=== PATIENT | male | born 1940 | race Caucasian/White ===

== ENCOUNTER → 2018-03-01 10:11 | Outpatient (CLI) | payer MEDICARE, MEDICAID, SELFPAY ==
--- NOTE | 2018-03-01 | CA_ITS ---
PROCEDURE: 2-D M-mode and color Doppler study INDICATIONS FOR THE TEST: Chest pain COPD Heart Murmur Tobacco Smoking Palpitations Fatigue Syncope Edema+ Hypertension+Diabetes Mellitus Rheumatic Fever SOB WARREN+Obesity Hyperlipidemia Family History HD Additional History PATIENT INFORMATION HEIGHT: 68 WEIGHT: 180 GENDER: Male B/P: 161/83 2-D/M-MODE INTERPRETATION: 2-D MEASUREMENTS OBSERVED VALUES IN CMS Right Ventricular Dimension (RVDd) 2.4 Interventricular Septum (Thickness)(IVsd) 1.0 Left Ventricular Internal Dimensions(LVIDd) 5.1 Left Ventricular Posterior Wall (Thickness)(LVPWd) 0.9 Aortic Root 2.8 Aortic Cusp Separation 2.1 Left Atrial Dimensions (LAD) 3.9 2D 1. Left atrium is mildly enlarged, left ventricle is normal size, mild qualitative concentric left ventricular hypertrophy, visually estimated ejection fraction 55% with no obvious regional wall motion abnormality. 2. The right atrium and right ventricle are normal size and contractility. 3. The aortic valve is minimally thickened and calcified leaflet continue to display mobility. 4. The mitral and tricuspid valve leaflets are minimally thickened. 5. The pulmonic valve is poorly visualized. 6. No significant pericardial effusion noted. DOPPLER INTERROGATION: Doppler interrogation of the aortic, mitral and tricuspid valvular presence of mild aortic, mild mitral and tricuspid regurgitation, tricuspid and jet velocity is insufficient for calculation of the right ventricular systolic pressure, grade 1 diastolic dysfunction seen with tissue Doppler evidence of raised left atrial pressure. CONCLUSION: 1. Mildly enlarged left atrium, normal left ventricular size, mild qualitative concentric left ventricular hypertrophy, visually estimated ejection fraction 55% with no obvious regional wall motion abnormality, grade 1 diastolic dysfunction seen with tissue Doppler evidence of raised left atrial pressure. 2. Mild aortic, mild mitral and tricuspid regurgitation 3. No significant pericardial effusion noted.
== END ==
PROVIDERS: Family Provider Nurse Practitioner Family; PCP Nurse Practitioner Family; Visit Provider Nurse Practitioner Family
DX: R60.0 Localized edema (principal)
CPT/HCPCS: 93306

== ENCOUNTER 2018-04-16 08:18 | Outpatient (RCR) | payer MEDICARE, MEDICAID, SELFPAY | END 2018-05-21 11:02 | disposition home or self-care (01) | LOC: OT 08:18 | PROVIDERS: Family Provider Nurse Practitioner Family; PCP Nurse Practitioner Family; Visit Provider Orthopaedic Surgery | DX: M19.022 Primary osteoarthritis, left elbow (principal) ==

== ENCOUNTER → 2018-06-04 12:07 | Outpatient (CLI) | payer MEDICARE, MEDICAID, SELFPAY ==
--- NOTE | 2018-06-04 12:14 | NVE_ITS ---
Venous Exam Indications: 782.3 Edema. IMPRESSIONS 1. There is no evidence of significant Reflux. 2. No evidence of deep or superficial vein thrombosis involving the left lower extremity 3. No evidence of deep or superficial vein thrombosis involving the right lower extremity Complete lower extremity venous duplex evaluation. Doppler flow study including spectral analysis, color and hay scale imaging. Location: Vascular laboratory. Patient status: Outpatient. Tables: Venous flow and imaging: + +-------+ + Location Overall Flow properties + +-------+ + Right common femoral Patent Normal phasicity; spontaneous; normal augmentation; compressible + +-------+ + Right saphenofemoral junction Patent Compressible + +-------+ + Right profunda femoral Patent Compressible + +-------+ + Right femoral Patent Normal phasicity; spontaneous; normal augmentation; compressible; no reflux + +-------+ + Right greater saphenous Patent Normal phasicity; spontaneous; normal augmentation; compressible + +-------+ + Right popliteal Patent Normal phasicity; spontaneous; normal augmentation; compressible + +-------+ + Right posterior tibial Patent Compressible + +-------+ + Right peroneal Patent Compressible + +-------+ + Right gastrocnemius Patent Compressible + +-------+ + Right soleal Patent Compressible + +-------+ + Left common femoral Patent Normal phasicity; spontaneous; normal augmentation; compressible + +-------+ + Left saphenofemoral junction Patent Compressible + +-------+ + Left profunda femoral Patent Compressible + +-------+ + Left femoral Patent Normal phasicity; spontaneous; normal augmentation; compressible + +-------+ + Left greater saphenous Patent Normal phasicity; spontaneous; normal augmentation; compressible + +-------+ + Left popliteal Patent Normal phasicity; spontaneous; normal au
--- NOTE | 2018-06-04 12:17 | US_ITS ---
US Arterial Ankle Brachial Ind History: Pain with walking, claudication ORDERING PHYSICIAN: Jackelyn Thompson PATIENT AGE: 78 years TECHNIQUE: Segmental pressures obtained of both right and left leg. These are compared to brachial blood pressure to yield index at each level sampled including summary HANNAH. The data sheets from the procedure are available in PACS FINDINGS Rest study only performed today No prior studies available for comparison. Blood pressures reported are in millimeters mercury. RIGHT LEG HANNAH = 1.2. RIGHT LEG TBI=.8 Brachial BP: 183 Thigh BP: 197 Calf BP: 211 Ankle PT: 214 Ankle DP : 200 Digit =147 LEFT LEG HANNAH = .9 LEFT LEG TBI= .8 Brachial BPD: 174 Thigh BP: 199 Calf BP: 196 Ankle PT:158 Ankle DP: 151 Digit = 153 Pulses and waveforms: Normal IMPRESSION: The ABIs as reported above are within normal limits. Waveforms and pulses are also unremarkable.
== END ==
PROVIDERS: Family Provider Nurse Practitioner Family; PCP Nurse Practitioner Family; Visit Provider Nurse Practitioner Family
DX: R60.1 Generalized edema (principal); R09.89 Other specified symptoms and signs involving the circulatory and respiratory systems
CPT/HCPCS: 93922; 93970

== ENCOUNTER → 2020-10-23 09:10 | Outpatient (CLI) | payer MEDICARE, MEDICAID, SELFPAY ==
--- NOTE | 2020-10-23 09:17 | XR_ITS ---
PROCEDURE: XR CHEST 2V CLINICAL HISTORY: COUGH COMPARISON: CR CXR CHEST(2 VIEWS-NOT PORTABLE) from 03/30/2016 CT CTAC CTA-CHEST from 03/30/2016 CR CXR CHEST(2 VIEWS-NOT PORTABLE) from 07/30/2016 CR CXR2V XR chest 2V from 04/04/2018 FINDINGS: Normal heart size. There is some prominence of the right hilum which has developed in the interval. This may only be related to vascular crowding. Follow-up is suggested with better inspiration. Alternatively, CT chest with contrast may be of further value is well. There is some minimal thickening pleural thickening bilaterally.. No lobar consolidation or collapse. There are degenerative changes in the thoracic spine. IMPRESSION: Prominent right hilum which may be result of less than optimal inspiration with vascular crowding. Follow-up suggested to exclude underlying hilar pathology. Otherwise negative Dictated by: Wade Nugent MD 10/23/2020 10:21 Wade Nugent MD in [place] 10/23/2020 10:21
== END ==
PROVIDERS: PCP Nurse Practitioner; Visit Provider Nurse Practitioner
DX: R05 Cough (principal)
CPT/HCPCS: 71046

== ENCOUNTER → 2020-10-29 09:13 | Outpatient (CLI) | payer MEDICARE, MEDICAID, SELFPAY ==
--- NOTE | 2020-10-29 09:18 | CT_ITS ---
PROCEDURE: CT CHEST W CON CLINCAL INDICATION: COUGH [id number] COMPARISON: CT CTAC CTA-CHEST from 03/30/2016 CR XR CHEST 2V from 10/23/2020 TECHNIQUE: IV Contrast: 75ml Isovue 370 Axial images obtained with sagittal and coronal reformats. All CT scans at the facility use one or more dose reduction, viz: automated exposure control, ma/kV adjustment per patient size (including targeted exams where dose is matched to indication, i.e. head), or iterative reconstruction technique. FINDINGS: HEART AND MEDIASTINAL STRUCTURES: There are few scattered small lymph nodes. No evidence of aortic aneurysm or dissection. No mediastinal or hilar mass. There are small bilateral hilar lymph nodes and mildly prominent subcarinal lymph node measuring up to 2 cm slightly more prominent compared to the previous exam. Hilar nodes are also slightly more prominent. Right hilar node measures 1.9 by 1.3 cm. Coronary artery calcifications LUNGS AND PLEURAL SPACES: Old granulomatous disease. Chronic changes are present in the lower lobes with nodular areas noted in the major fissure on the right not significantly changed. Motion artifact does somewhat obscure fine detail of the lungs and could obscure small nodules. There is an area of atelectasis or infiltrate within the left lower lobe anteriorly and left lower lobe laterally. BONY STRUCTURES: Degenerative changes thoracic spine UPPER ABDOMEN: Diffuse fatty liver infiltration. Questionable small gallstone. ADDITIONAL FINDINGS: No other significant abnormalities. IMPRESSION: 1. Mildly prominent mediastinal and hilar lymph nodes nonspecific. Right hilar node may account for the mild prominence of the mediastinum noted on the radiograph. 2. Old granulomatous disease with chronic changes 3. Left lower lobe atelectasis or infiltrate Dictated by: Wade Nugent MD 10/30/2020 12:44 Wade Nugent MD in [place] 10/30/2020 12:44
[2020-10-29 09:45] LABS: Blood Urea Nitrogen 15 mg/dl (9-20); Estimated Glomerular Filt Rate 58 ml/min (>60); GFR (African American) 70 ML/MIN (>60)
== END ==
PROVIDERS: PCP Nurse Practitioner; Visit Provider Nurse Practitioner
DX: R05 Cough (principal)
CPT/HCPCS: 36415; 71260; 82565; 84520; Q9967

== ENCOUNTER → 2021-03-03 08:31 | Outpatient (CLI) | payer MEDICARE, MEDICAID, SELFPAY | PROVIDERS: Visit Provider Internal Medicine Gastroenterology | DX: Z01.812 Encounter for preprocedural laboratory examination (principal); Z11.52 Encounter for screening for COVID-19; Z13.810 Encounter for screening for upper gastrointestinal disorder | CPT/HCPCS: U0003 ==

== ENCOUNTER 2021-03-05 10:01 | Day surgery (SDC) | payer MEDICARE, MEDICAID, SELFPAY ==
[2021-03-02 13:31] VITALS: BMI 28.1
[2021-03-05 10:55] VITALS: BP 145/70; PULSE 68; RESP 18; TEMP 36.8; O2SAT 98
[2021-03-05 11:15] LABS: POC Glucose,Bedside 113 (70-110)
--- NOTE | 2021-03-05 11:50 | P.PN_ITS ---
[facility] Anesthesia Checklist - Patient Identification Patient Identification: Arm Band - Structural Data Admitted From: Home Planned Operative Procedure/s: egd Consent for Planned Operative Procedure(s) Verified: Yes Verified Documents: Surgical Consent, History and Physical - NPO Status Verified Time NPO: 00:00 - Additional verifications Anesthesia Reactions: No - Airway Assessment C-Spine Mobility Assessed: Yes (mp2) TMJ Mobility Assessed: Yes Dentition: Edentulous - Neurological Assessment Level of Consciousness: Awake, Alert - Anesthesia Plan Anesthesia Risk discussed: Yes Anesthesia Plan: Verified ASA Class: III Anesthesia Type: MAC [facility] History I have reviewed the patient's past medical history: Yes Medical History: Reports:: Diabetes Mellitus Type 2, Gastroesophageal Reflux Disease(GERD), Hypertension Denies:: Cancer, Diabetes Mellitus Type 1, Internal Pacemaker, MRSA, Seizures *Have you ever received a pneumonia vaccine?: Yes *Have you received a flu vaccine this season?: Yes Other Medical History: Reports: Hypothyroidism Anesthesia experience/problems:: nac Other Surgeries: Yes: No Previous Surgery. No: Pacemaker Amputation: No Fractures: No - *Social History Smoking Status: Never smoker Tobacco Type: smokeless tobacco # Packs/Day (cigarettes): 1 Alcohol Intake: never Substance Use Type: denies use *Occupational Status:: other *Travel in the last 8 weeks: None Family Hx:: No significant family history
--- NOTE | 2021-03-05 11:58 | HMH.PROC ---
[facility] Procedure Note Procedure Note:: Upper Endoscopy Procedure Report: Esophagogastroduodenoscopy with cold biopsies and TTS balloon dilation Endoscopost: Iain Schwarz II, MD Referring Physician: PIETRO Garcia Date of Procedure: March 05, 2021 Equipment: Olympus GIF 190 standard upper endoscope Sedation: MAC sedation Indications: Mr. Saldaña is an 81-year-old gentleman with coughing, choking and dysphagia. This primarily occurs with solid foods and he has had this for the last 2 or 3 years. The patient reports no heartburn or reflux. He reports no belching, indigestion, bloating or dyspepsia. The patient's sed rate was 2. He has normal hemoglobin 14.6 and hematocrit 42.8. His DENISE screen was negative and his C reactive protein was 5.0. He did have a CT scan of the chest that did show old granulomatous changes and some chronic changes in the lower lobes with nodular areas noted. There was also some mildly prominent mediastinal and hilar lymph nodes. The patient's tuberculosis quantiferon was normal. Procedure: Prior to the procedure, a history and physical exam was performed, and patient's medications and allergies were reviewed. The risks, benefits and alternatives of the sedation and procedure were discussed with the patient. All questions were answered and informed consent was obtained. The patient was brought to the procedure room. Patient identification and proposed procedure were verified by the physician and the nurse. The patient was placed in a left lateral decubitus position and the scope was passed under direct vision. Throughout the procedure, the patient's blood pressure, pulse, and oxygen saturations were monitored continuously. The upper GI endoscopy was accomplished without difficulty. The patient tolerated the procedure well. Findings: The scope was passed directly into the upper esophagus and advanced to the third portion of the duodenum. The post bulbar duodenum and duodenal bulb were normal with normal mucosa and conniventes. The scope was withdrawn through a normal duodenal bulb and pylorus into the stomach. There was mild linear reactive gastropathy of the antrum. There was some mild chronic gastritis of the body and fundus of the stomach. Cold biopsies were obtained from the lesser curvature. Upon retroflexion there was a small 1 to 2 cm hiatal hernia. The scope was then withdrawn into the esophagus. There was a distal Schatzki's ring. There was no evidence of reflux esophagitis. There was a serrated Z-line and biopsies were taken at the GE junction. The Schatzki's ring and entire esophagus were dilated to 60 Indonesian/20 mm with a TTS hydrostatic balloon. There was some mild esophageal dysmotility. There was some cricopharyngeal spasm. The remainder of the esophageal mucosa was normal. Impression: 1. Cricopharyngeal spasm status post dilation to 20 mm 2. Schatzki's ring dilated to 20 mm 3. Nonerosive GERD with mild esophageal dysmotility and very small sliding hiatal hernia 4. Mild linear gastropathy of antrum and mild chronic gastritis (type A) Plan: I will follow-up the biopsies. I will place the patient on omeprazole 40 mg daily for 3 months. I will discuss the findings with the patient and family.
[2021-03-05 12:00] VITALS: BP 136/68; PULSE 58; RESP 18; TEMP 36.1; O2SAT 97
[2021-03-05 12:10] VITALS: BP 139/83; PULSE 53; RESP 18; O2SAT 92
[2021-03-05 12:20] VITALS: BP 151/71; PULSE 53; RESP 18; O2SAT 93
[2021-03-05 12:30] VITALS: BP 162/72; PULSE 52; RESP 18; O2SAT 94
[2021-03-05 12:40] VITALS: O2SAT 97
== END 2021-03-05 12:30 | disposition home or self-care (01) ==
LOC: OUTP 10:03
PROVIDERS: PCP Nurse Practitioner; Visit Provider Internal Medicine Gastroenterology
PROC: 0DJ08ZZ Inspection of Upper Intestinal Tract, Via Natural or Artificial Opening Endoscopic (ICD-10-PCS; CPT 43235; principal; 2021-03-05 11:30)
DX: J39.2 Other diseases of pharynx (principal); K22.2 Esophageal obstruction; K21.9 Gastro-esophageal reflux disease without esophagitis; K22.4 Dyskinesia of esophagus; K44.9 Diaphragmatic hernia without obstruction or gangrene; K31.9 Disease of stomach and duodenum, unspecified; K29.50 Unspecified chronic gastritis without bleeding; E11.9 Type 2 diabetes mellitus without complications; I10 Essential (primary) hypertension; E07.9 Disorder of thyroid, unspecified; Z79.899 Other long term (current) drug therapy
CPT/HCPCS: 43239; 43249; 82962; 88305; C1726

== ENCOUNTER → 2021-03-29 14:07 | Outpatient (CLI) | payer MEDICARE, MEDICAID, SELFPAY ==
--- NOTE | 2021-03-29 14:19 | CT_ITS ---
PROCEDURE: CT CHEST WO CON CLINICAL INDICATION: Adenopathy F/U COMPARISON: CT CT CHEST W CON from 10/29/2020 TECHNIQUE: Axial images obtained with sagittal and coronal reformats. All CT scans at the facility use one or more dose reduction, viz: automated exposure control, ma/kV adjustment per patient size (including targeted exams where dose is matched to indication, i.e. head), or iterative reconstruction technique. FINDINGS: HEART AND MEDIASTINAL STRUCTURES: Scattered small nodes in mediastinum and right hilum not significantly changed. Coronary artery calcifications. LUNGS AND PLEURAL SPACES: Old granulomatous disease. 7 x 3 mm fissural nodule in the right minor fissure unchanged. 6 mm nodule just lateral to the heart in the right middle lobe unchanged. Possible 5 mm nodule right lower lobe image 48 versus bifurcating vessel unchanged. 3 mm fissural nodule image 35 unchanged. 3 mm fissural nodule along the major fissure superiorly on the left image 34 unchanged chronic atelectatic/fibrotic change in the left upper lobe inferiorly and left lower lobe inferiorly. No new nodules. No lobar consolidation or collapse. BONY STRUCTURES: Degenerative changes thoracic spine with mild kyphosis. UPPER ABDOMEN: Unremarkable. ADDITIONAL FINDINGS: No other significant abnormalities. IMPRESSION: Overall stable CT appearance of the chest. Evidence of old granulomatous disease with scattered small noncalcified pulmonary nodules which are stable. No change small mediastinal and right hilar lymph nodes Dictated by: Wade Nugent MD 03/30/2021 07:45 Wade Nugent MD in [place] 03/30/2021 07:45
== END ==
PROVIDERS: PCP Nurse Practitioner; Visit Provider Internal Medicine Pulmonary Disease
DX: R59.0 Localized enlarged lymph nodes (principal)
CPT/HCPCS: 71250

== ENCOUNTER 2021-04-22 14:10 | Emergency (ER) | payer MEDICARE, MEDICAID, SELFPAY ==
[2021-04-22 14:41] VITALS: BP 149/90; PULSE 89; RESP 20; TEMP 36.7; O2SAT 96; BMI 28.5
[2021-04-22 14:50] LABS: UTC Strep Screen (Rapid) Positive (Negative)
--- NOTE | 2021-04-22 15:08 | HMH.EDUTC ---
[facility]position Clinical Impression: Strep throat Disposition: Home, Self-Care Condition on Discharge: Good Instructions: Strep Throat, DI for Strep Throat Additional Instructions: Drink plenty of fluids. Take tylenol or ibuprofen for pain or fever. Take the medications as directed. Follow up with your regular doctor. GO TO THE ER FOR ANY WORSENING SYMPTOMS Throw your tooth brush away and get a new one. Prescriptions: Amoxicillin [Amoxicillin 500mg Tab] 500 mg PO TID 10 Days #30 tab Transmission Status: Received by [facility] Referrals: Roselia Brady APRN [Primary Care Provider] - Time of Disposition: 15:11 Medical Decision Making - Medical Records Medical records reviewed: No: I reviewed the patient's medical records. - Jemal Inquiry Pt receiving controlled substance: No Vital Signs: 04/22/21 14:41 04/22/21 15:13 Temperature 98.1 F 98.2 F Temperature Source Oral Pulse Rate 85 Pulse Rate [Right] 89 Respiratory Rate 20 16 Blood Pressure 144/82 H Blood Pressure [Right Arm] 149/90 H Blood Pressure Mean [Right Arm] 109 02 Sat by Pulse Oximetry 96 - Lab Data Lab results reviewed: Yes: I reviewed the patient's lab results. Lab Results 04/22/21 14:47: Strep Scn Rapid Clinic Positive A [facility] HPI - General Stated complaint: headache diarrhea cough Time Seen by Provider: 04/22/21 15:08 Mode of Arrival: Ambulatory Source of Information: Patient Limitations: No Limitations Description of Symptoms (Recalled from Triage Doc. by RN): pt c/o cough, diarhea and CRUZ HEENT Symptoms (Recalled from RN notes): Yes (CRUZ) Resp Symptoms (Recalled from RN notes): Yes (cough) Skin Symptoms (Recalled from RN notes): No MS Symptoms (Recalled from RN notes): No Functional Status (Recalled from RN notes): na - History of Present Illness Provider Complaint: He states that for the past 2 days he has been having sore throat and feeling bad. He denies any cough. - Related Data Home Medications Medication Instructions Recorded Confirmed Amitriptyline HCl [Elavil 50mg 50 mg PO HS 04/04/18 03/30/21 tablet] Amlodipine Besylate [Amlodipine 10 mg PO DAILY 04/04/18 03/30/21 10mg Tab] Gabapentin [Gabapentin 300mg Cap] 300 mg PO TID 04/04/18 03/30/21 Metoprolol Succinate [Toprol XL 50 mg PO DAILY 04/04/18 03/30/21 50mg Tablet] allopurinoL [Allopurinol 300mg 300 mg PO DAILY 04/04/18 03/30/21 tablet] cloNIDine HCL [cloNIDine 0.1mg 0.1 mg PO BID 04/04/18 03/30/21 Tablet] glipizide 10 mg tablet 10 mg PO TID tab 01/25/21 03/30/21 lisinopril 5 mg tablet 5 mg PO DAILY 01/25/21 03/30/21 Empagliflozin [Jardiance] 25 mg PO DAILY 03/05/21 03/30/21 Levothyroxine Sodium 25 mcg PO DAILY 03/05/21 03/30/21 [Levothyroxine 25mcg (0.025mg) Tab] Omeprazole 40 mg PO DAILY 03/05/21 03/30/21 Previous Rx's Medication Instructions Recorded Amoxicillin [Amoxicillin 500mg Tab] 500 mg PO TID 10 Days #30 tab 04/22/21 Allergies Allergy/AdvReac Type Severity Reaction Status Date / Time No Known Allergies Allergy Verified 04/22/21 14:46 - Worker's Comp Is this a Worker's Comp case?: No [facility] History - Hepatitis A Screen Drug use history?: No High risk sexual behaviors?: No History of sexually transmitted infection?: No Currently employed?: No Childcare worker?: No Do you have indoor plumbing?: Yes Do you have electricity?: Yes Attestation statement:: This patient has been screened for Hepatitis A risk factors. I have reviewed the patient's past medical history: Yes Medical History: Reports:: Diabetes Mellitus Type 2, Gastroesophageal Reflux Disease(GERD), Hypertension Denies:: Cancer, Diabetes Mellitus Type 1, Internal Pacemaker, MRSA, Seizures Other Medical History: Reports: Hypothyroidism Other Surgeries: Yes: No Previous Surgery. No: Pacemaker Amputation: No Fractures: No - Social History Smoking Status: Never smoker Tobacco Type: smokeless tob
[2021-04-22 15:13] VITALS: BP 144/82; PULSE 85; RESP 16; TEMP 36.8
== END 2021-04-22 15:21 | disposition home or self-care (01) ==
PROVIDERS: Emergency Provider Nurse Practitioner Family; PCP Nurse Practitioner
DX: J02.0 Streptococcal pharyngitis (principal); E03.9 Hypothyroidism, unspecified; E11.9 Type 2 diabetes mellitus without complications; K21.9 Gastro-esophageal reflux disease without esophagitis; I10 Essential (primary) hypertension; Z79.899 Other long term (current) drug therapy
CPT/HCPCS: G0463; 87880; 99203; U0003

== ENCOUNTER → 2022-12-29 09:33 | Outpatient (CLI) | payer MEDICARE, MEDICAID, SELFPAY ==
--- NOTE | 2022-12-29 09:33 | US_ITS ---
FINAL REPORT CLINICAL HISTORY: abnormal ekg, dyspnea, HTN, right claudication, right rest pain FINDINGS: LOWER EXTREMITY SEGMENTAL PRESSURE MEASUREMENTS FINDINGS: Pressure indices are as follows: RIGHT LOWER EXTREMITY: Thigh: 1.11 Calf: 0.99 Ankle, posterior tibial artery: 0.98 Ankle, dorsalis pedis: 0.96 Toe: 0.99 HANNAH: 0.98, normal LEFT LOWER EXTREMITY: Thigh: 0.92 Calf: 064 Ankle, posterior tibial artery: 0.67 Ankle, dorsalis pedis: 0.96 Toe: 0.56 HANNAH: 0.96, normal IMPRESSION: Normal HANNAH bilaterally. Reviewed, Interpreted and Dictated by Concha Leary MD Transcribed by Mary Rodriguez Authenticated and [facility]
== END ==
PROVIDERS: PCP Physician Assistant; Visit Provider Nurse Practitioner
DX: I10 Essential (primary) hypertension (principal); I73.9 Peripheral vascular disease, unspecified; M25.561 Pain in right knee; R06.09 Other forms of dyspnea; R94.31 Abnormal electrocardiogram [ECG] [EKG]
CPT/HCPCS: 93306; 93923

== ENCOUNTER 2023-06-14 08:48 | Emergency (ER) | payer MEDICARE, MEDICAID, SELFPAY ==
--- NOTE | 2023-06-14 08:54 | ECG_ITS ---
APPROVED REPORT Exam: Resting ECG HR:52 bpm ECG Measurements Heart Rate 52 AXES TN 165 P 43 QRSd 96 QRS -6 QT 454 T 60 QTc 434 Conclusion SINUS BRADYCARDIA INFERIOR MYOCARDIAL INFARCTION , PROBABLY OLD [40+ ms Q WAVE AND/OR ST/T ABNORMALITY IN II/aVF] ABNORMAL ECG UNCONFIRMED REPORT Electronically signed by : Christofer Brown MD 06/15/2023 21:28:45
[2023-06-14 08:58] VITALS: BP 189/76; PULSE 52; O2SAT 95
[2023-06-14 09:01] VITALS: BP 173/94; PULSE 49; O2SAT 96
[2023-06-14 09:02] VITALS: BP 173/94; PULSE 51; RESP 15; TEMP 36.7; O2SAT 96; BMI 27.3
--- NOTE | 2023-06-14 09:11 | PC.NURSE ---
Dr. Vaughn at [facility] for patient eval
--- NOTE | 2023-06-14 09:16 | CT_ITS ---
FINAL REPORT TECHNIQUE: Thin section axial CT with IV contrast supplemented with multiplanar reconstruction under CT angiogram protocol. 3-D reconstructions were performed. This study was performed with techniques to keep radiation doses as low as reasonably achievable (ALARA). Individualized dose reduction techniques using automated exposure control or adjustment of mA and/or kV according to the patient''s size were employed. CLINICAL HISTORY: one week intermittent headache/vertigo FINDINGS: There is 30% stenosis of the basilar artery. There is approximately 30% stenosis of the right M1 segment. No other evidence of stenosis or occlusion is identified. 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 30% stenosis of the right M1 segment. Reviewed, Interpreted and Dictated by Chester Reyes III, MD Transcribed by Italia Isaac Authenticated and [facility]
--- NOTE | 2023-06-14 09:17 | CT_ITS ---
FINAL REPORT TECHNIQUE: Thin section axial CT with IV contrast supplemented with multiplanar reconstruction under CT angiogram protocol. This study was performed with techniques to keep radiation doses as low as reasonably achievable (ALARA). Individualized dose reduction techniques using automated exposure control or adjustment of mA and/or kV according to the patient''s size were employed. NASCET criteria was utilized during interpretation. CLINICAL HISTORY: one week intermittent headache/dizziness FINDINGS: Aortic arch: Arch shows no significant narrowing. Great vessel origins are widely patent. Right carotid: There is calcified plaque at the carotid bifurcation. No significant stenosis is identified. Left carotid: The common carotid artery is intact. There is greater than 70% stenosis at the level of the carotid bulb. The more distal internal carotid artery is normal. 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 The left vertebral artery is patent. 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 Reviewed, Interpreted and Dictated by Chester Reyes III, MD Transcribed by Italia Isaac Authenticated and . [facility]
--- NOTE | 2023-06-14 09:17 | CT_ITS ---
FINAL REPORT CLINICAL HISTORY: one week intermittent headache dizziness COMPARISON: None FINDINGS: Axial images of the head were obtained without contrast. Coronal reformatted images were also obtained. This study was performed with techniques to keep radiation doses as low as reasonably achievable (ALARA). Individualized dose reduction techniques using automated exposure control or adjustment of mA and/or kV according to the patient''s size were employed. There is generalized age-appropriate atrophy. Periventricular low-attenuation areas are seen consistent with mild chronic ischemic changes. There is no evidence of intracranial hemorrhage or mass. 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 There is no evidence of acute infarct. There is no evidence of shift of the midline structures. No skull abnormality is seen on the bone window images. There is mild mucoperiosteal thickening of the right maxillary sinus with right maxillary wall thickening consistent with chronic sinusitis. IMPRESSION: Atrophy and mild periventricular chronic ischemic changes. No acute intracranial abnormality identified. Chronic sinusitis. Reviewed, Interpreted and Dictated by Chester Reyes III, MD Transcribed by Evie Bell Authenticated and [facility]
[2023-06-14 09:28] LABS: Basophils % 0.5 % (0.1-2.0); Eosinophils # 0.2 K/mm3 (0.0-0.4); Eosinophils % 3.5 % (0.1-12.0); Hemoglobin 16.1 g/dL (14.1-18.0); Lymphocytes # 1.8 K/mm3 (0.7-4.5); Lymphocytes % 28.7 % (10-50); Mean Corpuscular HGB Conc 33.6 g/dL (31.8-35.4); Mean Corpuscular Hemoglobin 33.4 pg (27.0-31.2); Mean Corpuscular Volume 99.6 fl (80-94); Mean Platelet Volume 8.8 fl (7.4-10.4); Monocytes # 0.5 K/mm3 (0.1-1.0); Monocytes % 7.2 % (1.7-9.3); Neutrophils # 3.8 K/mm3 (1.8-7.8); Neutrophils % 60.2 % (37.0-80.0); Platelet Count 165 K/mm3 (142-424); Red Blood Count 4.82 M/mm3 (4.60-6.20); Red Cell Distribution Width 13.9 % (11.5-17.5); White Blood Count 6.3 K/mm3 (4.8-10.8)
[2023-06-14 09:29] LABS: Chloride 102 mmol/L (98-107); Potassium 4.1 mmoL/L (3.5-5.1); Sodium 137 mmol/L (136-145)
--- NOTE | 2023-06-14 09:30 | PC.NURSE ---
Pt is out of room to CT scan
[2023-06-14 09:32] LABS: Alanine Aminotransferase 39 U/L (12-78); Albumin Level 4.6 g/dl (3.5-5.0); Albumin/Globulin Ratio 1.7 (1.1-1.8); Alkaline Phosphatase 71 U/L (38-126); Anion Gap 9.1 mEq/L (5-15); Aspartate Amino Transferase 38 U/L (17-59); Bilirubin,Total 0.5 mg/dl (0.2-1.3); Blood Urea Nitrogen 17 mg/dl (9-20); Calcium 9.1 mg/dl (8.4-10.2); Carbon Dioxide 30 mmol/L (22.0-30.0); Creatinine Clearance Estimated 52 mL/min (50-200); Estimated Glomerular Filt Rate 58 ml/min (>60); GFR (African American) 70 ML/MIN (>60); Globulin 2.7 g/dL (1.3-3.2); Glucose 150 mg/dl (74-100); Total Protein,Serum 7.3 g/dl (6.3-8.2)
--- NOTE | 2023-06-14 10:11 | HMH.EDGENADL ---
Discharge Plan Disposition Patient Disposition: Home, Self-Care Prescriptions Prescriptions: New aspirin [Adult Aspirin Regimen] 81 mg tablet,delayed release (DR/EC) 81 mg PO DAILY Qty: 60 0RF clopidogrel 75 mg tablet 75 mg PO DAILY Qty: 60 0RF No Action lisinopril 40 mg tablet 40 mg PO DAILY Qty: 30 2RF glipizide 10 mg tablet 10 mg PO TID clonidine HCl 0.1 MG tablet 0.1 mg PO BID metoprolol succinate 50 MG tablet 50 mg PO DAILY amitriptyline 50 MG tablet 50 mg PO HS amlodipine 10 MG tablet 10 mg PO DAILY gabapentin 300 MG capsule 300 mg PO TID allopurinol 300 MG tablet 300 mg PO DAILY levothyroxine 25 MCG tablet 25 mcg PO DAILY empagliflozin 25 MG tablet 25 mg PO DAILY omeprazole 40 MG capsule,delayed release(DR/EC) 40 mg PO DAILY Referrals Follow up/Referrals: Roselia Brady APRN [Primary Care Provider] - See instructions Activity Restrictions/Add. Instructions Additional Instructions/Restrictions: Please call [facility] stroke clinic at [phone] as soon as possible to follow-up and be seen in clinic for possible stroke. Please begin taking aspirin 81 mg daily and clopidogrel 75 mg daily until follow-up with stroke. Please return the emergency department if you develop any new or worsening symptoms or become concerned for your health. Clinical Impressions Clinical Impression: Vertigo, Occlusion of right vertebral artery, Stroke Discharge ED Provider: Jono Vaughn Adult HPI General Chief complaint: Dizziness Stated complaint: HEADACHE, DIZZINESS, NO BALANCE Time Seen by Provider: 06/14/23 09:06 Mode of Arrival: Ambulatory Source of Information: Patient and Relative Limitations: No Limitations Description of Symptoms (Recalled from ER Triage Doc. by RN): 83 yo M presents to ED with c/o weakness, headache, dizziness. pt reports symptons ongoing for the past week. History of Present Illness HPI narrative: 83-year-old male, history of hypertension, [id number] diabetes presents with intermittent headache and vertigo starting 1 week ago. He reports that he symptoms gets headaches but this is more significant than normal. Reports approximate 7 out of 10. Frontal in nature. Patient ports that he sometimes gets dizzy, but he feels like the room is spinning and this is definitely different than normal. He reports that the symptoms sometimes go away, but it been ongoing for a couple of days at least most recently. Denies any recent fever or illness, denies any recent trauma. Related Data Home Medications Medication Instructions Recorded Confirmed allopurinol 300 mg tablet 300 mg PO DAILY GOUT 04/04/18 02/28/23 amitriptyline 50 mg tablet 50 mg PO HS SLEEP 04/04/18 02/28/23 amlodipine 10 mg tablet 10 mg PO DAILY HTN 04/04/18 02/28/23 clonidine HCl 0.1 mg tablet 0.1 mg PO BID HTN 04/04/18 02/28/23 gabapentin 300 mg capsule 300 mg PO TID NEUROPATHY 04/04/18 02/28/23 metoprolol succinate 50 mg 50 mg PO DAILY HTN 04/04/18 02/28/23 tablet,extended release 24 hr glipizide 10 mg tablet 10 mg PO TID Diabetes 01/25/21 02/28/23 empagliflozin 25 mg tablet 25 mg PO DAILY Diabetes 03/05/21 02/28/23 levothyroxine 25 mcg tablet 25 mcg PO DAILY thyroid 03/05/21 02/28/23 omeprazole 40 mg capsule,delayed 40 mg PO DAILY GERD 03/05/21 02/28/23 release Previous Rx's Medication Instructions Recorded lisinopril 40 mg tablet 40 mg PO DAILY #30 tabs 01/17/23 aspirin 81 mg tablet,delayed 81 mg PO DAILY #60 tabs 06/14/23 release (Adult Aspirin Regimen) clopidogrel 75 mg tablet 75 mg PO DAILY #60 tabs 06/14/23 Allergies Allergy/AdvReac Type Severity Reaction Status Date / Time No Known Allergies Allergy Verified 01/17/23 09:36 [facility] Disclaimer: The information contained in this section may have been updated after the patient was seen, as this information can be updated by other users. Social Histo
--- NOTE | 2023-06-14 10:31 | PC.NURSE ---
Ambulatory to restroom with assistance from staff and cane. No complications
[2023-06-14 10:36] VITALS: BP 184/92; PULSE 52; RESP 20; O2SAT 96
--- NOTE | 2023-06-14 13:12 | PC.NURSE ---
called [employer] [facility] to prepare a disc of images in preparation for possible transport.
--- NOTE | 2023-06-14 13:14 | PC.NURSE ---
called [employer] for neuro /corporate fitness program coordinator
--- NOTE | 2023-06-14 13:17 | PC.NURSE ---
Dr Vaughn spoke with back up scan coordinator
[2023-06-14 13:40] VITALS: BP 112/59; PULSE 76; RESP 17; TEMP 36.7; O2SAT 99
== END 2023-06-14 13:45 | disposition home or self-care (01) ==
PROVIDERS: Emergency Provider Emergency Medicine; PCP Nurse Practitioner
DX: H81.4 Vertigo of central origin (principal); I65.01 Occlusion and stenosis of right vertebral artery; I63.9 Cerebral infarction, unspecified
CPT/HCPCS: 70450; 70496; 70498; 80053; 85025; 93005; 96374; 99285; Q9967

== ENCOUNTER 2023-06-16 11:36 | Observation (INO) | payer MEDICARE, MEDICAID, SELFPAY ==
[2023-06-16] VITALS (13 sets, daily range): BP systolic 143–175; BP diastolic 59–97; PULSE 44–58; RESP 16–18; TEMP 36.5–36.6; O2SAT 93–98; BMI 28.1; BMI 27.7
--- NOTE | 2023-06-16 11:40 | PC.NURSE ---
NIH STROKE SCREEN OF 0, DR BOO NOTIFIED
--- NOTE | 2023-06-16 12:19 | CT_ITS ---
FINAL REPORT TECHNIQUE: Thin section axial CT with IV contrast supplemented with multiplanar reconstruction under CT angiogram protocol. 3-D reconstructions were performed. This study was performed with techniques to keep radiation doses as low as reasonably achievable (ALARA). Individualized dose reduction techniques using automated exposure control or adjustment of mA and/or kV according to the patient's size were employed. CLINICAL HISTORY: intractible vertigo COMPARISON: 06/14/2023 FINDINGS: There is mild narrowing of the basilar artery in its midportion, approximately 30% luminal diameter stenosis. There is also mild stenosis of the proximal M1 segment of the right middle cerebral artery, approximately 30% luminal diameter stenosis. No aneurysm is seen. Major intracranial vessels are patent without significant stenosis. No change is identified since the prior CTA of the head 06/14/2023. IMPRESSION: Mild narrowing of the mid basilar artery and the proximal M1 segment of the right middle cerebral artery as described, unchanged since the prior CTA of the head, 06/14/2023. No new intracranial vascular abnormality is identified. Reviewed, Interpreted and Dictated by Chester Reyes III, MD Transcribed by Elisa Capellan Authenticated and [facility]
--- NOTE | 2023-06-16 12:19 | CT_ITS ---
FINAL REPORT CLINICAL HISTORY: intractible vertigo, recently occluded vert COMPARISON: 06/14/2023 FINDINGS: Axial images of the head were obtained without contrast. Coronal and sagittal reformatted images were also obtained. This study was performed with techniques to keep radiation doses as low as reasonably achievable (ALARA). Individualized dose reduction techniques using automated exposure control or adjustment of mA and/or kV according to the patient's size were employed. There is generalized age-appropriate atrophy. Periventricular low-attenuation areas are seen consistent with moderate chronic ischemic changes. There is right occipital encephalomalacia consistent with prior infarct, unchanged since the prior head CT of June 14. There is no evidence of intracranial hemorrhage or mass. There is no evidence of acute infarct. There is no evidence of shift of the midline structures. No skull abnormality is seen on the bone window images. IMPRESSION: Atrophy and moderate periventricular chronic ischemic changes. Right occipital encephalomalacia, stable. No acute intracranial abnormality identified. Reviewed, Interpreted and Dictated by Chester Reyes III, MD Transcribed by Elisa Capellan Authenticated and [facility]
--- NOTE | 2023-06-16 12:19 | CT_ITS ---
FINAL REPORT TECHNIQUE: Thin section axial CT with IV contrast supplemented with multiplanar reconstruction under CT angiogram protocol. This study was performed with techniques to keep radiation doses as low as reasonably achievable (ALARA). Individualized dose reduction techniques using automated exposure control or adjustment of mA and/or kV according to the patient''s size were employed. NASCET criteria was utilized during interpretation. CLINICAL HISTORY: intractible vertigo COMPARISON: 06/14/2023 FINDINGS: Aortic arch: Arch shows no significant narrowing. Great vessel origins are widely patent. Right carotid: Calcified plaque is present at the carotid bifurcation. No significant stenosis is seen of the cervical common or internal carotid artery. No significant change is noted since the prior CTA of 06/14. Left carotid: There is calcified plaque at the carotid bifurcation, which produces severe stenosis, greater than 70% luminal diameter. The left internal carotid artery is otherwise unremarkable in appearance. No significant stenosis is seen of the cervical common or internal carotid artery. No changes noted since the prior CTA of 06/14/2023. Vertebral: Left vertebral artery is normal. The right vertebral artery is occluded. No changes are noted since the prior CTA of 06/14/2023. 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 No new vascular abnormality is noted in the neck. Reviewed, Interpreted and Dictated by Chester Reyes III, MD Transcribed by Elisa Capellan Authenticated and [facility]
--- NOTE | 2023-06-16 12:20 | HMH.EDGENADL ---
Discharge Plan Disposition Patient Disposition: Admitted Chief Complaint: Dizziness Prescriptions Prescriptions: No Action lisinopril 40 mg tablet 40 mg PO DAILY Qty: 30 2RF glipizide 10 mg tablet 10 mg PO TID clonidine HCl 0.1 MG tablet 0.1 mg PO BID metoprolol succinate 50 MG tablet 50 mg PO DAILY amitriptyline 50 MG tablet 50 mg PO HS amlodipine 10 MG tablet 10 mg PO DAILY gabapentin 300 MG capsule 300 mg PO TID allopurinol 300 MG tablet 300 mg PO DAILY aspirin [Adult Aspirin Regimen] 81 mg tablet,delayed release (DR/EC) 81 mg PO DAILY Qty: 60 0RF clopidogrel 75 mg tablet 75 mg PO DAILY Qty: 60 0RF levothyroxine 25 MCG tablet 25 mcg PO DAILY empagliflozin 25 MG tablet 25 mg PO DAILY omeprazole 40 MG capsule,delayed release(DR/EC) 40 mg PO DAILY Referrals Follow up/Referrals: Roselia Brady APRN [Primary Care Provider] - See instructions Clinical Impressions Clinical Impression: CVA (cerebrovascular accident), Ataxia Discharge ED Provider: Kushal Marshall General Adult HPI General Chief complaint: Dizziness Stated complaint: DIZZY, HEADACHE Time Seen by Provider: 06/16/23 11:50 Mode of Arrival: Wheelchair Source of Information: Patient Limitations: No Limitations Description of Symptoms (Recalled from ER Triage Doc. by RN): PT REPORTS HEADACHE AND DIZZINESS. REPORTS 3 DAYS OF STAGGERING AND FRONTAL HEADACHE. RECENTLY EVALUATED IN THIS ED FOR SIMILAR SYMPTOMS, REPORTS WORSENING TODAY. 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 SPEECH CLEAR, FACE SYMMETRICAL. History of Present Illness HPI narrative: Patient is a 83-year-old male with past medical history of cardiovascular disease, recently diagnosed occluded right vertebral artery who signed out AMA who presents here for evaluation of intractable dizziness. Patient presented to the ED on ?25 for evaluation of vertigo that began approximately 1 week prior to arrival. Work-up at that time was markable for occlusion of the right vertebral artery for which patient was offered transfer versus admission for full stroke evaluation for which he decided to sign out against medical vice. Since this patient has had intractable spinning to the right and veering to the right as he walks. He is only able to ambulate with significant difficulty no other acute complaints at this time. Related Data Home Medications Medication Instructions Recorded Confirmed allopurinol 300 mg tablet 300 mg PO DAILY GOUT 04/04/18 02/28/23 amitriptyline 50 mg tablet 50 mg PO HS SLEEP 04/04/18 02/28/23 amlodipine 10 mg tablet 10 mg PO DAILY HTN 04/04/18 02/28/23 clonidine HCl 0.1 mg tablet 0.1 mg PO BID HTN 04/04/18 02/28/23 gabapentin 300 mg capsule 300 mg PO TID NEUROPATHY 04/04/18 02/28/23 metoprolol succinate 50 mg 50 mg PO DAILY HTN 04/04/18 02/28/23 tablet,extended release 24 hr glipizide 10 mg tablet 10 mg PO TID Diabetes 01/25/21 02/28/23 empagliflozin 25 mg tablet 25 mg PO DAILY Diabetes 03/05/21 02/28/23 levothyroxine 25 mcg tablet 25 mcg PO DAILY thyroid 03/05/21 02/28/23 omeprazole 40 mg capsule,delayed 40 mg PO DAILY GERD 03/05/21 02/28/23 release Previous Rx's Medication Instructions Recorded lisinopril 40 mg tablet 40 mg PO DAILY #30 tabs 01/17/23 aspirin 81 mg tablet,delayed 81 mg PO DAILY #60 tabs 06/14/23 release (Adult Aspirin Regimen) clopidogrel 75 mg tablet 75 mg PO DAILY #60 tabs 06/14/23 Allergies Allergy/AdvReac Type Severity Reaction Status Date / Time No Known Allergies Allergy Verified 01/17/23 09:36 [facility] Disclaimer: The information contained in this section may have been updated after the patient was seen, as this information can be updated by other users. Social History Smoking Status: Former smoker tobacco type: smokeless tobacco alcohol intake: never substance
--- NOTE | 2023-06-16 12:30 | ECG_ITS ---
APPROVED REPORT Exam: Resting ECG HR:48 bpm ECG Measurements Heart Rate 48 AXES HI 177 P 46 QRSd 102 QRS 5 QT 468 T 67 QTc 434 Conclusion SINUS BRADYCARDIA NONSPECIFIC T-WAVE ABNORMALITY BORDERLINE ECG UNCONFIRMED REPORT Electronically signed by : Christofer Brown MD 06/16/2023 17:03:45
[2023-06-16 12:39] LABS: Chloride 101 mmol/L (98-107); Potassium 4.2 mmoL/L (3.5-5.1); Sodium 134 mmol/L (136-145)
[2023-06-16 12:41] LABS: Basophils % 0.4 % (0.1-2.0); Eosinophils # 0.2 K/mm3 (0.0-0.4); Eosinophils % 3.1 % (0.1-12.0); Hematocrit 46.9 % (42.0-52.0); Hemoglobin 15.5 g/dL (14.1-18.0); Lymphocytes # 1.7 K/mm3 (0.7-4.5); Mean Corpuscular Hemoglobin 33.1 pg (27.0-31.2); Mean Corpuscular Volume 100.3 fl (80-94); Monocytes # 0.4 K/mm3 (0.1-1.0); Monocytes % 6.3 % (1.7-9.3); Neutrophils % 63.1 % (37.0-80.0); Platelet Count 155 K/mm3 (142-424); Red Blood Count 4.68 M/mm3 (4.60-6.20); White Blood Count 6.4 K/mm3 (4.8-10.8)
[2023-06-16 12:42] LABS: Alanine Aminotransferase 35 U/L (12-78); Albumin Level 4.2 g/dl (3.5-5.0); Albumin/Globulin Ratio 1.6 (1.1-1.8); Alkaline Phosphatase 77 U/L (38-126); Anion Gap 10.2 mEq/L (5-15); Aspartate Amino Transferase 38 U/L (17-59); Bilirubin,Total 0.4 mg/dl (0.2-1.3); Blood Urea Nitrogen 18 mg/dl (9-20); Calcium 8.8 mg/dl (8.4-10.2); Carbon Dioxide 27 mmol/L (22.0-30.0); Creatinine Clearance Estimated 49 mL/min (50-200); Estimated Glomerular Filt Rate 52 ml/min (>60); GFR (African American) 63 ML/MIN (>60); Globulin 2.6 g/dL (1.3-3.2); Glucose 221 mg/dl (74-100); Total Protein,Serum 6.8 g/dl (6.3-8.2)
[2023-06-16 12:43] LABS: Magnesium 2.1 mg/dl (1.6-2.3)
--- NOTE | 2023-06-16 13:23 | PC.NURSE ---
Helped pt to restroom he is very off balance and his body pulls to the right side had to keep ahold of pt or he would stumble right
--- NOTE | 2023-06-16 14:57 | PC.NURSE ---
DR BOO AT BEDSIDE TO UPDATE PT AND FAMILY
--- NOTE | 2023-06-16 16:30 | PC.NURSE ---
GROUP EXERCISE CLASS INSTRUCTOR NOTIFIED OF ADMISSION
[2023-06-16 16:53] LABS: Hemoglobin A1C 7.1 % (4.0-6.0)
--- NOTE | 2023-06-16 17:01 | PC.NURSE ---
REPORT GIVEN TO JORGE JOSE RN
--- NOTE | 2023-06-16 17:09 | EXP.HP ---
History of Present Illness *Admission Date: 06/16/23 *Reason for visit:: dizzy *History of present illness: Mr. Saldaña is an 83-year-old male who presented to the ER with report of headache and dizziness. Has had some staggering and spinning when he stands accompanied by frontal headache for the past 3 to 5 days. Was evaluated on 06/14 for similar symptoms. They have gotten worse over the past 24 hours. Denies focal neurologic deficits, no changes in speech or vision. No facial asymmetry. When he lays down he is not dizzy but it is worse when he stands up. Son states that even with his walker he starts falling to the side. Past medical history of hyperlipidemia, hypertension, diabetes (though he denies this but is on 2 oral medications). Does not smoke or drink. Work-up in the ER with labs and imaging show CKD creatinine 1.3. CTA of the head and neck with right vertebral artery occlusion, moderate stenosis of internal carotids. Left vertebral artery open. Attempts to ambulate are difficult and he requires assistance and is dizzy. Denies syncope, nausea, vomiting, chest pain, shortness of breath. Attempted to transfer patient were unsuccessful. Patient admitted to medicine for medical management and physical therapy eval. Patient comfortable with staying at our facility after much discussion. On arrival to the floor, he is hemodynamically stable on room air. Systolic blood pressure 170 while laying down. Denies any headache at this time. No dizziness on exam while laying. Became dizzy when he stood. Son at bedside and updated of plan. [facility] Disclaimer: The information contained in this section may have been updated after the patient was seen, as this information can be updated by other users. Medical History (Updated 06/16/23 @ 18:48 by Jay Reese MD) Diabetes Hyperlipidemia Hypertension Hypothyroidism Surgical History (Updated 06/16/23 @ 19:14 by Jay Reese MD) No pertinent past surgical history Social History Smoking Status: Former smoker tobacco type: smokeless tobacco alcohol intake: never substance use type: denies use current occupational status: other Travel in the last 8 weeks: None caffeine: No Review of Systems Review of Systems Review of systems (narrative): 14 point review of systems performed, pertinent positives and negatives as per HPI Meds Home Medications and Allergies Home Medications Medication Instructions Recorded Confirmed Type allopurinol 300 mg tablet 300 mg PO DAILY GOUT 04/04/18 02/28/23 History amitriptyline 50 mg tablet 50 mg PO HS SLEEP 04/04/18 02/28/23 History amlodipine 10 mg tablet 10 mg PO DAILY HTN 04/04/18 02/28/23 History clonidine HCl 0.1 mg tablet 0.1 mg PO BID HTN 04/04/18 02/28/23 History gabapentin 300 mg capsule 300 mg PO TID NEUROPATHY 04/04/18 02/28/23 History metoprolol succinate 50 mg 50 mg PO DAILY HTN 04/04/18 02/28/23 History tablet,extended release 24 hr glipizide 10 mg tablet 10 mg PO TID Diabetes 01/25/21 02/28/23 History empagliflozin 25 mg tablet 25 mg PO DAILY Diabetes 03/05/21 02/28/23 History levothyroxine 25 mcg tablet 25 mcg PO DAILY thyroid 03/05/21 02/28/23 History omeprazole 40 mg capsule,delayed 40 mg PO DAILY GERD 03/05/21 02/28/23 History release lisinopril 40 mg tablet 40 mg PO DAILY #30 tabs 01/17/23 02/28/23 Rx aspirin 81 mg tablet,delayed 81 mg PO DAILY #60 tabs 06/14/23 Rx release (Adult Aspirin Regimen) clopidogrel 75 mg tablet 75 mg PO DAILY #60 tabs 06/14/23 Rx New Prescriptions to Start Prescriptions: Allergies Allergy/AdvReac Type Severity Reaction Status Date / Time No Known Allergies Allergy Verified 01/17/23 09:36 Exam Data for Last 24 hours Vital signs and Labs for Last 24 Hours: Temp Pulse Resp BP Pulse Ox O2 Del Method 97.9 F 51 L 18 170/74 H 96 Room Air 06/16/23 17:02 06/16/23 17:02 06/16/23 17:02 06/16
--- NOTE | 2023-06-16 17:10 | PC.NURSE ---
arrived by w/c from ED
[2023-06-16 18:20] LABS: POC Glucose,Bedside 170 (70-110)
[2023-06-16 19:14] LABS: Thyroid Stimulating Hormone 3.74 uIU/mL (0.465-4.68)
--- NOTE | 2023-06-16 19:46 | PC.NURSE ---
UNABLE TO CONFIRM HOME MEDS PATIENT DOSENT KNOW MEDS/DOSES/TIMES. SON TO BRING PILL BOTTLES TOMORROW.
[2023-06-16 20:09] LABS: POC Glucose,Bedside 163 (70-110)
[2023-06-17 04:00] VITALS: BP 156/68; PULSE 60; RESP 16; TEMP 36.6; O2SAT 95; BMI 27.6
[2023-06-17 05:13] LABS: POC Glucose,Bedside 129 (70-110)
--- NOTE | 2023-06-17 05:47 | PC.NURSE ---
PATIENT HAS RESTED WELL. NO COMPLAINTS . VSS/AFEBRILE. FSBS THIS AM WAS 129. WAITING FOR BED ASSIGNMENT AT [facility].
[2023-06-17 07:25] VITALS: BP 156/75; PULSE 71; RESP 18; TEMP 37.2; O2SAT 95
[2023-06-17 08:08] LABS: Chloride 103 mmol/L (98-107)
[2023-06-17 08:09] LABS: Potassium 4.5 mmoL/L (3.5-5.1); Sodium 136 mmol/L (136-145)
[2023-06-17 08:11] LABS: Alanine Aminotransferase 38 U/L (12-78); Albumin Level 4.3 g/dl (3.5-5.0); Albumin/Globulin Ratio 1.7 (1.1-1.8); Alkaline Phosphatase 85 U/L (38-126); Anion Gap 12.5 mEq/L (5-15); Aspartate Amino Transferase 40 U/L (17-59); Bilirubin,Total 0.8 mg/dl (0.2-1.3); Blood Urea Nitrogen 17 mg/dl (9-20); Carbon Dioxide 25 mmol/L (22.0-30.0); Cholesterol 171 mg/dl (140-200); Creatinine Clearance Estimated 49 mL/min (50-200); Estimated Glomerular Filt Rate 52 ml/min (>60); GFR (African American) 63 ML/MIN (>60); Globulin 2.6 g/dL (1.3-3.2); Total Protein,Serum 6.9 g/dl (6.3-8.2); Triglycerides 138 mg/dl (30-150); VLDL Cholesterol 28 mg/dL (0-40)
[2023-06-17 08:12] LABS: Calcium 8.9 mg/dl (8.4-10.2); Chol/HDL Ratio 4.3 (1-3.5); Glucose 184 mg/dl (74-100); HDL Cholesterol 40 mg/dl (40-60)
[2023-06-17 08:21] LABS: Basophils % 0.4 % (0.1-2.0); Eosinophils # 0.2 K/mm3 (0.0-0.4); Eosinophils % 2.4 % (0.1-12.0); Hemoglobin 16.7 g/dL (14.1-18.0); Lymphocytes # 1.7 K/mm3 (0.7-4.5); Mean Corpuscular HGB Conc 33.5 g/dL (31.8-35.4); Mean Corpuscular Hemoglobin 33.2 pg (27.0-31.2); Mean Corpuscular Volume 99.1 fl (80-94); Monocytes # 0.5 K/mm3 (0.1-1.0); Neutrophils # 5.9 K/mm3 (1.8-7.8); Neutrophils % 71.2 % (37.0-80.0); Platelet Count 172 K/mm3 (142-424); Red Blood Count 5.05 M/mm3 (4.60-6.20); White Blood Count 8.3 K/mm3 (4.8-10.8)
[2023-06-17 11:31] LABS: POC Glucose,Bedside 142 (70-110)
--- NOTE | 2023-06-17 11:49 | EXP.DC.SUM ---
General Admission date:: 06/16/23 Discharge date: 06/17/23 HPI HPI HPI: Mr. Saldaña is an 83-year-old male who presented to the ER with report of headache and dizziness. Has had some staggering and spinning when he stands accompanied by frontal headache for the past 3 to 5 days. Was evaluated on 06/14 for similar symptoms. They have gotten worse over the past 24 hours. Denies focal neurologic deficits, no changes in speech or vision. No facial asymmetry. When he lays down he is not dizzy but it is worse when he stands up. Son states that even with his walker he starts falling to the side. Past medical history of hyperlipidemia, hypertension, diabetes (though he denies this but is on 2 oral medications). Does not smoke or drink. Work-up in the ER with labs and imaging show CKD creatinine 1.3. CTA of the head and neck with right vertebral artery occlusion, moderate stenosis of internal carotids. Left vertebral artery open. Attempts to ambulate are difficult and he requires assistance and is dizzy. Denies syncope, nausea, vomiting, chest pain, shortness of breath. Attempted to transfer patient were unsuccessful. Patient admitted to medicine for medical management and physical therapy eval. Patient comfortable with staying at our facility after much discussion. On arrival to the floor, he is hemodynamically stable on room air. Systolic blood pressure 170 while laying down. Denies any headache at this time. No dizziness on exam while laying. Became dizzy when he stood. Son at bedside and updated of plan. Hospital Course Hospital Course Hospital Course: 83-year-old male with history of diabetes, hypertension, hypothyroidism who presents with less than 1 week of vertigo upon standing. Patient has had dizziness that is led to 2 visits to the ER. Denies any syncope, change in vision, nausea or vomiting. Occasional headaches. Says when he stands he feels the room spinning. CTA head showed right vertebral artery occlusion. Attempts to transfer were unsuccessful, currently on wait list with [facility]. Patient would like to stay at our facility. Discussed case with the ER, request admission for medical management and therapy eval. No intervention viable at this time. Medicine agreed to admit to inpatient care for further management. Patient's dizziness improved by morning. Seen by therapy, stable for discharge home. Recommend outpatient PT. Patient already has follow-up with neurology in a week and a half. Stable for discharge home. Problems addressed as follows: Vertigo Right vertebral artery occlusion -Patient dizzy with concerning vascular findings on head imaging. Reviewed CTA, shows lack of contrast in right vertebral artery. No focal mass or ischemic changes on CT per my review. Initiated patient on Lipitor 40 mg nightly, aspirin 81 mg daily, and Plavix 75 mg daily. Orthostatic blood pressure obtained showing drop of over 20 points systolic with change in heart rate from 48-58 going from laying to standing. Reports his dizziness is worse when he would stand. It is improved by following morning. Adjustments made to his blood pressure regimen. Recommend continuing his beta-tor and amlodipine but would recommend holding lisinopril for now until follow-up with neurology or PCP. Given improvement in symptoms, stable to discharge home. Evaluated by therapy, recommend outpatient PT for balance training. Already has a neurology appointment scheduled. No new deficits or focal neurologic deficits. Appears to have some CKD, creatinine stable at baseline during admission of 1.2-1.3. BUN within normal range. Hypertension: Continuing meds per med rec, holding clonidine and lisinopril. Gout: Continue allopurinol 300 mg daily Diabetes: Patient denies having diabetes however his A1c is 7.1 and he is on 2 diabetes medications. Continue home glipizide and empagliflozin 25 mg daily. Hypothyroidism: Continue levothyroxine 25 mcg daily. T
--- NOTE | 2023-06-17 11:53 | PC.NURSE ---
pt is alert and appropriate. does not appear to have any deficits upon assessment this am. 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 continues to report dizziness when he gets up but states it is improved.
--- NOTE | 2023-06-17 14:13 | HMH.PTEV ---
Physical Therapy Evaluation Rehab PT IP Evaluation Start: 06/16/23 16:23 Freq: ONCE Status: Active Protocol: Document 06/17/23 14:04 PDESEROUX (Rec: 06/17/23 14:13 [email or web address] [id number]) Subjective/History History History Pt. is a 83 year old male who presents to [facility] 2nd floor Inpatient setting for the Physical Therapy Inpatient initial evaluation today(06/17) w/ c/o acute and constant unsteadiness with gait, dizzieness, and headaches of insidious onset 3-4 days ago. Pt. c/o 01/28 P! with the headaches. Pt. reports he lives with his son in a 1- story home w/ a step to enter into the house. Pt.'s son reports that pt. is IND. w/ ADLs at home, but is there for assistance when he needs it. Pt. reports ambulating w/ FWW in home environment and when he leaves the house. Pt.'s son reports pt. normally staggers or loses his balance to the right w/ ambulation. PMH includes Hypertension, Hyperlipidemia, DM. Subjective Subjective Pt. reports, I get to go home tonight. Pt. was supine in hospital bed w/ son sitting in reclined next to hospital bed upon entry into pt.'s room. Pt. was agreeable to allow Physical Therapist to enter room and to participate in Inpatient Physical Therapy initial eval. today(06/17/23). New diagnosis of cancer in past 12 No months? Rehab PT IP Eval Objective Appearance Patient Behavior Appropriate,Cooperative Patient Orientation Person,Place,Name,Age,Day of Week,Situation Difficulty following instructions none Speech Pattern Clear,Appropriate,Coherent Ambulation Patient Able to Ambulate Yes Ambulation Observation Ambulation Distance (feet) 25 Ambulation Assistive Device Straight Cane Ambulation Ability Contact Guard/Hand Hold Balance Ability to Arise
--- NOTE | 2023-06-17 15:13 | PC.NURSE ---
pt has been discahrged from the facility. took all belongings with him. educated on follow up appts and PT. saline lock removed. family with pt for education
--- NOTE | 2023-06-19 11:01 | SW/DCPLANNER ---
I received a referral on this patient regarding: placement, stroke, vertebral occlusion and cerebellar sx. Per MD patient discharged home over the weekend w/ outpatient PT scheduled. Patient did not have any further needs at time of discharge per MD.
--- NOTE | 2023-06-19 16:37 | CARE MANAGER ---
Contacted patient related to hospital discharge. Spoke with son. He states he has an appointment for follow up with PCP and that he is going to pickle pumper his medications today. They deny any questions or concerns at this time. REA Ascencio
== END 2023-06-17 15:10 | disposition home or self-care (01) ==
LOC: ER 16:24 → 2ND 16:47
PROVIDERS: Admitting Provider Internal Medicine Adolescent Medicine; Emergency Provider Emergency Medicine; PCP Nurse Practitioner; Visit Provider Internal Medicine Adolescent Medicine
DX: R42 Dizziness and giddiness (principal); I65.01 Occlusion and stenosis of right vertebral artery; R27.0 Ataxia, unspecified; I10 Essential (primary) hypertension; E03.9 Hypothyroidism, unspecified; E11.9 Type 2 diabetes mellitus without complications; E78.2 Mixed hyperlipidemia; F17.290 Nicotine dependence, other tobacco product, uncomplicated; Z79.84 Long term (current) use of oral hypoglycemic drugs; Z79.899 Other long term (current) drug therapy
CPT/HCPCS: G0379; 36415; 70450; 70496; 70498; 80053; 80061; 82962; 83036; 83735; 84443; 85025; 93005; 97161; G0378; Q9967

== ENCOUNTER 2023-07-17 10:00 | Outpatient (RCR) | payer MEDICARE, MEDICAID, SELFPAY | END 2023-08-31 16:34 | disposition home or self-care (01) | LOC: PT 10:00 | PROVIDERS: PCP Nurse Practitioner; Visit Provider Nurse Practitioner | DX: R26.89 Other abnormalities of gait and mobility (principal) | CPT/HCPCS: 97110; 97112; 97163; 97530 ==

== ENCOUNTER 2023-07-18 11:12 | Emergency (ER) | payer MEDICARE, MEDICAID, SELFPAY ==
[2023-07-18] VITALS (7 sets, daily range): BP systolic 182–193; BP diastolic 80–92; PULSE 52–62; RESP 17–18; TEMP 36.6–36.7; O2SAT 96–98; BMI 27.0
--- NOTE | 2023-07-18 11:45 | HMH.EDGENADL ---
Discharge Plan Disposition Patient Disposition: Home, Self-Care Condition: Good Prescriptions Prescriptions: No Action glipizide 10 mg tablet 10 mg PO BID lisinopril 40 mg tablet 40 mg PO DAILY Qty: 90 3RF allopurinol 300 MG tablet 300 mg PO DAILY clopidogrel 75 mg tablet 75 mg PO DAILY Qty: 60 0RF atorvastatin 40 mg Tablet 40 mg PO HS aspirin 81 mg Tablet,Delayed Release (Dr/Ec) 81 mg PO DAILY levothyroxine [Synthroid] 25 mcg Tablet 25 mcg PO DAILYDM Qty: 0 0RF pantoprazole 40 mg Tablet,Delayed Release (Dr/Ec) 40 mg PO HS Qty: 0 0RF clonidine HCl 0.1 mg tablet 0.1 mg PO BID amitriptyline 50 mg tablet 50 mg PO HS gabapentin 300 mg capsule 300 mg PO TID Victoza 3-Esdras 0.6 mg/0.1 mL (18 mg/3 mL) pen injector See Rx Instructions .ROUTE .COMPLEX Rx Instructions: Inject 0.6mg SQ q day x2 weeks, then 1.2mg SQ day empagliflozin 25 MG tablet 25 mg PO DAILY Referrals Follow up/Referrals: Roselia Brady APRN [Primary Care Provider] - See instructions Activity Restrictions/Add. Instructions Additional Instructions/Restrictions: Please increase your dose of amlodipine to 20 mg daily, take your blood pressure throughout the day, and please follow-up closely with your primary care doctor. Please return with any new or worsening symptoms. Target a blood pressure of 140-150 for the time being. If your blood pressure is 140 or less I would recommend you do not take an additional blood pressure medication and recheck it later to determine if you need your blood pressure medication. Clinical Impressions Clinical Impression: Headache Qualifiers: Headache type: other headache syndrome Qualified Code(s): G44.89 - Other headache syndrome Discharge ED Provider: Kevin Xie General Adult HPI General Chief complaint: Recheck/Abnormal Lab/Rx Stated complaint: blood pressure and headache, phy referral Time Seen by Provider: 07/18/23 11:27 History of Present Illness HPI narrative: The patient presents with a chief complaint of a severe headache that has persisted for an unspecified duration. This headache is described as different from previous headaches experienced by the patient. The pain is intermittent, with periods of relief followed by recurrence. The patient has been taking Advil for pain management, but it has not provided significant relief. The patient also reports elevated blood pressure, which was noted during a visit to their primary care physician earlier in the day. The patient is on blood pressure medications, but there was a recent discovery of a missed medication, Clonidine, which the patient was supposed to be taking. The last dose of blood pressure medication was taken today, and the patient reports no changes in doses or missed doses other than the Clonidine. The patient denies experiencing chest pain or vision issues but reports feeling feverish and having a runny nose. The patient has not been tested for COVID-19. Related Data Home Medications Medication Instructions Recorded Confirmed allopurinol 300 mg tablet 300 mg PO DAILY GOUT 04/04/18 07/18/23 glipizide 10 mg tablet 10 mg PO BID Diabetes 01/25/21 07/18/23 empagliflozin 25 mg tablet 25 mg PO DAILY Diabetes 03/05/21 07/18/23 aspirin 81 mg tablet,delayed 81 mg PO DAILY CIRCULATION 06/17/23 07/18/23 release atorvastatin 40 mg tablet 40 mg PO HS Cholesterol 06/17/23 07/18/23 amitriptyline 50 mg tablet 50 mg PO HS 07/18/23 07/18/23 clonidine HCl 0.1 mg tablet 0.1 mg PO BID 07/18/23 07/18/23 gabapentin 300 mg capsule 300 mg PO TID 07/18/23 07/18/23 liraglutide 0.6 mg/0.1 mL (18 mg/3 See Rx Instructions .Route .COMPLEX 07/18/23 07/18/23 mL) subcutaneous pen injector (Victoza 3-Esdras) Previous Rx's Medication Instructions Recorded clopidogrel 75 mg tablet 75 mg PO DAILY #60 tabs 06/14/23 levothyroxine 25 mcg tablet 25 mcg PO DAILYDM #0 tabs 06/17/23 (Synthroid)
--- NOTE | 2023-07-18 11:53 | CT_ITS ---
FINAL REPORT CLINICAL HISTORY: .HEADACHE, HYPERTENSION COMPARISON: 06/16/2023 FINDINGS: Moderate generalized atrophy is noted. 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 No cortical edema is present. There is no mass or hemorrhage. Ventricles are normal. Bone windows show no skull fracture or obvious obstructive lesion. There is chronic right maxillary sinusitis and mild right ethmoid mucosal thickening. IMPRESSION: 1. No acute intracranial abnormality or obvious mass. 2. Atrophy and chronic findings as above. Reviewed, Interpreted and Dictated by Concha Leary MD Transcribed by Sherri Banks Authenticated and [facility]
--- NOTE | 2023-07-18 12:08 | PC.NURSE ---
Pt to CT
--- NOTE | 2023-07-18 12:16 | PC.NURSE ---
RETURNED FROM CT
--- NOTE | 2023-07-18 14:58 | PC.NURSE ---
DR RUIZ AT BEDSIDE TO UPDATE PT AND FAMILY
== END 2023-07-18 15:18 | disposition home or self-care (01) ==
PROVIDERS: Emergency Provider Emergency Medicine; PCP Nurse Practitioner
DX: G44.89 Other headache syndrome (principal); I10 Essential (primary) hypertension; I65.23 Occlusion and stenosis of bilateral carotid arteries; E11.9 Type 2 diabetes mellitus without complications; E03.9 Hypothyroidism, unspecified; E78.5 Hyperlipidemia, unspecified; Z87.891 Personal history of nicotine dependence; Z79.84 Long term (current) use of oral hypoglycemic drugs; Z79.85 Long-term (current) use of injectable non-insulin antidiabetic drugs
CPT/HCPCS: 70450; 99285

== ENCOUNTER 2023-07-22 13:47 | Emergency (ER) | payer MEDICARE, MEDICAID, SELFPAY ==
[2023-07-22 13:49] VITALS: BP 171/71; PULSE 56; RESP 16; TEMP 36.4; O2SAT 96; BMI 25.8
[2023-07-22 14:01] VITALS: BP 165/70; PULSE 54; O2SAT 95
--- NOTE | 2023-07-22 14:04 | HMH.EDGENADL ---
Discharge Plan Disposition Patient Disposition: Home, Self-Care Prescriptions Prescriptions: No Action glipizide 10 mg tablet 10 mg PO BID lisinopril 40 mg tablet 40 mg PO DAILY Qty: 90 3RF allopurinol 300 MG tablet 300 mg PO DAILY clopidogrel 75 mg tablet 75 mg PO DAILY Qty: 60 0RF atorvastatin 40 mg Tablet 40 mg PO HS aspirin 81 mg Tablet,Delayed Release (Dr/Ec) 81 mg PO DAILY levothyroxine [Synthroid] 25 mcg Tablet 25 mcg PO DAILYDM Qty: 0 0RF pantoprazole 40 mg Tablet,Delayed Release (Dr/Ec) 40 mg PO HS Qty: 0 0RF clonidine HCl 0.1 mg tablet 0.1 mg PO BID amitriptyline 50 mg tablet 50 mg PO HS gabapentin 300 mg capsule 300 mg PO TID Victoza 3-Esdras 0.6 mg/0.1 mL (18 mg/3 mL) pen injector See Rx Instructions .ROUTE .COMPLEX Rx Instructions: Inject 0.6mg SQ q day x2 weeks, then 1.2mg SQ day metoprolol succinate 50 mg tablet extended release 24 hr 50 mg PO DAILY amlodipine 10 mg tablet 20 mg PO DAILY empagliflozin 25 MG tablet 25 mg PO DAILY Referrals Follow up/Referrals: Roselia Brady APRN [Primary Care Provider] - See instructions Activity Restrictions/Add. Instructions Additional Instructions/Restrictions: Please keep your follow-up appointments with your neurologist and return with any new or worsening headache high fevers new or different neurologic complaints than your baseline or other concerns. Clinical Impressions Clinical Impression: Headache, Vertigo Discharge ED Provider: Jono Vaughn General Adult HPI <Jono Vaughn MD - Last Filed: 07/22/23 15:13> General Chief complaint: Dizziness Stated complaint: headache,dizzy,achey Time Seen by Provider: 07/22/23 13:57 Mode of Arrival: Ambulatory Source of Information: Patient Limitations: No Limitations Description of Symptoms (Recalled from ER Triage Doc. by RN): PT REPORTS A NONPRODUCTIVE COUGH FOR A MONTH ALONG WITH A RUNNY NOSE, ALSO REPORTS HEADACHE FOR 3 MONTHS, AND DIZZINESS THAT STARTED THIS AM WHEN HE CHANGED POSITIONS History of Present Illness HPI narrative: 83-year-old male, history as reported below, presents for headache and dizziness. The symptoms have been ongoing and intermittent for the last approximately 2 months. He was most recently seen approximate 4 days ago for similar symptoms and had a negative CT head at that time. He is trying to follow-up with [facility] but has not yet been scheduled for an MRI they will not be able to get him in until August. With regards to his dizziness, he reports that he gets dizzy sometimes when he moves around. He reports he is currently experiencing no vertigo or dizziness. He reports that he is getting therapy for his dizziness. He denies any vision changes. Reports headache is sharp and frontal. He has not taken any medications for it. He recently had his medications changed around for his blood pressure and has been taking them as prescribed. Related Data Home Medications Medication Instructions Recorded Confirmed allopurinol 300 mg tablet 300 mg PO DAILY GOUT 04/04/18 07/22/23 glipizide 10 mg tablet 10 mg PO BID Diabetes 01/25/21 07/22/23 empagliflozin 25 mg tablet 25 mg PO DAILY Diabetes 03/05/21 07/22/23 aspirin 81 mg tablet,delayed 81 mg PO DAILY CIRCULATION 06/17/23 07/22/23 release atorvastatin 40 mg tablet 40 mg PO HS Cholesterol 06/17/23 07/22/23 amitriptyline 50 mg tablet 50 mg PO HS 07/18/23 07/22/23 clonidine HCl 0.1 mg tablet 0.1 mg PO BID 07/18/23 07/22/23 gabapentin 300 mg capsule 300 mg PO TID 07/18/23 07/22/23 liraglutide 0.6 mg/0.1 mL (18 mg/3 See Rx Instructions .Route .COMPLEX 07/18/23 07/22/23 mL) subcutaneous pen injector (Victoza 3-Esdras) amlodipine 10 mg tablet 20 mg PO DAILY 07/22/23 07/22/23 metoprolol succinate 50 mg 50 mg PO DAILY 07/22/23 07/22/23 tablet,extended release 24 hr Previous Rx's Medication Instructions Recorded clopidog
--- NOTE | 2023-07-22 14:17 | PC.NURSE ---
ER AT BEDSIDE
[2023-07-22 14:31] VITALS: BP 169/81; PULSE 55; RESP 18; O2SAT 97
--- NOTE | 2023-07-22 14:33 | CT_ITS ---
PROCEDURE INFORMATION: Exam: CT Head Without Contrast Exam date and time: 07/22/2023 2:42 PM Age: 83 years old Clinical indication: Other: Headache; Additional info: Acute on chronic headache TECHNIQUE: Imaging protocol: Computed tomography of the head without contrast. Radiation optimization: All CT scans at this facility use at least one of these dose optimization techniques: automated exposure control; mA and/or kV adjustment per patient size (includes targeted exams where dose is matched to clinical indication); or iterative reconstruction. REPORTING DATA: Count of CT and Cardiac NM exams in prior 12 months: This patient has received 7 known [address]s and 0 known cardiac nuclear medicine studies in the 12 months prior to the current study. COMPARISON: CT HEAD/BRAIN WO CON 07/18/2023 12:12 PM FINDINGS: Brain: No acute intracranial hemorrhage.. There is moderate diffuse heterogeneity of the white matter attenuation, consistent with chronic white matter ischemic changes. Moderate cerebral atrophy. Well delineated low-attenuation in the right occipital lobe consistent with prior infarction. Cerebral ventricles: No ventriculomegaly. Paranasal sinuses: Sclerosis in the right ethmoid air cells is stable Mastoid air cells: Visualized mastoid air cells are well aerated. Bones/joints: Unremarkable. No acute fracture. Soft tissues: Unremarkable. IMPRESSION: No acute intracranial hemorrhage..
--- NOTE | 2023-07-22 14:40 | PC.NURSE ---
PT TRANSPORTED TO RADIOLOGY VIA WHEELCHAIR
--- NOTE | 2023-07-22 14:45 | PC.NURSE ---
PT RETURNED FROM RADIOLOGY.
[2023-07-22 15:01] VITALS: BP 168/77; PULSE 58; RESP 16; O2SAT 96
[2023-07-22 15:44] VITALS: BP 181/74; PULSE 57; RESP 16; TEMP 36.7; O2SAT 96
== END 2023-07-22 15:45 | disposition home or self-care (01) ==
PROVIDERS: Emergency Provider Emergency Medicine; PCP Nurse Practitioner
DX: R51.9 Headache, unspecified (principal); R42 Dizziness and giddiness; R05.9 Cough, unspecified; E11.9 Type 2 diabetes mellitus without complications; E78.5 Hyperlipidemia, unspecified; I10 Essential (primary) hypertension; E03.9 Hypothyroidism, unspecified
CPT/HCPCS: 70450; 99285

== ENCOUNTER 2023-07-31 08:59 | Emergency (ER) | payer MEDICARE, MEDICAID, SELFPAY ==
[2023-07-31 09:02] VITALS: BP 119/72; PULSE 60; RESP 18; TEMP 36.7; O2SAT 97; BMI 27.0
[2023-07-31 09:30] VITALS: BP 124/71; PULSE 58; RESP 20; O2SAT 96
[2023-07-31 09:51] LABS: POC Glucose,Bedside 85 (70-110)
--- NOTE | 2023-07-31 09:54 | HMH.EDGENADL ---
Discharge Plan Disposition Chief Complaint: Upper Respiratory Infection Prescriptions Prescriptions: No Action atorvastatin 40 mg tablet 40 mg PO HS Qty: 90 3RF hydrochlorothiazide 12.5 mg tablet 12.5 mg PO DAILY Qty: 30 3RF glipizide 10 mg tablet 10 mg PO BID lisinopril 40 mg tablet 40 mg PO DAILY Qty: 90 3RF allopurinol 300 MG tablet 300 mg PO DAILY clopidogrel 75 mg tablet 75 mg PO DAILY Qty: 60 0RF aspirin 81 mg Tablet,Delayed Release (Dr/Ec) 81 mg PO DAILY levothyroxine [Synthroid] 25 mcg Tablet 25 mcg PO DAILYDM Qty: 0 0RF pantoprazole 40 mg Tablet,Delayed Release (Dr/Ec) 40 mg PO HS Qty: 0 0RF clonidine HCl 0.1 mg tablet 0.1 mg PO BID amitriptyline 50 mg tablet 50 mg PO HS gabapentin 300 mg capsule 300 mg PO TID Victoza 3-Esdras 0.6 mg/0.1 mL (18 mg/3 mL) pen injector See Rx Instructions .ROUTE .COMPLEX Rx Instructions: Inject 0.6mg SQ q day x2 weeks, then 1.2mg SQ day metoprolol succinate 50 mg tablet extended release 24 hr 50 mg PO DAILY amlodipine 10 mg tablet 20 mg PO DAILY empagliflozin 25 MG tablet 25 mg PO DAILY Referrals Follow up/Referrals: Roselia Brady APRN [Primary Care Provider] - See instructions Discharge ED Provider: Keith Mendoza I General Adult HPI General Chief complaint: Upper Respiratory Infection Stated complaint: weak headache Time Seen by Provider: 07/31/23 09:10 Mode of Arrival: Ambulatory Source of Information: Patient Limitations: No Limitations Description of Symptoms (Recalled from ER Triage Doc. by RN): PT REPORTS CHILLS THAT STARTED LAST NIGHT, REPORTS HEADACHE AND WEAKNESS THIS AM. DENIES FEVER OR COUGH History of Present Illness HPI narrative: Patient is an 83-year-old male, history of chronic headaches, vertigo, bilateral carotid artery stenosis, hypertension, hypothyroidism who is presenting to the emergency department with mild headache as well as chills over the past 2 days. History was conducted with the patient as well as his son at bedside. Patient reports that he was feeling well up until yesterday when he started to have chills. He has not had any cough, congestion, runny nose, chest pain, shortness of breath or difficulty breathing. Also denies abdominal pain, nausea, vomiting, diarrhea. He does report that he normally has 1-2 bowel movements daily, has not had a bowel movement since yesterday. Patient states that this is slightly abnormal for him but he denies any abdominal discomfort. Reports feeling generally fatigued, worn down. 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 Related Data Home Medications Medication Instructions Recorded Confirmed allopurinol 300 mg tablet 300 mg PO DAILY GOUT 04/04/18 07/24/23 glipizide 10 mg tablet 10 mg PO BID Diabetes 01/25/21 07/24/23 empagliflozin 25 mg tablet 25 mg PO DAILY Diabetes 03/05/21 07/24/23 aspirin 81 mg tablet,delayed 81 mg PO DAILY CIRCULATION 06/17/23 07/24/23 release amitriptyline 50 mg tablet 50 mg PO HS 07/18/23 07/24/23 clonidine HCl 0.1 mg tablet 0.1 mg PO BID 07/18/23 07/24/23 gabapentin 300 mg capsule 300 mg PO TID 07/18/23 07/24/23 liraglutide 0.6 mg/0.1 mL (18 mg/3 See Rx Instructions .Route .COMPLEX 07/18/23 07/24/23 mL) subcutaneous pen injector (Victoza 3-Esdras) amlodipine 10 mg tablet 20 mg PO DAILY 07/22/23 07/24/23 metoprolol succinate 50 mg 50 mg PO DAILY 07/22/23 07/24/23 tablet,extended release 24 hr Previous Rx's Medication Instructions Recorded clopidogrel 75 mg tablet 75 mg PO DAILY #60 tabs 06/14/23 levothyroxine 25 mcg tablet 25 mcg PO DAILYDM #0 tabs 06/17/23 (Synthroid) pantoprazole 40 mg tablet,delayed 40 mg PO HS #0 tabs 06/17/23 release lisinopril 40 mg tablet 40 mg PO DAILY #90 tabs 06/21/23 atorvastatin 40 mg tablet 40 mg PO HS Cholesterol #90 tabs 07/24/23 hydrochlorothiazide 12.5 mg tablet 12.5 mg PO DAILY #3
[2023-07-31 09:56] LABS: Coronavirus 19, PCR Not Detected (NotDetected); Influenza A, PCR Not Detected (NotDetected); Influenza B, PCR Not Detected (NotDetected)
[2023-07-31 10:02] VITALS: BP 132/67; PULSE 57; RESP 18; TEMP 36.7; O2SAT 95
== END 2023-07-31 10:04 | disposition home or self-care (01) ==
PROVIDERS: Emergency Provider Emergency Medicine; PCP Nurse Practitioner
DX: R51.9 Headache, unspecified (principal); R53.1 Weakness; J06.9 Acute upper respiratory infection, unspecified; I10 Essential (primary) hypertension; E03.9 Hypothyroidism, unspecified; I65.23 Occlusion and stenosis of bilateral carotid arteries; E11.9 Type 2 diabetes mellitus without complications; E78.5 Hyperlipidemia, unspecified
CPT/HCPCS: 36415; 80048; 80061; 80076; 82962; 83735; 84436; 84443; 84479; 85007; 85014; 85018; 85048; 85049; 87636; 99285

== ENCOUNTER → 2023-07-31 10:16 | Outpatient (CLI) | payer MEDICARE, MEDICAID, SELFPAY ==
[2023-07-31 10:28] LABS: MANUAL DIFFERENTIAL MANUAL DIFFERENTIAL (MANUAL DIFF)
[2023-07-31 10:51] LABS: Basophils % 0.4 % (0.1-2.0); Eosinophils # 0.1 K/mm3 (0.0-0.4); Eosinophils % 1.8 % (0.1-12.0); Hematocrit 47.6 % (42.0-52.0); Hemoglobin 15.4 g/dL (14.1-18.0); Lymphocytes # 1.7 K/mm3 (0.7-4.5); Lymphocytes % 30.6 % (10-50); Mean Corpuscular HGB Conc 32.5 g/dL (31.8-35.4); Mean Corpuscular Hemoglobin 32.5 pg (27.0-31.2); Mean Corpuscular Volume 99.9 fl (80-94); Mean Platelet Volume 9.6 fl (7.4-10.4); Monocytes # 0.4 K/mm3 (0.1-1.0); Monocytes % 6.2 % (1.7-9.3); Neutrophils # 3.4 K/mm3 (1.8-7.8); Platelet Count 130 K/mm3 (142-424); Red Blood Count 4.76 M/mm3 (4.60-6.20); Red Cell Distribution Width 14.2 % (11.5-17.5); White Blood Count 5.6 K/mm3 (4.8-10.8)
[2023-07-31 12:02] LABS: Chloride 98 mmol/L (98-107)
[2023-07-31 12:03] LABS: Potassium 4.1 mmoL/L (3.5-5.1); Sodium 135 mmol/L (136-145)
[2023-07-31 12:05] LABS: Alanine Aminotransferase 35 U/L (12-78); Anion Gap 9.1 mEq/L (5-15); Aspartate Amino Transferase 36 U/L (17-59); Bilirubin,Unconjugated 0.5 mg/dL (0.0-1.1); Blood Urea Nitrogen 19 mg/dl (9-20); Carbon Dioxide 32 mmol/L (22.0-30.0); Cholesterol 78 mg/dl (140-200); Estimated Glomerular Filt Rate 41 ml/min (>60); GFR (African American) 50 ML/MIN (>60); Triglycerides 86 mg/dl (30-150); VLDL Cholesterol 17 mg/dL (0-40)
[2023-07-31 12:06] LABS: Albumin Level 4.3 g/dl (3.5-5.0); Alkaline Phosphatase 73 U/L (38-126); Bilirubin,Direct 0.3 mg/dl (0.0-0.4); Bilirubin,Indirect 0.6 mg/dL (0.0-0.9); Bilirubin,Total 0.9 mg/dl (0.2-1.3); Calcium 9.2 mg/dl (8.4-10.2); Chol/HDL Ratio 2.1 (1-3.5); Glucose 71 mg/dl (74-100); HDL Cholesterol 37 mg/dl (40-60); Magnesium 2.2 mg/dl (1.6-2.3); Total Protein,Serum 6.6 g/dl (6.3-8.2)
[2023-07-31 12:17] LABS: Direct LDL Cholesterol 37.47 mg/dL (100-129)
[2023-07-31 12:18] LABS: Triiodothryronine (T3) Uptake 34 % (23.5-40.5)
[2023-07-31 12:19] LABS: Free Thyroxine Index 2.9 ug/dL (5.93-13.13); T4 (Thyroxine) 8.4 ug/dl (5.53-11.0)
[2023-07-31 12:25] LABS: Eosinophils % 3 % (0-3); Lymphocytes % 29 % (10-50); Monocytes % 11 % (2-9); Neutrophils % 57 % (42-76); Platelet Estimate Slight Decrease; RBC Morphology Normal; Total Cells Counted 100
[2023-07-31 12:33] LABS: Thyroid Stimulating Hormone 1.96 uIU/mL (0.465-4.68)
== END ==
PROVIDERS: PCP Nurse Practitioner; Visit Provider Nurse Practitioner Family
DX: I10 Essential (primary) hypertension (principal)
CPT/HCPCS: 36415; 80048; 80061; 80076; 83735; 84436; 84443; 84479; 85007; 85014; 85018; 85048; 85049

== ENCOUNTER 2023-08-02 23:44 | Emergency (ER) | payer MEDICARE, MEDICAID, SELFPAY ==
[2023-08-02 23:45] VITALS: BP 175/72; PULSE 67; RESP 16; TEMP 36.5; O2SAT 96; BMI 27.0
--- NOTE | 2023-08-02 23:54 | PC.NURSE ---
in room talking with patient at this time.
[2023-08-03] VITALS: BP 152/79; PULSE 58; O2SAT 97
--- NOTE | 2023-08-03 00:02 | HMH.EDGENADL ---
Discharge Plan Disposition Patient Disposition: Home, Self-Care Condition: Good Prescriptions Prescriptions: New ondansetron HCl 4 mg tablet 4 mg PO Q8H PRN (Reason: nausea and vomiting) 5 Days Qty: 30 0RF No Action atorvastatin 40 mg tablet 40 mg PO HS Qty: 90 3RF hydrochlorothiazide 12.5 mg tablet 12.5 mg PO DAILY Qty: 30 3RF glipizide 10 mg tablet 10 mg PO BID lisinopril 40 mg tablet 40 mg PO DAILY Qty: 90 3RF allopurinol 300 MG tablet 300 mg PO DAILY clopidogrel 75 mg tablet 75 mg PO DAILY Qty: 60 0RF aspirin 81 mg Tablet,Delayed Release (Dr/Ec) 81 mg PO DAILY levothyroxine [Synthroid] 25 mcg Tablet 25 mcg PO DAILYDM Qty: 0 0RF pantoprazole 40 mg Tablet,Delayed Release (Dr/Ec) 40 mg PO HS Qty: 0 0RF clonidine HCl 0.1 mg tablet 0.1 mg PO BID amitriptyline 50 mg tablet 50 mg PO HS gabapentin 300 mg capsule 300 mg PO TID Victoza 3-Esdras 0.6 mg/0.1 mL (18 mg/3 mL) pen injector See Rx Instructions .ROUTE .COMPLEX Rx Instructions: Inject 0.6mg SQ q day x2 weeks, then 1.2mg SQ day metoprolol succinate 50 mg tablet extended release 24 hr 50 mg PO DAILY amlodipine 10 mg tablet 20 mg PO DAILY empagliflozin 25 MG tablet 25 mg PO DAILY Referrals Follow up/Referrals: Roselia Brady APRN [Primary Care Provider] - See instructions Activity Restrictions/Add. Instructions Additional Instructions/Restrictions: Please follow-up with your primary care provider. Please return to the emergency department if you develop any new or worsening symptoms or become concerned for your health. Clinical Impressions Clinical Impression: Nausea, Aches Discharge ED Provider: Jono Vaughn Adult HPI General Chief complaint: Weakness Stated complaint: weakness,no appitite,body aches Time Seen by Provider: 08/02/23 23:50 Mode of Arrival: Ambulatory Source of Information: Patient Limitations: No Limitations Description of Symptoms (Recalled from ER Triage Doc. by RN): Presents to ED with c/o body ahces, weakness, nausea, and headache that started a few days ago. Denies abd pain. 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 Patient states he has not had much of an appetite History of Present Illness HPI narrative: 83-year-old male history as reported below presents with multiple complaints. He reports that he has been feeling achy and a little nauseous for the last couple of days. Reports that he has been able to drink but has not been eating as much food. Reports intermittent headache, nothing new. Reports decreased appetite. Patient reports that he was told by his product safety tester recently that he was dehydrated and needed to drink more fluids. Given he has not been feeling as well, he is concerned he could be dehydrated again. Related Data Home Medications Medication Instructions Recorded Confirmed allopurinol 300 mg tablet 300 mg PO DAILY GOUT 04/04/18 07/24/23 glipizide 10 mg tablet 10 mg PO BID Diabetes 01/25/21 07/24/23 empagliflozin 25 mg tablet 25 mg PO DAILY Diabetes 03/05/21 07/24/23 aspirin 81 mg tablet,delayed 81 mg PO DAILY CIRCULATION 06/17/23 07/24/23 release amitriptyline 50 mg tablet 50 mg PO HS 07/18/23 07/24/23 clonidine HCl 0.1 mg tablet 0.1 mg PO BID 07/18/23 07/24/23 gabapentin 300 mg capsule 300 mg PO TID 07/18/23 07/24/23 liraglutide 0.6 mg/0.1 mL (18 mg/3 See Rx Instructions .Route .COMPLEX 07/18/23 07/24/23 mL) subcutaneous pen injector (Victoza 3-Esdras) amlodipine 10 mg tablet 20 mg PO DAILY 07/22/23 07/24/23 metoprolol succinate 50 mg 50 mg PO DAILY 07/22/23 07/24/23 tablet,extended release 24 hr Previous Rx's Medication Instructions Recorded clopidogrel 75 mg tablet 75 mg PO DAILY #60 tabs 06/14/23 levothyroxine 25 mcg tablet 25 mcg PO DAILYDM #0 tabs 06/17/23 (Synthroid) pantoprazole 40 mg tablet,delayed 40 mg PO HS #0 tabs 06/17/23 release lisinopril 40 mg tablet 40 mg PO DAILY
[2023-08-03 00:24] LABS: Coronavirus 19, PCR Not Detected (NotDetected); Influenza A, PCR Not Detected (NotDetected); Influenza B, PCR Not Detected (NotDetected)
[2023-08-03 00:25] LABS: Basophils % 0.5 % (0.1-2.0); Eosinophils # 0.1 K/mm3 (0.0-0.4); Eosinophils % 2.3 % (0.1-12.0); Hematocrit 48.2 % (42.0-52.0); Hemoglobin 15.5 g/dL (14.1-18.0); Lymphocytes # 1.3 K/mm3 (0.7-4.5); Lymphocytes % 26.4 % (10-50); Mean Corpuscular HGB Conc 32.2 g/dL (31.8-35.4); Mean Corpuscular Volume 99.5 fl (80-94); Mean Platelet Volume 9.4 fl (7.4-10.4); Monocytes # 0.3 K/mm3 (0.1-1.0); Monocytes % 6.2 % (1.7-9.3); Neutrophils # 3.3 K/mm3 (1.8-7.8); Neutrophils % 64.7 % (37.0-80.0); Platelet Count 118 K/mm3 (142-424); Red Blood Count 4.85 M/mm3 (4.60-6.20); Red Cell Distribution Width 14.1 % (11.5-17.5); White Blood Count 5.1 K/mm3 (4.8-10.8)
[2023-08-03 00:32] LABS: Alanine Aminotransferase 31 U/L (12-78); Alkaline Phosphatase 70 U/L (38-126); Aspartate Amino Transferase 32 U/L (17-59); Bilirubin,Total 0.9 mg/dl (0.2-1.3); Blood Urea Nitrogen 16 mg/dl (9-20); Carbon Dioxide 31 mmol/L (22.0-30.0); Chloride 97 mmol/L (98-107); Creatinine Clearance Estimated 44 mL/min (50-200); Estimated Glomerular Filt Rate 48 ml/min (>60); GFR (African American) 58 ML/MIN (>60)
[2023-08-03 00:33] LABS: Albumin Level 4.3 g/dl (3.5-5.0); Albumin/Globulin Ratio 1.7 (1.1-1.8); Anion Gap 8.2 mEq/L (5-15); Globulin 2.5 g/dL (1.3-3.2); Glucose 98 mg/dl (74-100); Potassium 4.2 mmoL/L (3.5-5.1); Sodium 132 mmol/L (136-145); Total Protein,Serum 6.8 g/dl (6.3-8.2)
[2023-08-03 00:45] VITALS: BP 149/71; PULSE 59; O2SAT 94
[2023-08-03 00:56] VITALS: BP 149/71; PULSE 59; RESP 16; TEMP 36.5; O2SAT 97
== END 2023-08-03 01:01 | disposition home or self-care (01) ==
PROVIDERS: Emergency Provider Emergency Medicine; PCP Nurse Practitioner
DX: R11.0 Nausea (principal); R53.1 Weakness; R51.9 Headache, unspecified; E11.9 Type 2 diabetes mellitus without complications; E78.5 Hyperlipidemia, unspecified; I10 Essential (primary) hypertension; E03.9 Hypothyroidism, unspecified
CPT/HCPCS: 80053; 85025; 87636; 99284

== ENCOUNTER → 2023-08-07 09:40 | Outpatient (CLI) | payer MEDICARE, MEDICAID, SELFPAY ==
[2023-08-07 10:56] LABS: Anion Gap 8.3 mEq/L (5-15); Blood Urea Nitrogen 19 mg/dl (9-20); Calcium 8.9 mg/dl (8.4-10.2); Carbon Dioxide 32 mmol/L (22.0-30.0); Chloride 100 mmol/L (98-107); Estimated Glomerular Filt Rate 44 ml/min (>60); GFR (African American) 54 ML/MIN (>60); Glucose 94 mg/dl (74-100); Potassium 4.3 mmoL/L (3.5-5.1); Sodium 136 mmol/L (136-145)
== END ==
PROVIDERS: PCP Nurse Practitioner; Visit Provider Physician Assistant
DX: R79.89 Other specified abnormal findings of blood chemistry (principal)
CPT/HCPCS: 36415; 80048

== ENCOUNTER 2023-08-08 01:06 | Emergency (ER) | payer MEDICARE, MEDICAID, SELFPAY ==
[2023-08-08 01:08] VITALS: BP 165/69; PULSE 65; RESP 18; TEMP 36.9; O2SAT 94; BMI 25.8
--- NOTE | 2023-08-08 01:20 | HMH.EDGENADL ---
Discharge Plan Disposition Patient Disposition: Home, Self-Care Prescriptions Prescriptions: New polyethylene glycol 3350 [Miralax] 17 gram/dose powder 17 g PO .q4 PRN (Reason: constipation) Qty: 850 0RF No Action atorvastatin 40 mg tablet 40 mg PO HS Qty: 90 3RF hydrochlorothiazide 12.5 mg tablet 12.5 mg PO DAILY Qty: 30 3RF glipizide 10 mg tablet 10 mg PO BID lisinopril 40 mg tablet 40 mg PO DAILY Qty: 90 3RF allopurinol 300 MG tablet 300 mg PO DAILY clopidogrel 75 mg tablet 75 mg PO DAILY Qty: 60 0RF aspirin 81 mg Tablet,Delayed Release (Dr/Ec) 81 mg PO DAILY levothyroxine [Synthroid] 25 mcg Tablet 25 mcg PO DAILYDM Qty: 0 0RF pantoprazole 40 mg Tablet,Delayed Release (Dr/Ec) 40 mg PO HS Qty: 0 0RF clonidine HCl 0.1 mg tablet 0.1 mg PO BID amitriptyline 50 mg tablet 50 mg PO HS gabapentin 300 mg capsule 300 mg PO TID Victoza 3-Esdras 0.6 mg/0.1 mL (18 mg/3 mL) pen injector See Rx Instructions .ROUTE .COMPLEX Rx Instructions: Inject 0.6mg SQ q day x2 weeks, then 1.2mg SQ day metoprolol succinate 50 mg tablet extended release 24 hr 50 mg PO DAILY amlodipine 10 mg tablet 20 mg PO DAILY empagliflozin 25 MG tablet 25 mg PO DAILY ondansetron HCl 4 mg tablet 4 mg PO Q8H PRN (Reason: nausea and vomiting) 5 Days Qty: 30 0RF Referrals Follow up/Referrals: Roselia Brady APRN [Primary Care Provider] - See instructions Activity Restrictions/Add. Instructions Additional Instructions/Restrictions: Recommend taking large volumes of MiraLAX with goal of having daily soft stools. Follow bowel cleanout sheet. Please follow-up with your primary care provider. Please return to the emergency department if you develop any new or worsening symptoms or become concerned for your health. Clinical Impressions Clinical Impression: Acute constipation Instructions Patient Instructions: DI for Diarrhea and Traveler's Diarrhea -- Adult, DI for Diarrhea and Traveler's Diarrhea -- Child, DI for Nausea -- Adult, DI for Nausea -- Child Discharge ED Provider: Jono Vaughn General Adult HPI General Chief complaint: Nausea/Vomiting/Diarrhea Stated complaint: 3-4 days bowels have not moved Time Seen by Provider: 08/08/23 01:20 History of Present Illness HPI narrative: 83-year-old male, history as reported below presents with constipation. He reports that he normally has bowel movement every day. Reports not had a bowel movement was last couple of days, maybe 3-4. He reports this is abnormal for him. He reports mild nonspecific abdominal pain. Denies any nausea or vomiting. Related Data Home Medications Medication Instructions Recorded Confirmed allopurinol 300 mg tablet 300 mg PO DAILY GOUT 04/04/18 07/24/23 glipizide 10 mg tablet 10 mg PO BID Diabetes 01/25/21 07/24/23 empagliflozin 25 mg tablet 25 mg PO DAILY Diabetes 03/05/21 07/24/23 aspirin 81 mg tablet,delayed 81 mg PO DAILY CIRCULATION 06/17/23 07/24/23 release amitriptyline 50 mg tablet 50 mg PO HS 07/18/23 07/24/23 clonidine HCl 0.1 mg tablet 0.1 mg PO BID 07/18/23 07/24/23 gabapentin 300 mg capsule 300 mg PO TID 07/18/23 07/24/23 liraglutide 0.6 mg/0.1 mL (18 mg/3 See Rx Instructions .Route .COMPLEX 07/18/23 07/24/23 mL) subcutaneous pen injector (Victoza 3-Esdras) amlodipine 10 mg tablet 20 mg PO DAILY 07/22/23 07/24/23 metoprolol succinate 50 mg 50 mg PO DAILY 07/22/23 07/24/23 tablet,extended release 24 hr Previous Rx's Medication Instructions Recorded clopidogrel 75 mg tablet 75 mg PO DAILY #60 tabs 06/14/23 levothyroxine 25 mcg tablet 25 mcg PO DAILYDM #0 tabs 06/17/23 (Synthroid) pantoprazole 40 mg tablet,delayed 40 mg PO HS #0 tabs 06/17/23 release lisinopril 40 mg tablet 40 mg PO DAILY #90 tabs 06/21/23 atorvastatin 40 mg tablet 40 mg PO HS Cholesterol #90 tabs 07/24/23 hydrochlorothiazide 12.5 mg tablet 12.5 mg PO ITALO
--- NOTE | 2023-08-08 01:24 | XR_ITS ---
PROCEDURE INFORMATION: Exam: XR Abdomen Exam date and time: 08/08/2023 1:27 AM Age: 83 years old Clinical indication: Constipation TECHNIQUE: Imaging protocol: Radiologic exam of the abdomen. Views: Frontal supine view of the abdomen. 1 View. Total images: 2 COMPARISON: CT CHEST WO CON 03/29/2021 2:23 PM FINDINGS: Lungs: Lung bases are clear. Calcified right basilar granuloma. Gastrointestinal tract: Nonspecific, nonobstructive bowel gas distribution. Mild to moderate colonic stool burden. No fecal impaction within the rectum. No dilated small bowel segments. Organs: Suspect bilateral nephrolithiasis. No organomegaly. Vasculature: Pelvic calcifications resembling phleboliths. Bones/joints: Mild lumbar dextrocurvature. Moderate degenerative changes thoracolumbar spine. Mild degenerative changes bilateral hips and SI joints. Soft tissues: Peritoneal fascial planes are maintained. IMPRESSION: 1. Nonspecific, nonobstructed bowel gas distribution. 2. Mild to moderate colonic stool burden. 3. Suspect bilateral nephrolithiasis. 4. Additional chronic findings.
--- NOTE | 2023-08-08 02:07 | PC.NURSE ---
moderate stool in bathroom following enema
[2023-08-08 02:09] VITALS: BP 124/70; PULSE 74; RESP 16; TEMP 36.8; O2SAT 98
== END 2023-08-08 02:14 | disposition home or self-care (01) ==
PROVIDERS: Emergency Provider Emergency Medicine; PCP Nurse Practitioner
DX: K59.00 Constipation, unspecified (principal); R10.9 Unspecified abdominal pain; I65.23 Occlusion and stenosis of bilateral carotid arteries; E11.9 Type 2 diabetes mellitus without complications; E78.5 Hyperlipidemia, unspecified; I10 Essential (primary) hypertension; E03.9 Hypothyroidism, unspecified
CPT/HCPCS: 74018; 99283

== ENCOUNTER 2024-05-01 09:11 | Outpatient (CLI) | payer MEDICARE, MEDICAID, SELFPAY ==
[2024-05-01 09:33] LABS: Basophils # 0.1 K/mm3 (0-0.2); Basophils % 0.8 % (0.1-2.0); Eosinophils # 0.2 K/mm3 (0.0-0.4); Eosinophils % 2.8 % (0.1-12.0); Hematocrit 50.2 % (42.0-52.0); Hemoglobin 15.7 g/dL (14.1-18.0); Lymphocytes # 1.4 K/mm3 (0.7-4.5); Lymphocytes % 21.8 % (10-50); Mean Corpuscular HGB Conc 31.2 g/dL (31.8-35.4); Mean Corpuscular Hemoglobin 31.9 pg (27.0-31.2); Mean Corpuscular Volume 102.1 fl (80-94); Mean Platelet Volume 9.1 fl (7.4-10.4); Monocytes # 0.6 K/mm3 (0.1-1.0); Neutrophils # 4.3 K/mm3 (1.8-7.8); Neutrophils % 65.6 % (37.0-80.0); Platelet Count 176 K/mm3 (142-424); Red Blood Count 4.91 M/mm3 (4.60-6.20); Red Cell Distribution Width 14.2 % (11.5-17.5); White Blood Count 6.5 K/mm3 (4.8-10.8)
[2024-05-01 10:00] LABS: Albumin Level 4.1 g/dl (3.5-5.0); Chloride 104 mmol/L (98-107)
[2024-05-01 10:01] LABS: Sodium 137 mmol/L (136-145)
[2024-05-01 10:03] LABS: Alanine Aminotransferase 37 U/L (12-78); Alkaline Phosphatase 59 U/L (38-126); Aspartate Amino Transferase 32 U/L (17-59); Bilirubin,Direct 0.2 mg/dl (0.0-0.4); Bilirubin,Indirect 0.6 mg/dL (0.0-0.9); Bilirubin,Total 0.8 mg/dl (0.2-1.3); Bilirubin,Unconjugated 0.6 mg/dL (0.0-1.1); Blood Urea Nitrogen 16 mg/dl (9-20); Carbon Dioxide 29 mmol/L (22.0-30.0); Estimated Glomerular Filt Rate 48 ml/min (>60); GFR (African American) 58 ML/MIN (>60)
[2024-05-01 10:04] LABS: Calcium 9.3 mg/dl (8.4-10.2); Chol/HDL Ratio 2.2 (1-3.5); Cholesterol 110 mg/dl (140-200); Glucose 88 mg/dl (74-100); HDL Cholesterol 51 mg/dl (40-60); Total Protein,Serum 6.4 g/dl (6.3-8.2); Triglycerides 89 mg/dl (30-150); VLDL Cholesterol 18 mg/dL (0-40)
[2024-05-01 10:21] LABS: Triiodothryronine (T3) Uptake 34 % (23.5-40.5)
[2024-05-01 10:22] LABS: Free Thyroxine Index 2.6 ug/dL (5.93-13.13); T4 (Thyroxine) 7.5 ug/dl (5.53-11.0)
[2024-05-01 10:24] LABS: Direct LDL Cholesterol 38.35 mg/dL (100-129)
[2024-05-01 10:35] LABS: Thyroid Stimulating Hormone 3.11 uIU/mL (0.465-4.68)
== END 2024-05-01 23:59 | disposition home or self-care (01) ==
LOC: LAB 09:14
PROVIDERS: PCP Nurse Practitioner; Visit Provider Nurse Practitioner Family
DX: R53.83 Other fatigue (principal); I10 Essential (primary) hypertension; E78.2 Mixed hyperlipidemia; E03.9 Hypothyroidism, unspecified
CPT/HCPCS: 36415; 80048; 80061; 80076; 84436; 84439; 84443; 84479; 85025

== ENCOUNTER 2024-11-15 07:43 | Outpatient (CLI) | payer MEDICARE, MEDICAID, SELFPAY ==
--- NOTE | 2024-11-15 07:47 | CA_ITS ---
APPROVED REPORT EXAM: Comprehensive 2D, Doppler, and color-flow Echocardiogram Shift Manager: Brittani Harris RDCS Ht: 5 ft 8 in Wt: 182lbs BSA: 1.96 BP: 142/78 mmHg Indications: WARREN,ABN EKG,HTN,SOA M-Mode Dimensions RVDd 2.63 cm (0.9-2.6) LA Diam 3.62 cm (1.9-4.0) LVDd 4.63 cm (3.5-5.7) LVDs 3.14 cm (3.5-5.7) IVSd 1.10 cm (0.6-1.1) PWd 1.19 cm (0.6-1.1) EF (Teich) 60.40% FS 32.20% EDV (Teich) 98.80 mL ESV (Teich) 39.10 mL LV Diastology E Decel Time 417 (160-240 msec) E/A Ratio 0.6 Mitral Valve MV E Max Hany. 60.0 (40-130 cm/s) MV A Velocity 98.0 (40-130 cm/s) E/A Ratio 0.61 MV PHT 122.0 ms Left Ventricle The left ventricle is normal size. The left ventricular systolic function is normal. The left ventricular ejection fraction is within the normal range. There is increased overall thickness. There is normal LV segmental wall motion. Diastolic function is indeterminate. LVEF is 60%. Right Ventricle The right ventricle is mildly dilated. The right ventricular systolic function is normal. Atria Left atrium is mildly dilated. Right atrium is mildly dilated. There is no Doppler evidence of interatrial shunt. Aortic Valve The aortic valve is mildly thickened. There is no aortic valvular stenosis. Mild aortic regurgitation. Mitral Valve The mitral valve is normal in structure. No evidence of mitral valve stenosis. Trace mitral regurgitation. Tricuspid Valve Tricuspid valve is grossly normal in structure and function. Trace tricuspid regurgitation. There is insufficient TR jet to estimate RVSP. Pulmonic Valve The pulmonary valve is normal in structure. Trace pulmonic regurgitation. Great Vessels The aortic root is normal in size. IVC is normal in size and collapses >50% with inspiration. Pericardium There is no pericardial effusion. Other Information Study Quality: Fair Conclusion Normal biventricular systolic function. Mild RV dilation. Mild biatrial dilation. Mild AI. Electronically signed by : Elyse Gauthier MD 11/26/2024 12:29:40
== END 2024-11-15 23:59 | disposition home or self-care (01) ==
LOC: RT 07:44
PROVIDERS: PCP Nurse Practitioner; Visit Provider Nurse Practitioner Family
DX: I51.7 Cardiomegaly (principal); I35.1 Nonrheumatic aortic (valve) insufficiency; R53.83 Other fatigue; R42 Dizziness and giddiness
CPT/HCPCS: 93306

== ENCOUNTER 2025-07-12 09:19 | Emergency (ER) | payer MEDICARE, MEDICAID, SELFPAY ==
[2025-07-12 09:22] VITALS: BP 166/81; PULSE 67; RESP 16; TEMP 36.6; O2SAT 97; BMI 25.0
--- OUTSIDE RECORDS SUMMARY | 2025-07-12 09:28 | XMS_ITS | Encounter Summary ---
Author Organization Healthcare Address [address] [place] [address] Care Team Providers Care Cat Driver Name Role Phone Jackelyn Thomposn APRN Primary Care Provider [phone] Encounter Details Date Type Department Care Team (Late st Contact Info) Description 06/04/2018 Orders Only External Location [address] [place] [address] Provider, External Social History Tobacco Use Types Packs/Day Years Used Date Smoking Tobacco: Never Assessed Sex and Gender Information Value Date Recorded Sex Assigned at Not on file Legal Sex Male 7:18 PM EDT Gender Identity Not on file Sexual Orientation Not on file documented as of this encounter Plan of Treatment Not on file documented as of this encounter Procedures Procedure Name Priority Date/Time Associated Diagnosis Comments US OUTSIDE IMAGES 06/04/2018 12:45 PM EDT documented in this encounter Results * US OUTSIDE IMAGES (06/04/2018 12:45 PM EDT) Anatomical Region Laterality Modality Ultrasound 06/04/2018 12:4 5 PM EDT us External Provider IMG US PROCEDURES Final Result documented in this encounter Visit Diagnoses Not on filedocumented in this encounter Care Teams Cat Driver Relationship Specialty Start Date End Date Jackelyn Thompson APRN [address] [place] [address] PCP - General 01/01/21 documented as of this encounter
--- OUTSIDE RECORDS SUMMARY | 2025-07-12 09:28 | XMS_ITS | Clinical Summary ---
[facility] Organization [facility] Address [address] [place] [address] Care Team Providers Care Director Of Industrial Relations Name Role Phone Roselia Brady Primary Care Provider [phone] Allergies No known active allergies Medications levothyroxine (SYNTHROID, LEVOTHROID) 25 MCG tablet Take 1 tablet every day by oral route. Active lisinopril (PRINIVIL,ZESTR IL) 40 MG tablet Active pantoprazole (Protonix) 40 MG EC tablet Active allopurinol (ZYLOPRIM) 300 MG tablet Take 1 tablet by mouth Daily. Active glipizide (GLUCOTROL) 10 MG tablet Take 1 tablet twice a day by oral route. Active aspirin 81 MG EC tablet Take 1 tablet by mouth Daily. Active empagliflozin (JARDIANCE) 25 MG tablet tablet Take by mouth Daily. Active metoprolol succinate XL (TOPROL-XL) 50 MG 24 hr tablet Take 2 tablets every day by oral route. Active atorvastatin (LIPITOR) 40 MG tabletIndicatio ns:Carotid stenosis, asymptomatic, bilateral Take 2 tablets by mouth Daily. 90 tablet 3 08/22/2023 Active cloNIDine (CATAPRES) 0.1 MG tablet 07/18/2023 Active gabapentin (NEURONTIN) 300 MG capsule 08/10/2023 Active hydroCHLOROthia zide (HYDRODIURIL) 12.5 MG tablet Activ e Victoza 18 MG/3ML solution pen-injector injection inject 0.6mg SQ q day x2 weeks, then 1.2mg SQ q day Active ondansetron (ZOFRAN) 4 MG tablet Active amitriptyline (ELAVIL) 50 MG tablet Take 1 tablet by mouth Every Night. Active omeprazole (priLOSEC) 40 MG capsule Take 1 capsule by mouth Daily. Active amLODIPine (NORVASC) 10 MG tablet Take 1 tablet by mouth Daily. Active Ozempic, 0.25 or 0.5 MG/DOSE, 2 MG/3ML solution pen-injector inject 0.25 MG under the skin ONCE WEEKLY Active clopidogrel (PLAVIX) 75 MG tabletIndicatio ns:Carotid stenosis, asymptomatic, bilateral Take 1 tablet by mouth Daily. 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 Family History Medical History Relation Name Comments Migraines Mother Relation Name Status Comments Mother Social History Tobacco Use Types Packs/Day Years Used Date Smoking Tobacco: Former Cigarettes Q uit: 1958 Passive Smoke Exposure: Past Smokeless Tobacco: Current Chew Tobacco Cessation:Ready to Q uit: No; Counseling Given: No Alcohol Use Standard Drinks/Week Comments Not Currently 0 (1 standard drink = 0.6 oz pur e alcohol) occ PHQ-2 Answer Date Recorded Retired PHQ-9: Brief Depression Severity Measure Score 0 03/25/2024 Sex and Gender Information Value Date Recorded Sex Assigned at Not on file Legal Sex Male 11:36 AM EDT Gender Identity Not on file Sexual Orientation Not on file Last Filed Vital Signs Vital Sign Reading Time Taken Comments Blood Pressure 124/70 09/25/2024 9:31 AM EST Pulse 80 09/25/2024 9:31 AM EST Temperature 36.7 C (98.1 F) 09/25/2024 9:31 AM EST Respiratory Rate 20 09/25/2024 9:31 AM EST Oxygen Saturation 96% 09/25/2024 9:31 AM EST Inhaled Oxygen Concentration - - Weight 83.5 kg (184 lb) 09/25/2024 9:31 AM EST Height 172.7 cm (5' 7.99 ) 09/25/2024 9:31 AM ES T Body Mass Index 27.98 09/25/2024 9:31 AM EST Plan of Treatment Health Maintenance Due Date Last Done Comments DIABETIC EYE EXAM 02/16/1950 DIABETIC FOOT EXAM 02/16/1950 URINE MICROALBUMIN-CREATININ E RATIO (uACR) 02/16/1950 TDAP/TD VACCINES (1 - Tdap) 1957 ZOSTER VACCINE (1 of 2) 02/16/1988 RSV Vaccine - Adults (1 - 1- dose 75+ series) 2013 Pneumococcal Vaccine 50+ (2 of 2 - PPSV23, PCV20, or PCV21) 04/21/2020 02/25/2020 ANNUAL WELLNESS VISIT 06/27/2023 HEMOGLOBIN A1C 12/26/2023 06/27/2023, 06/20/2023 INFLUENZA VACCINE 03/21/2025 06/12/2024, , 05/23/2023, Additional history exists COVID-19 Vaccine (8 - Modern a risk season) 2025 06/18/2024, 06/30/2023, 06/28/2022, Additional history exists Procedures Procedure Name Priority Date/Time Associated Diagnosis Comments HEMOGLOBIN A1C Routine 06/27/2023 12:51 PM EST Type 2 diabetes mellitus with hypoglycemia without coma, without long-term current use of insulin from Last 3 Months or Most Recently Relevant to Health Maintenance Results * (ABNORMAL) Hemoglobin A1c (06/27/2023 12:51 PM EST) Hemoglobin A1C 7.50(H) 4.80 - 5.60 % [facility] Comment: Hemoglobin A1C Ranges: Increased Risk for Diabetes 5.7% to 6.4% Diabetes >= 6.5% Diabetic Goal < 7.0% Blood 06/27/2023 12:5 1 PM EST 06/27/2023 Comment:Blood Release to [facility] lalito Coello [facility] (AMBULATORY) - 06/28/2023 6:11 AM EST Performed at: [address] [place] [address] [id number] Code Enforcement Inspector: Carlin Otero MD, Phone: [phone] us Kacie Sanz MD LAB BLOOD ORDERABLES Final Result [facility] (AMBULATORY) [address] [place] [address], [facility] [address] [place] [address], from Last 3 Months or Most Recently Relevant to Health Maintenance Insurance MEDICAID [place] [employer] PPO Care Teams Director Of Industrial Relations Relationship Specialty Start Date End Date Roselia [place] [place] [address] PCP - General Nurse Practitioner 06/15/23
--- OUTSIDE RECORDS SUMMARY | 2025-07-12 09:28 | XMS_ITS | Encounter Summary ---
Author Organization Healthcare Address [address] [place] [address] Care Team Providers Care Pipeline Dispatch Operator Name Role Phone Jackelyn Thompson APRN Primary Care Provider [phone] Encounter Details Date Type Department Care Team (Late st Contact Info) Description 01/19/2016 Orders Only External Location [address] [place] [address] Provider, External Social History Tobacco Use Types [...] Procedure Name Priority Date/Time Associated Diagnosis Comments MR LUMBAR SPINE WO IV CONTRAST 01/19/2016 8:46 AM EDT documented in this encounter Results * MR Lumbar Spine wo IV Contrast (01/19/2016 8:46 AM EDT) Anatomical Region Laterality Modality L-spine Magnetic Resonan ce 01/19/2016 8:46 AM EDT us External Provider IMG MRI PROCEDURES Final Resul t documented in this encounter Visit Diagnoses Not on filedocumented in this encounter Care Teams Pipeline Dispatch Operator Relationship Specialty Start Date End Date Jackelyn Thompson APRN [address] [place] [address] PCP - General 01/01/21 documented as of this encounter
--- OUTSIDE RECORDS SUMMARY | 2025-07-12 09:28 | XMS_ITS | Continuity of Care Document ---
Author Organization [place] - [employer], [employer] [facility]) [facility] Address [address] [place] [id number] Assessment No assessment recorded. Plan of Treatment Reminders Order Date Submit Date Provider Last Modified By Organization Details Last Modified Time Details Appointments FOLLOW UP 15 2025 10:30A M Lee Brady APRN Not available Not available Not available Lab lipid panel, serum 2024 025 [facility] ([place]), [facility] [place], [address], 05/30/2025 08:11:58 CBC w/ auto diff 2024 025 [facility] [place], [address], 05/30/2025 08:11:57 CMP, serum or plasma 2024 025 [facility] [place], [address], 05/30/2025 08:11:57 TSH, ultra-sen sitive, serum 2024 025 [facility] ([place]), [facility] [place], [address], 05/30/2025 08:11:58 vitamin D, 25-hydrox y, total, serum 2024 025 [facility] [place], [address], 05/30/2025 08:11:59 PSA, total, serum or plasma 2024 025 [facility] ([place]), [address] [place], [address], 05/30/2025 08:11:59 iron + TIBC + ferritin, serum 2024 025 [facility] ([place]), [address] [place], [address], 05/30/2025 08:11:56 cobalamin and folate panel, serum 2024 025 [facility] ([place]), [address] [place], [address], 05/30/2025 08:11:58 Referral None recorded. Procedures None recorded. Surgeries None recorded. Imaging None recorded. Medication Orders None recorded. Patient TargetsNo targets recorded. Patient InstructionsNo instructions recorded. Reason for Referral None Reported. Results Created Date Observation Date Name Description Value Unit Range Abnormal Flag Note LastModifiedBy Organization Detail LastModifiedTime 05/29/2005/30/2025 FE+TI BC+FE R iron bind.cap.(TI BC) 254 ug/dL 250-45 0 normal Not Available [facility] ([facility]) [address] [place], [address], 05/30/2025 08:11:56 05/29/20 25 05/30/2025 FE+TI BC+FE R UIBC 114 ug/dL 111-34 3 normal Not Available [facility] ([facility]) [address] [place], [address], 05/30/2025 08:11:56 05/29/20 25 05/30/2025 FE+TI BC+FE R iron 140 ug/dL 38-169 normal Not Available [facility] ([facility]) [address] [place], [address], 05/30/2025 08:11:56 05/29/20 25 05/30/2025 FE+TI BC+FE R iron saturation 55 % 15-55 normal Not Available [facility] ([facility]) [address] [place], [address], 05/30/2025 08:11:56 05/29/2005/30/2025 FE+TI BC+FE R ferritin 536 NG/mL 30-400 above high normal Not Available [facility] ([facility]) [address] [facility], [place], [address], 05/30/2025 08:11:56 05/29/20 25 05/30/2025 CBC WITH DIFFE RENTI AL/PL ATELE T WBC 7.0 x10e3 /uL 3.4-10 .8 normal Not Available [facility] ([facility]) [address] [facility], [place], [address], 05/30/2025 08:11:56 05/29/2005/30/2025 CBC WITH DIFFE RENTI AL/PL ATELE T RBC 4.88 x10e6 /uL 4.14-5 .80 normal Not Available [facility] ([facility]) [address] [place], [address], 05/30/2025 08:11:56 05/29/20 25 05/30/2025 CBC WITH DIFFE RENTI AL/PL ATELE T hemoglobin 15.6 g/dL 13.0-1 7.7 normal Not Available [facility] ([facility]) [address] [place], [address], 05/30/2025 08:11:56 05/29/2005/30/2025 CBC WITH DIFFE RENTI AL/PL ATELE T hematocrit 48.0 % 37.5-5 1.0 normal Not Available [facility] ([facility]) [address] [place], [address], 05/30/2025 08:11:56 10/09/20 25 05/30/2025 CBC WITH DIFFE RENTI AL/PL ATELE T MCV 98 fL 79-97 above high normal Not Available [facility] ([facility]) [address] [place], [address], 05/30/2025 08:11:56 05/29/20 25 05/30/2025 CBC WITH DIFFE RENTI AL/PL ATELE T MCH 32.0 pg 26.6-3 3.0 normal Not Available [facility] ([facility]) [address] [facility], [place], [address], 05/30/2025 08:11:56 05/29/20 25 05/30/2025 CBC WITH DIFFE RENTI AL/PL ATELE T MCHC 32.5 g/dL 31.5-3 5.7 normal Not Available [facility] ([facility]) [address] [place], [address], 05/30/2025 08:11:56 05/29/20 25 05/30/2025 CBC WITH DIFFE RENTI AL/PL ATELE T RDW 12.8 % 11.6-1 5.4 Not Available [facility] ([facility]) [address] [place], [address], 05/30/2025 08:11:56 05/29/20 25 05/30/2025 CBC WITH DIFFE RENTI AL/PL ATELE T platelets 166 x10e3 /uL 150-45 0 normal Not Available [facility] ([facility]) [address] [place], [address], 05/30/2025 08:11:56 05/29/20 25 05/30/2025 CBC WITH DIFFE RENTI AL/PL ATELE T neutrophils 65 % not estab. normal Not Available [facility] ([facility]) [address] [place], [address], 05/30/2025 08:11:56 05/29/20 25 05/30/2025 CBC WITH DIFFE RENTI AL/PL ATELE T lymphs 22 % not estab. normal Not Available [facility] ([facility]) [address] [facility], [place], [address], 05/30/2025 08:11:56 05/29/20 25 05/30/2025 CBC WITH DIFFE RENTI AL/PL ATELE T monocytes 11 % not estab. normal Not Available [facility] ([facility]) [address] [facility], [place], [address], 05/30/2025 08:11:56 05/29/20 25 05/30/2025 CBC WITH DIFFE RENTI AL/PL ATELE T eos 1 % not estab. normal Not Available [facility] ([facility]) [address] [facility], [place], [address], 05/30/2025 08:11:56 05/29/20 25 05/30/2025 CBC WITH DIFFE RENTI AL/PL ATELE T basos 1 % not estab. normal Not Available [facility] ([facility]) [address] [facility], [place], [address], 05/30/2025 08:11:56 05/29/2005/30/2025 CBC WITH DIFFE RENTI AL/PL ATELE T immature cells WAD IMPREGNATOR Not Available [facility] ([facility]) [address] [place], [address], 05/30/2025 08:11:56 05/29/20 25 05/30/2025 CBC WITH DIFFE RENTI AL/PL ATELE T neutrophils (absolute) 4.6 x10e3 /uL 1.4-7. 0 normal Not Available [facility] ([facility]) [address] [place], [address], 05/30/2025 08:11:56 05/29/20 25 05/30/2025 CBC WITH DIFFE RENTI AL/PL ATELE T lymphs (absolute) 1.5 x10e3 /uL 0.7-3. 1 normal Not Available [facility] ([facility]) [address] [facility], [place], [address], 05/30/2025 08:11:56 05/29/20 25 05/30/2025 CBC WITH DIFFE RENTI AL/PL ATELE T monocytes(ab solute) 0.8 x10e3 /uL 0.1-0. 9 normal Not Available [facility] ([facility]) [address] [facility], [place], [address], 05/30/2025 08:11:56 05/29/20 25 05/30/2025 CBC WITH DIFFE RENTI AL/PL ATELE T eos (absolute) 0.1 x10e3 /uL 0.0-0. 4 normal Not Available [facility] ([facility]) [address] [facility], [place], [address], 05/30/2025 08:11:56 05/29/20 25 05/30/2025 CBC WITH DIFFE RENTI AL/PL ATELE T baso (absolute) 0.0 x10e3 /uL 0.0-0. 2 normal Not Available [facility] ([facility]) [address] [facility], [place], [address], 05/30/2025 08:11:56 05/29/20 25 05/30/2025 CBC WITH DIFFE RENTI AL/PL ATELE T immature granulocytes 0 % not estab. Not Available [facility] ([facility]) [address] [facility], [place], [address], 05/30/2025 08:11:56 05/29/20 25 05/30/2025 CBC WITH DIFFE RENTI AL/PL ATELE T immature grans (abs) 0.0 x10e3 /uL 0.0-0. 1 Not Available [facility] ([facility]) [address] [facility], [place], [address], 05/30/2025 08:11:56 05/29/20 25 05/30/2025 CBC WITH DIFFE RENTI AL/PL ATELE T NRBC WAD IMPREGNATOR Not Available [facility] ([facility]) [address] [facility], [place], [address], 05/30/2025 08:11:56 05/29/20 25 05/30/2025 CBC WITH DIFFE RENTI AL/PL ATELE T hematology comments: WAD IMPREGNATOR Not Available [facility] ([facility]) [address] [facility], [place], [address], 05/30/2025 08:11:56 05/29/20 25 05/30/2025 COMP. METAB OLIC PANEL (14) glucose 69 mg/dL 70-99 below low normal Not Available [facility] ([facility]) [address] [place], [address], 05/30/2025 08:11:57 05/29/20 25 05/30/2025 COMP. METAB OLIC PANEL (14) BUN 12 mg/dL 8-27 normal Not Available [facility] ([facility]) [address] [place], [address], 05/30/2025 08:11:57 05/29/2005/30/2025 COMP. METAB OLIC PANEL (14) creatinine 1.19 mg/dL 0.76-1 .27 normal Not Available [facility] ([facility]) [address] [facility] [place], [address], 05/30/2025 08:11:57 05/29/20 25 05/30/2025 COMP. METAB OLIC PANEL (14) eGFR 59 mL/mi n/1.7 3 >59 below low normal Not Available [facility] ([facility]) [address] [place], [address], 05/30/2025 08:11:57 05/29/20 25 05/30/2025 COMP. METAB OLIC PANEL (14) BUN/creatini ne ratio 10 10-24 normal Not Available [facility] ([facility]) [address] [place], [address], 05/30/2025 08:11:57 05/29/20 25 05/30/2025 COMP. METAB OLIC PANEL (14) sodium 139 mmol/ L 134-14 4 normal Not Available [facility] ([facility]) [address] [place], [address], 05/30/2025 08:11:57 05/29/20 25 05/30/2025 COMP. METAB OLIC PANEL (14) potassium 3.8 mmol/ L 3.5-5. 2 normal Not Available [facility] ([facility]) [address] [place], [address], 05/30/2025 08:11:57 05/29/2005/30/2025 COMP. METAB OLIC PANEL (14) chloride 99 mmol/ L 96-106 normal Not Available [facility] ([facility]) [address] [facility] [place], [address], 05/30/2025 08:11:57 05/29/20 25 05/30/2025 COMP. METAB OLIC PANEL (14) carbon dioxide, total 25 mmol/ L 20-29 normal Not Available [facility] ([facility]) [address] [facility] [place], [address], 05/30/2025 08:11:57 05/29/20 25 05/30/2025 COMP. METAB OLIC PANEL (14) calcium 9.8 mg/dL 8.6-10 .2 normal Not Available [facility] ([facility]) [address] [place], [address], 05/30/2025 08:11:57 05/29/20 25 05/30/2025 COMP. METAB OLIC PANEL (14) protein, total 6.6 g/dL 6.0-8. 5 normal Not Available [facility] ([facility]) [address] [facility] [place], [address], 05/30/2025 08:11:57 05/29/20 25 05/30/2025 COMP. METAB OLIC PANEL (14) albumin 4.5 g/dL 3.7-4. 7 normal Not Available [facility] ([facility]) [address] [facility] [place], [address], 05/30/2025 08:11:57 05/29/20 25 05/30/2025 COMP. METAB OLIC PANEL (14) globulin, total 2.1 g/dL 1.5-4. 5 Not Available [facility] ([facility]) [address] [facility] [place], [address], 05/30/2025 08:11:57 05/29/2005/30/2025 COMP. METAB OLIC PANEL (14) bilirubin, total 0.8 mg/dL 0.0-1. 2 normal Not Available [facility] ([facility]) [address] [facility] [place], [address], 05/30/2025 08:11:57 05/29/20 25 05/30/2025 COMP. METAB OLIC PANEL (14) alkaline phosphatase 79 IU/L 48-129 normal Not Available [facility] ([facility]) [address] [facility] [place], [address], 05/30/2025 08:11:57 05/29/20 25 05/30/2025 COMP. METAB OLIC PANEL (14) AST (SGOT) 22 IU/L 0-40 normal Not Available [facility] ([facility]) [address] [facility] [place], [address], 05/30/2025 08:11:57 05/29/20 25 05/30/2025 COMP. METAB OLIC PANEL (14) ALT (SGPT) 18 IU/L 0-44 normal Not Available [facility] ([facility]) [address] [facility] [place], [address], 05/30/2025 08:11:57 05/29/20 25 05/30/2025 LIPID PANEL cholesterol, total 143 mg/dL 100-19 9 normal Not Available [facility] ([facility]) [address] [place], [address], 05/30/2025 08:11:58 05/29/20 25 05/30/2025 LIPID PANEL triglyceride s 117 mg/dL 0-149 normal Not Available [facility] ([facility]) [address] [facility], [place], [address], 05/30/2025 08:11:58 05/29/20 25 05/30/2025 LIPID PANEL HDL cholesterol 43 mg/dL >39 normal Not Available [facility] ([facility]) [address] [facility], [place], [address], 05/30/2025 08:11:58 05/29/20 25 05/30/2025 LIPID PANEL VLDL cholesterol sukhi 21 mg/dL 5-40 Not Available [facility] ([facility]) [address] [facility], [place], [address], 05/30/2025 08:11:58 05/29/20 25 05/30/2025 LIPID PANEL LDL chol calc ([facility]) 79 mg/dL 0-99 Not Available [facility] ([facility]) [address] [facility], [place], [address], 05/30/2025 08:11:58 05/29/20 25 05/30/2025 LIPID PANEL LDL calc comment: WAD IMPREGNATOR Not Available [facility] ([facility]) [address] [facility], [place], [address], 05/30/2025 08:11:58 05/29/20 25 05/30/2025 VITAM IN B12 AND FOLAT E vitamin B12 397 pg/mL 232-12 45 normal Not Available [facility] ([facility]) [address] [facility], [place], [address], 05/30/2025 08:11:58 05/29/2005/30/2025 VITAM IN B12 AND FOLAT E folate (folic acid), serum 5.6 NG/mL >3.0 normal A serum folat e hina ntrat ion of less than 3.1 ng/mL is consi dered to repre sent clini sukhi defic iency . Not Available [facility] ([facility]) [address] [facility], [place], [address], 05/30/2025 08:11:58 05/29/2005/30/2025 TSH TSH 1.590 uIU/m L 0.450- 4.500 normal Not Available [facility] ([facility]) [address] [facility], [place], [address], 05/30/2025 08:11:58 05/29/2005/30/2025 PROST ATE-S PECIF IC AG prostate specific Ag 4.9 NG/mL 0.0-4. 0 above high normal Magda ECLIA metho dolog y. Accor ding to the Ameri can Urolo gical Assoc iatio n, Serum PSA shoul d decre ase and remai n at undet ectab le level s after radic al prost atect yulissa. The AUA defin es bioch emica l recur rence as an initi al PSA value 0.2 ng/mL or great er follo wed by a subse quent confi rmato ry PSA value 0.2 ng/mL or great er. Value s obtai nusrat with diffe rent assay metho ds or kits canno t be used inter [place] eably . Resul ts canno t be inter prete d as absol audrey evide nce of the prese nce or absen ce of [facility] fredy pedroza se. Not Available [facility] ([facility]) [address] [facility], [place], [address], 05/30/2025 08:11:59 05/29/2005/30/2025 VITAM IN D, 25-HY DROXY vitamin D, 25-hydroxy 27.2 NG/mL 30.0-1 00.0 below low normal Vitam in D defic iency has been defin ed by the Insti tute of Medic ine and an Endoc rine Socie ty pract ice guide line as a level of serum 25-OH vitam in D less than 20 ng/mL (1,2) . The Endoc rine Socie ty went on to furth er defin e vitam in D insuf ficie ncy as a level betwe en 21 and 29 ng/mL (2). 1. IOM (Inst itute of Medic ine). 2009. Dieta ry refer ence intak es for calci um and D. Candelario marin [place]: The [facility] . 2. Imtiaz woodward [place], Simran mcarthur [place], Damien off-F errar i CRUZ, et al. Evalu ation , treat ment, and preve ntion of vitam in D defic iency : an Endoc rine Socie ty clini sukhi pract ice guide line. JCEM. 2010; 96(7) :1911 -30. Not Available [facility] ([facility]) [address] [facility], [place], [address], 05/30/2025 08:11:59 Result Notes None recorded. Problems Name Problem SNOMED Code Status Onset Date Resolution Date Notes Provider Name and Address Organization Details Recorded Time Pain in left knee Completed 201610/17/2016 Problem Code: M25.562; Problem Code Type: ICD-10; Not Available [facility] 2 21:01:52 Infected bursa [id number] Completed 201612/02/2016 Problem Code: M71.162; Problem Code Type: ICD-10; Not Available [facility] 2 21:01:52 Bursitis 48990613 Completed 201612/02/2016 Problem Code: 727.3; Problem Code Type: ICD-9; Not Available [facility] 2 21:02:04 Knee pain Completed 201610/17/2016 Problem Code: 719.46; Problem Code Type: ICD-9; Not Available [facility] 2 21:02:07 Prolapse d lumbar interver tebral disc [id number] Active 2016 Problem Code: M51.26; Problem Code Type: ICD-10; Not Available [facility] 2 21:01:52 Displace ment of lumbar interver tebral disc without myelopat hy 87107600 Completed 201602/19/2021 Problem Code: 722.10; Problem Code Type: ICD-9; Not Available [facility] 2 21:02:03 Hyperten sive disorder 51386942 Completed 201611/28/2017 Problem Code: I10; Problem Code Type: ICD-10; Not Available [facility] 2 21:01:50 Pain in right knee Completed 201607/02/2017 Problem Code: M25.561; Problem Code Type: ICD-10; Not Available [facility] 2 21:01:52 Pain in left knee Completed 201607/02/2017 Problem Code: M25.562; Problem Code Type: ICD-10; Not Available [facility] 2 21:02:01 Benign essentia l hyperten mary 2563336 Completed 201608/24/2017 Problem Code: 401.1; Problem Code Type: ICD-9; Not Available [facility] 2 21:02:02 Knee pain Completed 201607/02/2017 Problem Code: 719.46; Problem Code Type: ICD-9; Not Available [facility] 2 21:02:03 Chronic gouty arthriti s 73157354 Completed 201708/24/2017 Problem Code: M1A.0710 ; Problem Code Type: ICD-10; Not Available [facility] 2 21:01:51 Chronic gout without tophus 267289486 Completed 201708/24/2017 Problem Code: M1A.9XX0 ; Problem Code Type: ICD-10; Not Available [facility] 2 21:01:51 Pain in right knee Completed 201710/09/2017 Problem Code: M25.561; Problem Code Type: ICD-10; Not Available [facility] 2 21:01:52 Pain in left knee Completed 201710/09/2017 Problem Code: M25.562; Problem Code Type: ICD-10; Not Available [facility] 2 21:01:52 Low back pain 080571486 Completed 201710/09/2017 Problem Code: M54.5; Problem Code Type: ICD-10; Not Available [facility] 2 21:01:52 Knee pain Completed 201710/09/2017 Problem Code: 719.46; Problem Code Type: ICD-9; Not Available [facility] 2 21:02:04 Choleste rol screenin g Completed 201710/09/2017 Not Available [facility] 2 21:01:56 Hyperlip idemia screenin g Completed 201710/09/2017 Problem Code: V77.91; Problem Code Type: ICD-9; Not Available [facility] 2 21:02:05 Influenz a 4266470 Completed 201710/23/2017 Problem Code: J11.1; Problem Code Type: ICD-10; Not Available [facility] 2 21:01:50 Influenz a with non-resp iratory manifest ation 49515167 Completed 201710/23/2017 Problem Code: 487.8; Problem Code Type: ICD-9; Not Available [facility] 2 21:02:03 Influenz a 9661137 Completed 201712/11/2017 Problem Code: J10.1; Problem Code Type: ICD-10; Not Available [facility] 2 21:01:50 Acute bronchit is 01746952 Completed 201712/11/2017 Problem Code: J20.8; Problem Code Type: ICD-10; JASIEL schneider [facility] [employer] [facility]. 2 10:21:27 Influenz a with non-resp iratory manifest ation 06835460 Completed 201712/11/2017 Problem Code: 487.8; Problem Code Type: ICD-9; Not Available [facility] 2 21:02:04 Chronic gouty arthriti s 58288562 Completed 201705/21/2021 Problem Code: M1A.0710 ; Problem Code Type: ICD-10; Not Available [facility] 2 21:01:51 Uncontro lled type 2 diabetes mellitus 782132546 Completed 201705/20/2022 JASIEL schneider, [employer] 2 10:21:28 Localize d edema 275002105 Completed 201703/12/2018 Problem Code: R60.0; Problem Code Type: ICD-10; JASIEL schneider, [employer] 2 10:21:27 Edema 949274656 Completed 201703/12/2018 Problem Code: 782.3; Problem Code Type: ICD-9; JASIEL schneider, [employer]. 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 2 10:21:27 Disorder of nervous system due to type 2 diabetes mellitus 198197251 Completed 201702/19/2021 Problem Code: 250.60; Problem Code Type: ICD-9; Not Available [facility] 2 21:02:00 Edema 032197090 Completed 201704/12/2018 Problem Code: 782.3; Problem Code Type: ICD-9; JASIEL schneider, [employer] 2 10:21:27 Localize d edema 405954438 Completed 201705/20/2022 Problem Code: R60.0; Problem Code Type: ICD-10; JASIEL SIMONNER wyatt, [employer]. 2 10:21:27 Fracture of multiple ribs 1346004 Completed 201708/25/2020 Problem Code: S22.49XA ; Problem Code Type: ICD-10; Not Available [facility] 2 21:01:55 Edema 000451694 Completed 201705/20/2022 Problem Code: 782.3; Problem Code Type: ICD-9; JASIEL schneider, [employer] 2 10:21:27 Closed fracture of two ribs 1579230 Completed 201702/19/2021 Problem Code: 807.02; Problem Code Type: ICD-9; Not Available [facility] 2 21:02:05 Chronic gouty arthriti s 93026736 Completed 201705/21/2021 Problem Code: M1A.0710 ; Problem Code Type: ICD-10; Not Available [facility] 2 21:01:51 Abnormal weight gain 111834781 Completed 201707/28/2018 Problem Code: R63.5; Problem Code Type: ICD-10; Not Available [facility] 2 21:01:54 Chronic gouty arthriti s 34797248 Active 2017 Problem Code: M1A.0710 ; Problem Code Type: ICD-10; Not Available [facility] 2 21:01:59 Acute bronchit is 40623791 Completed 201805/20/2022 Problem Code: J20.9; Problem Code Type: ICD-10; JASIEL schneider, [employer] 2 10:21:27 Hypothyr oidism 59395488 Active 2018 Not Available [facility] 2 21:01:49 Screenin g for malignan t neoplasm of prostate Completed 201805/20/2022 Problem Code: Z12.5; Problem Code Type: ICD-10; JASIEL schneider [employer] 2 10:21:28 Body mass index 30+ - obesity 618444656 Completed 201808/25/2020 Problem Code: Z68.30; Problem Code Type: ICD-10; JASIEL schneider, [employer]. 2 10:21:27 Allergic contact dermatit is caused by plant material [id number] 957235 Completed 201905/20/2022 Problem Code: L23.7; Problem Code Type: ICD-10; JASIEL schneider, [employer] 2 10:21:27 General examinat ion of patient Completed 201905/20/2022 JASIEL schneider, [employer]. 2 10:21:27 Body mass index 25-29 - overweig 814378142 Completed 201905/20/2022 Problem Code: Z68.29; Problem Code Type: ICD-10; JASIEL schneider, [employer]. 2 10:21:27 Itching 734065218 Completed 201905/20/2022 Problem Code: L29.9; Problem Code Type: ICD-10; JASIEL schneider, [employer]. 2 10:21:28 [facility] 155882975 Completed 201905/20/2022 Problem Code: R21; Problem Code Type: ICD-10; JASIEL schneider, [employer]. 2 10:21:27 Body mass index 25-29 - overweig 293184510 Completed 201908/25/2020 Problem Code: Z68.29; Problem Code Type: ICD-10; JASIEL schneider, [employer]. 2 10:21:27 Influenz a vaccine needed [id number] 06 Completed 201908/25/2020 Problem Code: Z23; Problem Code Type: ICD-10; JASIEL schneider, [employer] 2 10:21:27 Nicotine dependen ce 10414398 Active 2020 Problem Code: F17.200; Problem Code Type: ICD-10; Not Available [facility] 21:01:49 Body mass index 30+ - obesity 300498066 Completed 202009/24/2020 Problem Code: Z68.32; Problem Code Type: ICD-10; JASIEL schneider, [employer] 10:21:27 Tingling of skin 622879307 Completed 202005/20/2022 Problem Code: R20.2; Problem Code Type: ICD-10; JASIEL schneider, [employer] 10:21:27 Body mass index 30+ - obesity 975128567 Completed 202005/20/2022 Problem Code: Z68.30; Problem Code Type: ICD-10; JASIEL schneider, [employer] 10:21:27 Acute pharyngi tis 348626342 Completed 202005/20/2022 JASIEL schneider, [employer] 10:21:27 Acute respirat ory infectio ns 758784616 Completed 202005/20/2022 Problem Code: J22; Problem Code Type: ICD-10; JASIEL schneider, [employer] 10:21:27 Cough 56305134 Completed 202012/24/2020 Problem Code: R05; Problem Code Type: ICD-10; Not Available [facility] 21:01:52 Cough 72495702 Completed 202012/24/2020 Problem Code: R05; Problem Code Type: ICD-10; Not Available [facility] 21:01:53 Dyspnea 068168892 Completed 202002/19/2021 Problem Code: R06.02; Problem Code Type: ICD-10; Not Available [facility] 21:01:53 Cough 72644118 Completed 202002/19/2021 Problem Code: R05; Problem Code Type: ICD-10; Not Available [facility] 2 21:01:53 Dysphagi a 19949708 Completed 202005/20/2022 JASIEL SIMONNER Bazari, [employer] 2 10:21:28 Hyperten sive disorder 71136141 Active 2020 Problem Code: I10; Problem Code Type: ICD-10; Not Available [facility] 2 21:01:49 Noninfec tious gastroen teritis 81620813 Completed 202005/20/2022 JASIELIZZY KAN Bazari, [employer]. 2 10:21:27 Influenz a vaccine needed [id number] 06 Completed 202005/20/2022 Problem Code: Z23; Problem Code Type: ICD-10; JASIEL schneider, [employer] 2 10:21:27 Current drug user 215253721 Active 2020 Problem Code: Z79.899; Problem Code Type: ICD-10; Not Available [facility] 2 21:02:00 Body mass index 30+ - obesity 183358429 Completed 202102/17/2022 Problem Code: Z68.30; Problem Code Type: ICD-10; JASIEL schneider, [employer] 2 10:21:27 Type 2 diabetes mellitus without complica tion 131437255 Active 2021 Not Available [facility] 2 21:01:49 Body mass index 25-29 - overweig ht 904173221 Completed 202102/17/2022 Problem Code: Z68.29; Problem Code Type: ICD-10; JASIEL schneider, [employer]. 2 10:21:27 [facility] 64367130 Active 2021 Cullen Manzano [address], [address] , [employer]. 2 08:19:59 Diabetes mellitus 27753476 Active 2023 Sadie schneider, [employer] 4 13:26:58 Well controll ed type 2 diabetes mellitus 562474826 Active 2024 Sadie schneider, [employer] 5 10:25:51 Problem Notes None recorded. Medical Equipment None Reported. Allergies No known drug allergies Medications Name Sig Start Date Stop Date Status Note LastModified by Organization Details LastModified Time Miralax 17 gram oral powder packet Take 17 g every 4 hours by oral route as needed. active Not Available Not Available No t Available atorvasta tin 40 mg tablet 09/22 completed LFTs elevated and choleste rol very low Not Available Not Available Not Available metformin 500 mg tablet 1 tablet PO BID 05/20 completed Not Available Not Available Not Available clonidine HCl 0.1 mg tablet TAKE 1 TABLET BY MOUTH TWICE DAILY active Not Available Not Available No t Available atorvasta tin 20 mg tablet TAKE ONE TABLET BY MOUTH AT BEDTIME FOR choleste rol 2024 active Not Available Not Available Not Avai lable triamcino lone acetonide 0.5 % topical cream apply a thin layer to the affected area(s) by topical route 2 times per day 2020 active Not Available Not Available Not Avai lable azithromy debbie 250 mg tablet take 2 tablets (500 mg) by oral route once daily for 1 day then 1 tablet (250 mg) by oral route once daily for 4 days 12/24 completed Not Available Not Available Not Available metoprolo l succinate ER 50 mg tablet,ex tended release 24 hr TAKE 2 TABLETS BY MOUTH EVERY DAY active Not Available Not Available No t Available Lasix 40 mg tablet one tablet po in the a.m. 12/25 completed Not Available Not Available Not Available ondansetr on HCl 4 mg tablet 09/19 completed Not Available Not Available Not Available glipizide 10 mg tablet TAKE 1 TABLET BY MOUTH TWICE DAILY active Not Available Not Available No t Available clopidogr el 75 mg tablet TAKE 1 TABLET BY MOUTH DAILY active Not Available Not Available No t Available dextromet horphan-g uaifenesi n 10 mg-100 mg/5 mL oral syrup Take 1 teaspoon by mouth q4h prn for cough 11/28 completed Not Available Not Available Not Available amlodipin e 5 mg tablet once per day 11/28 completed Not Available Not Available Not Available allopurin ol 100 mg tablet TAKE ONE TABLET BY MOUTH EVERY DAY active Not Available Not Available No t Available omeprazol e 40 mg capsule,d elayed release Take 1 capsule every day by oral route before meal(s). active Not Available Not Available No t Available amitripty line 50 mg tablet TAKE ONE TABLET BY MOUTH EVERY DAY 2024 active Not Available Not Available Not Avai lable levothyro xine 25 mcg tablet TAKE ONE TABLET BY MOUTH EVERY DAY 2024 active Not Available Not Available Not Avai lable meloxicam 7.5 mg tablet 1 pill q day prn knee pain 03/29 completed Not Available Not Available Not Available amoxicill in 875 mg tablet Take 1 tablet every 12 hours by oral route for 7 days. 05/13 completed Not Available Not Available Not Available amlodipin e 10 mg tablet TAKE 1 TABLET BY MOUTH EVERY DAY 2024 active Not Available Not Available Not Avai lable Lasix 20 mg tablet 2 po q a.m. for the next 7 days then 1 po q day in the morning time 05/29 completed Not Available Not Available Not Available pantopraz ole 40 mg tablet,de layed release Take 1 tablet every day by oral route for 90 days. 09/19 completed Not Available Not Available Not Available metformin 1,000 mg tablet take 1 tablet (1,000 mg) by oral route 2 times per day with morning and evening meals 05/20 completed elevated creatini ne Not Available Not Available Not Available lisinopri l 10 mg tablet Take 1 tablet every day by oral route. 07/18 completed Not Available Not Available Not Available losartan 25 mg tablet take 1 tablet (25 mg) by oral route once daily 02/19 completed Not Available Not Available Not Available indometha debbie 25 mg capsule take 2 po today every 6 hours and then 1 po qid for the next 2 weeks 02/24 completed Not Available Not Available Not Available gabapenti n 300 mg capsule TAKE 1 CAPSULE BY MOUTH THREE TIMES DAILY active Not Available Not Available No t Available triamtere ne 37.5 mg-hydroc hlorothia zide 25 mg tablet Take 1 tablet(s ) by mouth daily 02/26 completed Not Available Not Available Not Available allopurin ol 300 mg tablet TAKE 1 TABLET BY MOUTH DAILY 09/22 completed kidney and liver function high Not Available Not Available Not Available lisinopri l 5 mg tablet take 1 tablet (5 mg) by oral route once daily 05/20 completed Not Available Not Available Not Available Levaquin 500 mg tablet Take 1 tablet(s ) by mouth daily for 10 days 11/21 completed Not Available Not Available Not Available albuterol sulfate HFA 90 mcg/actua tion aerosol inhaler inhale 1 - 2 puffs (90 - 180 mcg) by inhalati on route every 4 hours as needed active Not Available Not Available No t Available brompheni ramine-ps eudoephed rine-DM 2 mg-30 mg-10 mg/5 mL oral syrup take 10 millilit ers by oral route every 4 hours PRN cough 02/19 completed Not Available Not Available Not Available lisinopri l 40 mg tablet TAKE ONE TABLET BY MOUTH DAILY 2024 active Not Available Not Available Not Avai lable ondansetr on 4 mg disintegr ating tablet Place 1 tablet every 4 hours by translin gual route as needed. 09/19 completed Not Available Not Available Not Available BD Ultra-Fin e Mini Pen Needle 31 gauge x 3/16 use as directed with victoza active Not Available Not Available No t Available aspirin 81 mg QD active Not Available Not Michelle ilable Not Available hydrochlo rothiazid e 12.5 mg tablet TAKE ONE TABLET (12.5 MG) BY MOUTH EVERY DAY active Not Available Not Available No t Available liragluti de 0.6 mg/0.1 mL (18 mg/3 mL) subcutane ous pen injector Inject by subcutan eous route for 30 days. 03/26 completed Not Available Not Available Not Available topiramat e XR 50 mg capsule sprinkle, extended release 24 hr Take one capsule twice daily 03/25 completed Not Available Not Available Not Available Jardiance 25 mg tablet TAKE 1 TABLET BY MOUTH EVERY MORNING 2024 active Not Available Not Available Not Avai lable Ozempic 0.25 mg or 0.5 mg (2 mg/1.5 mL) subcutane ous pen injector inject 0.25mg SQ q week 10/03 completed Not Available Not Available Not Available Fluzone High-Dose 5951-3480 (PF) 180 mcg/0.5 mL intramusc ular syringe Inject intramus cularly as directed 07/28 completed Not Available Not Available Not Available Ozempic 0.25 mg or 0.5 mg (2 mg/3 mL) subcutane ous pen injector inject 0.5 MG subcutan eously ONCE WEEKLY 2024 active on hold until 08/2025 Not Available Not Available Not Available Vitals Date Recorded Body height Body mass index (BMI) Body weight Heart rate Oxygen saturation Systolic And Diastolic Provider Name and Address Organization Details Last Updated DateTime 5 172.72 cm 25.1 kg/m2 02200.7 4 g 53 /min 95 % 136/87 mm[Hg] Sadie Andrade [employer] 5 09:01:09 Social History Question Answer Notes LastModified by Organizat ion Details LastModified Time Tobacco Smoking Status Never Smoker JASIEL schneider [employer] 05/20/2022 10:23:47 Is Your Home Air Conditioned? Yes Information not available 03/10/2023 Are You Blind Or Do You Have Difficulty Seeing? No [email or web address] Information n ot available 05/20/2022 Are You A Caregiver? No Information not available 03/10/2023 In The 14 Days Before Symptom Onset, Have You Had Close Contact With A Laboratory-confirm ed COVID-19 While That Case Was Ill? No Information n ot available 06/20/2023 In The 14 Days Before Symptom Onset, Have You Had Close Contact With A Person Who Is Under Investigation For COVID-19 While That Person Was Ill? No Information not available 06/20/2023 Have You Been To An Area Known To Be High Risk For COVID-19? No Information not available 06/20/2023 Are You Deaf Or Do You Have Serious Difficulty Hearing? No [email or web address] Information not available 05/20/2022 What Type Of Diet Are You Following? REGULAR Information n ot available 07/26/2023 Have There Been Any Changes To Your Family Or Social Situation? No Information no t available 03/10/2023 What Was The Date Of Your Most Recent Tobacco Screening? 05/29/2025 Information not available 05/29/2025 What Is Your Relationship Status? [email or web address] Information not available 05/20/2022 Do You Use Your Seat Belt Or Car Seat Routinely? Yes Information not available 07/26/2023 Do You Have Smoke And Carbon Monoxide Detectors In Your Home? Yes Information not available 03/10/2023 Do You Use Sunscreen Routinely? Yes Information not available 06/20/2023 Has Tobacco Cessation Counseling Been Provided? No Information not available 06/18/2024 On What Date Was Tobacco Cessation Counseling Provided? 05/29/2025 Information not available 05/29/2025 Have You Recently Traveled Abroad? No Information not available 06/20/2023 Do You Have Difficulty Walking Or Climbing Stairs? No [email or web address] Information not available 05/20/2022 Are You Currently In School? No [email or web address] Information not available 05/20/2022 Do You Have Any Dietary Restrictions? No Information not available 07/26/2023 Sex: Male Functional Status Question Answer Note LastModified by Organizat ion Details LastModified Time What is your level of alcohol consumption? None [email or web address] Information not available 05/20/2022 Do you or have you ever used smokeless tobacco? Current snuff user Information not available 05/20/2022 Do you have transportation difficulties? No [email or web address] Information not available 05/20/2022 Are you able to walk independently without assistance or assistive devices? YESWOREST [email or web address] Information not available 05/20/2022 Do you have difficulty doing errands alone? No [email or web address] Information not available 05/20/2022 Are you able to care for yourself independently? Yes [email or web address] Information not available 05/20/2022 Do you have difficulty dressing, bathing, grooming, or toileting? No [email or web address] Information not available 05/20/2022 Mental Status Question Answer Note LastModified by Organization D etails LastModified Time Do you have difficulty concentrating, remembering or making decisions? No [email or web address] Information no t available 05/20/2022 Family History Relationship Description Onset Age of this Age Resolved Age Notes LastModified by Organization Details LastModified Time Son Family history of malignant neoplasm [email or web address] Not available 05/20 10:22:48 Unspecified Relation Family history of Myocardial infarction [email or web address] Not available 04/23 10:21:57 Unspecified Relation Family history of Ulcerative colitis [email or web address] Not available 05/20 10:22:25 Father No current problems or disability [email or web address] Not available 04/23 10:22:58 Mother No current problems or disability Not available 04/23 10:22:58 Medical History Condition Response Diabetes Y Gout Y Hypertension Y Immunizations Vaccine Type Date Status Note Provider Nam e and Address Organization Details Recorded Time Influenza, high-dose, quadrivalent, PF 3 completed Roselia Brady APRN [address] [place], [address], [employer] 05/23/2023 11:21:26 COVID-19, mRNA, LNP-S, PF, tamar-sucrose, 30 mcg/0.3 mL 3 completed Sadie schneider, [employer] 06/30/2023 17:52:04 Influenza, split virus, quadrivalent, PF 2 completed Roselia Brady APRN [address] [place], [address], [employer] 06/06/2022 13:21:34 Pneumococcal conjugate PCV 13 0 completed Not Available [facility] 04/26/2022 23:26:56 COVID-19, mRNA, LNP-S, PF, 100 mcg/0.5mL dose or 50 mcg/0.25mL dose 1 completed Sadie schneider, [employer] 05/29/2025 08:55:03 COVID-19, mRNA, LNP-S, PF, 100 mcg/0.5mL dose or 50 mcg/0.25mL dose 1 completed Sadie schneider, [employer] 05/29/2025 08:55:03 Influenza, split virus, quadrivalent, preservative 8 completed Not Available [facility] 04/26/2022 23:26:57 Influenza, split virus, quadrivalent, PF 1 completed Not Available [facility] 04/26/2022 23:26:57 Influenza, split virus, quadrivalent, preservative 0 completed Not Available [facility] 04/26/2022 23:26:59 Influenza, high-dose, trivalent, PF 4 completed Marie Trujillo, HUANG [address] [place], [address], [employer] 06/12/2024 13:18:09 COVID-19, mRNA, LNP-S, PF, tamar-sucrose, 30 mcg/0.3 mL 4 completed Roselia Brady APRN [address] [place], [address], [employer] 06/18/2024 12:40:38 Influenza, high-dose, trivalent, PF 5 completed Sadie schneider, [employer] 05/29/2025 11:22:05 COVID-19, mRNA, LNP-S, PF, 100 mcg/0.5mL dose or 50 mcg/0.25mL dose 1 completed Not Available [facility] 05/29/2025 08:54:48 COVID-19, mRNA, LNP-S, PF, 100 mcg/0.5mL dose or 50 mcg/0.25mL dose 2 completed Not Available [facility] 05/29/2025 08:54:48 COVID-19, mRNA, LNP-S, bivalent, PF, 50 mcg/0.5 mL or 25mcg/0.25 mL dose 2 completed Not Available [facility] 05/29/2025 08:54:48 Influenza, split virus, quadrivalent, preservative 9 completed Sadie Andrade [facility], [facility]. 05/29/2025 08:55:03 Past Encounters Encounter ID Performer Location Encounter Start Date Encounter Closed Date Diagnosis/Indication Diagnosis SNOMED-CT Code Diagnosis ICD10 Code Diagnosis IMO Codes Diagnosis Note [id number] [place] [id number] 04/29/2025 16:55:55 04/29/2025 17:24:45 Acute bacterial sinusitis 68405681 J01.90 B96.89 06997 Overweight in adulthood with body mass index of 25 or more but less than 30 205968427 Z68.25 [id number] [place] [id number] 05/29/2025 08:40:41 05/29/2025 09:26:01 Fatigue 50352171 R53.83 5654472 Mixed hyperlipidemia 267 371184 E78.2 48269 Vitamin D deficiency 347 99172 E55.9 22011 Cobalamin deficiency 190 443496 E53.8 83574 Iron defic iency anemia 44108339 D50.9 70269860 Nocturia 643003209 R35.1 79833 Active immunization 3387 9002 Z23 08721905 Unintentio nal weight loss 479174796 R63.4 579746 Overweight in adulthood with body mass index of 25 or more but less than 30 945554714 Z68.25 559834 Health Concerns Section Related Observation LastModified by Organization Detai ls LastModified Time None Recorded Concern Status LastModified by Organization Details LastModified Time None Recorded Payers Encounter Date Sequence Insurance Name Policy Number Policy Russell Covered Member ID Russell Member ID Guarantor Name 05/29/2025 Clarisa VEGA (MEDICARE REPLACEMENT/ ADVANTAGE - PPO) [id number] Miguel Saldaña [id number] Miguel Saldaña Notes Date Note Type Note Provider Name and Address Organization Details Recorded Time 05/29/2025 text/html pt here today for medication refills. pt states that hes doing well on current medication regime. pt states that he is concerned about his wt loss. pt states that he has been eating the same as he always does. pt has lost 20 lbs in a year. pt has also been prescribed ozempic for a year. advised pt to hold ozempic until his next appt in 3 months, follow a diabetic diet and will recheck wt and A1C at next appt. will get labs today as well. pt voiced understanding. Roselia Brady APRN [address] [place] [address], [place], [address], [facility] [employer] 05/29/2025 16:57:44
--- OUTSIDE RECORDS SUMMARY | 2025-07-12 09:29 | XMS_ITS | Data Portability ---
Author Organization [place] [employer] [facility] Address [address] [place] [address] Assessment No assessment recorded. Plan of Treatment Reminders Order Date Submit Date Provider Last Modified By Organization Details Last Modified Time Details Appointments FOLLOW UP 15 2025 10:30A M Lee Brady APRN Not available Not available Not available Lab lipid panel, serum 2024 025 [facility] ([place]), [address] [place], [address], 05/30/2025 08:11:58 CBC w/ auto diff 2024 025 [facility] ([place]), [address] [place], [address], 05/30/2025 08:11:57 CMP, serum or plasma 2024 025 [place] ([place]), [facility] [place], [address], 05/30/2025 08:11:57 TSH, ultra-sen sitive, serum 2024 025 [facility] ([place]), [address] [place], [address], 05/30/2025 08:11:58 vitamin D, 25-hydrox y, total, serum 2024 025 [facility] [address] [place], [address], 05/30/2025 08:11:59 PSA, total, serum or plasma 2024 025 [facility] ([place]), [address] [place] [address], [address], 05/30/2025 08:11:59 iron + TIBC + ferritin, serum 2024 025 [facility] ([place]), [address] [place] [address], [address], 05/30/2025 08:11:56 cobalamin and folate panel, serum 2024 025 [facility] [address] [place] [address], [address], 05/30/2025 08:11:58 HbA1c (hemoglob in A1c), blood [address], [address] [place] [address], [phone], 03/10/2025 14:58:45 cobalamin and folate panel, serum 2024 025 [facility] ([place]), [address] [place] [address], [address], 10/04/2024 08:12:45 vitamin D, 25-hydrox y, total, serum 2024 025 [facility] ([place]), [address] [place] [address], [address], 10/04/2024 08:12:46 PSA, total, serum or plasma 2024 025 [place] [address] [place] [address], [address], 10/04/2024 08:12:46 HbA1c (hemoglob in A1c), blood [address], [address] [place] [address], [address], 10/03/2024 17:40:11 lipid panel, serum 2024 025 [facility]), [address] [place] [address], [address], 10/04/2024 08:12:45 CBC w/ auto diff 2024 025 [facility]), [address] [place] [address], [address], 10/04/2024 08:12:44 CMP, serum or plasma 2024 025 [facility]), [address] [place] [address], [address], 10/04/2024 08:12:44 TSH, ultra-sen sitive, serum 2024 025 [facility]), [address] [place] [address], [address], 10/04/2024 08:12:45 HbA1c (hemoglob in A1c), blood [address], [address] [place] [address], [phone], 06/18/2024 14:16:08 Referral None recorded. Procedures None recorded. Surgeries None recorded. Imaging None recorded. Medication Orders amoxicill in 875 mg tablet 2024 025 [facility], [address] [place] [address], [address], 05/13/2025 05:01:09 gabapenti n 300 mg capsule 2024 025 [facility], [address] [place] [address], [address], 06/12/2025 16:20:22 glipizide 10 mg tablet 2024 025 [facility], [address] [place] [address], [address], 03/11/2025 09:35:32 Jardiance 25 mg tablet 2024 025 [facility], [address] [place] [address], [address], 03/11/2025 09:35:33 amlodipin e 10 mg tablet 2024 025 [facility], [address] [place] [address], [address], 03/11/2025 09:35:31 clonidine HCl 0.1 mg tablet 2024 025 [facility], [address] [place] [address], [address], 03/11/2025 09:35:31 lisinopri l 40 mg tablet 2024 025 [facility], [address] [place] [address], [address], 03/11/2025 09:35:29 metoprolo l succinate ER 50 mg tablet,ex tended release 24 hr 2024 025 [facility], [address] [place] [address], [address], 06/12/2025 16:20:23 Patient TargetsNo targets recorded. Patient InstructionsNo instructions recorded. Reason for Referral None Reported. Results Created Date Observation Date Name Description Value Unit Range Abnormal Flag Note LastModifiedBy Organization Detail LastModifiedTime 06/18/20 24 06/18/2024 HbA1c (hemo globi n A1c), blood HbA1c 6.3 Not Available [address], [address], 06/18/2024 10:52:33 10/03/19 25 10/04/2024 CBC WITH DIFFE RENTI AL/PL ATELE T WBC 6.5 x10e3 /uL 3.4-10 .8 normal Not Available [facility] ([facility]) [address] [place], [address], 10/04/2024 08:12:44 10/03/1910/04/2024 CBC WITH DIFFE RENTI AL/PL ATELE T RBC 4.92 x10e6 /uL 4.14-5 .80 normal Not Available [facility] ([facility]) [address] [place], [address], 10/04/2024 08:12:44 10/03/1910/04/2024 CBC WITH DIFFE RENTI AL/PL ATELE T hemoglobin 15.6 g/dL 13.0-1 7.7 normal Not Available [facility] ([facility]) [address] [place], [address], 10/04/2024 08:12:44 10/03/1910/04/2024 CBC WITH DIFFE RENTI AL/PL ATELE T hematocrit 47.0 % 37.5-5 1.0 normal Not Available [facility] ([facility]) [address] [place], [address], 10/04/2024 08:12:44 10/03/1910/04/2024 CBC WITH DIFFE RENTI AL/PL ATELE T MCV 96 fL 79-97 normal Not Available [facility] ([facility]) [address] [place], [address], 10/04/2024 08:12:44 10/03/1910/04/2024 CBC WITH DIFFE RENTI AL/PL ATELE T MCH 31.7 pg 26.6-3 3.0 normal Not Available [facility] ([facility]) [address] [place], [address], 10/04/2024 08:12:44 10/03/1910/04/2024 CBC WITH DIFFE RENTI AL/PL ATELE T MCHC 33.2 g/dL 31.5-3 5.7 normal Not Available [facility] ([facility]) [address] [place], [address], 10/04/2024 08:12:44 10/03/19 25 10/04/2024 CBC WITH DIFFE RENTI AL/PL ATELE T RDW 12.5 % 11.6-1 5.4 Not Available [facility] ([facility]) [address] [facility], [place], [address], 10/04/2024 08:12:44 10/03/19 25 10/04/2024 CBC WITH DIFFE RENTI AL/PL ATELE T platelets 176 x10e3 /uL 150-45 0 normal Not Available [facility] ([facility]) [address] [place], [address], 10/04/2024 08:12:44 10/03/19 25 10/04/2024 CBC WITH DIFFE RENTI AL/PL ATELE T neutrophils 64 % not estab. normal Not Available [facility] ([facility]) [address] [place], [address], 10/04/2024 08:12:44 10/03/19 25 10/04/2024 CBC WITH DIFFE RENTI AL/PL ATELE T lymphs 22 % not estab. normal Not Available [facility] ([facility]) [address] [place], [address], 10/04/2024 08:12:44 10/03/19 25 10/04/2024 CBC WITH DIFFE RENTI AL/PL ATELE T monocytes 10 % not estab. normal Not Available [facility] ([facility]) [address] [place], [address], 10/04/2024 08:12:44 10/03/19 25 10/04/2024 CBC WITH DIFFE RENTI AL/PL ATELE T eos 3 % not estab. normal Not Available [facility] ([facility]) [address] [place], [address], 10/04/2024 08:12:44 10/03/19 25 10/04/2024 CBC WITH DIFFE RENTI AL/PL ATELE T basos 0 % not estab. normal Not Available [facility] ([facility]) [address] [facility], [place], [address], 10/04/2024 08:12:44 10/03/19 25 10/04/2024 CBC WITH DIFFE RENTI AL/PL ATELE T immature cells CRA Not Available [facility] ([facility]) [address] [place], [address], 10/04/2024 08:12:44 10/03/19 25 10/04/2024 CBC WITH DIFFE RENTI AL/PL ATELE T neutrophils (absolute) 4.2 x10e3 /uL 1.4-7. 0 normal Not Available [facility] ([facility]) [address] [place], [address], 10/04/2024 08:12:44 10/03/19 25 10/04/2024 CBC WITH DIFFE RENTI AL/PL ATELE T lymphs (absolute) 1.4 x10e3 /uL 0.7-3. 1 normal Not Available [facility] ([facility]) [address] [place], [address], 10/04/2024 08:12:44 10/03/19 25 10/04/2024 CBC WITH DIFFE RENTI AL/PL ATELE T monocytes(ab solute) 0.7 x10e3 /uL 0.1-0. 9 normal Not Available [facility] ([facility]) [address] [place], [address], 10/04/2024 08:12:44 10/03/19 25 10/04/2024 CBC WITH DIFFE RENTI AL/PL ATELE T eos (absolute) 0.2 x10e3 /uL 0.0-0. 4 normal Not Available [facility] ([facility]) [address] [facility], [place], [address], 10/04/2024 08:12:44 10/03/19 25 10/04/2024 CBC WITH DIFFE RENTI AL/PL ATELE T baso (absolute) 0.0 x10e3 /uL 0.0-0. 2 normal Not Available [facility] ([facility]) [address] [facility], [place], [address], 10/04/2024 08:12:44 10/03/19 25 10/04/2024 CBC WITH DIFFE RENTI AL/PL ATELE T immature granulocytes 1 % not estab. Not Available [facility] ([facility]) [address] [facility], [place], [address], 10/04/2024 08:12:44 10/03/19 25 10/04/2024 CBC WITH DIFFE RENTI AL/PL ATELE T immature grans (abs) 0.0 x10e3 /uL 0.0-0. 1 Not Available [facility] ([facility]) [address] [place], [address], 10/04/2024 08:12:44 10/03/19 25 10/04/2024 CBC WITH DIFFE RENTI AL/PL ATELE T NRBC CRA Not Available [facility] ([facility]) [address] [place], [address], 10/04/2024 08:12:44 10/03/19 25 10/04/2024 CBC WITH DIFFE RENTI AL/PL ATELE T hematology comments: CRA Not Available [facility] ([facility]) [address] [place], [address], 10/04/2024 08:12:44 10/03/19 25 10/04/2024 COMP. METAB OLIC PANEL (14) glucose 128 mg/dL 70-99 above high normal Not Available [facility] ([facility]) [address] [place], [address], 10/04/2024 08:12:44 10/03/19 25 10/04/2024 COMP. METAB OLIC PANEL (14) BUN 15 mg/dL 8-27 normal Not Available [facility] ([facility]) [address] [place], [address], 10/04/2024 08:12:44 10/03/19 25 10/04/2024 COMP. METAB OLIC PANEL (14) creatinine 1.47 mg/dL 0.76-1 .27 above high normal Not Available [facility] ([facility]) [address] [facility] [place] [place], [address], 10/04/2024 08:12:44 10/03/19 25 10/04/2024 COMP. METAB OLIC PANEL (14) eGFR 46 mL/mi n/1.7 3 >59 below low normal Not Available [facility] ([facility]) [address] [place], [address], 10/04/2024 08:12:44 10/03/19 25 10/04/2024 COMP. METAB OLIC PANEL (14) BUN/creatini ne ratio 10 10-24 normal Not Available [facility] ([facility]) [address] [facility] [place] [place], [address], 10/04/2024 08:12:44 10/03/19 25 10/04/2024 COMP. METAB OLIC PANEL (14) sodium 140 mmol/ L 134-14 4 normal Not Available [facility] ([facility]) [address] [facility] [place] [place], [address], 10/04/2024 08:12:44 10/03/19 25 10/04/2024 COMP. METAB OLIC PANEL (14) potassium 4.3 mmol/ L 3.5-5. 2 normal Not Available [facility] ([facility]) [address] [place], [address], 10/04/2024 08:12:44 10/03/19 25 10/04/2024 COMP. METAB OLIC PANEL (14) chloride 102 mmol/ L 96-106 normal Not Available [facility] ([facility]) [address] [place], [address], 10/04/2024 08:12:44 10/03/19 25 10/04/2024 COMP. METAB OLIC PANEL (14) carbon dioxide, total 26 mmol/ L 20-29 normal Not Available [facility] ([facility]) [address] [place], [address], 10/04/2024 08:12:44 10/03/19 25 10/04/2024 COMP. METAB OLIC PANEL (14) calcium 9.5 mg/dL 8.6-10 .2 normal Not Available [facility] ([facility]) [address] [place], [address], 10/04/2024 08:12:44 10/03/19 25 10/04/2024 COMP. METAB OLIC PANEL (14) protein, total 6.5 g/dL 6.0-8. 5 normal Not Available [facility] ([facility]) [address] [place], [address], 10/04/2024 08:12:44 10/03/19 25 10/04/2024 COMP. METAB OLIC PANEL (14) albumin 4.3 g/dL 3.7-4. 7 normal Not Available [facility] ([facility]) [address] [place], [address], 10/04/2024 08:12:44 10/03/19 25 10/04/2024 COMP. METAB OLIC PANEL (14) globulin, total 2.2 g/dL 1.5-4. 5 Not Available [facility] ([facility]) [address] [place], [address], 10/04/2024 08:12:44 10/03/19 25 10/04/2024 COMP. METAB OLIC PANEL (14) bilirubin, total 0.4 mg/dL 0.0-1. 2 normal Not Available [facility] ([facility]) [address] [place], [address], 10/04/2024 08:12:44 10/03/19 25 10/04/2024 COMP. METAB OLIC PANEL (14) alkaline phosphatase 74 IU/L 44-121 normal Not Available [facility] ([facility]) [address] [place], [address], 10/04/2024 08:12:44 10/03/19 25 10/04/2024 COMP. METAB OLIC PANEL (14) AST (SGOT) 28 IU/L 0-40 normal Not Available [facility] ([facility]) [address] [place], [address], 10/04/2024 08:12:44 10/03/19 25 10/04/2024 COMP. METAB OLIC PANEL (14) ALT (SGPT) 29 IU/L 0-44 normal Not Available [facility] ([facility]) [address] [place], [address], 10/04/2024 08:12:44 10/03/19 25 10/04/2024 LIPID PANEL cholesterol, total 101 mg/dL 100-19 9 normal Not Available [facility] ([facility]) [address] [place], [address], 10/04/2024 08:12:45 10/03/19 25 10/04/2024 LIPID PANEL triglyceride s 91 mg/dL 0-149 normal Not Available [facility] ([facility]) [address] [place], [address], 10/04/2024 08:12:45 10/03/19 25 10/04/2024 LIPID PANEL HDL cholesterol 46 mg/dL >39 normal Not Available [facility]) [address] [facility] [place] [place], [address], 10/04/2024 08:12:45 10/03/19 25 10/04/2024 LIPID PANEL VLDL cholesterol sukhi 18 mg/dL 5-40 Not Available [facility] ([facility]) [address] [facility] [place] [place], [address], 10/04/2024 08:12:45 10/03/19 25 10/04/2024 LIPID PANEL LDL chol calc ([facility]) 37 mg/dL 0-99 Not Available [facility]) [address] [facility] [place] [place], [address], 10/04/2024 08:12:45 10/03/19 25 10/04/2024 LIPID PANEL LDL calc comment: CRA Not Available [facility] ([facility]) [address] [facility], [place], [address], 10/04/2024 08:12:45 10/03/19 25 10/04/2024 VITAM IN B12 AND FOLAT E vitamin B12 566 pg/mL 232-12 45 normal Not Available [facility] ([facility]) [address] [place], [address], 10/04/2024 08:12:45 10/03/19 25 10/04/2024 VITAM IN B12 AND FOLAT E folate (folic acid), serum 12.4 NG/mL >3.0 normal A serum folat e hina ntrat ion of less than 3.1 ng/mL is consi dered to repre sent clini sukhi defic iency . Not Available [facility] ([facility]) [address] [facility] [place] [place], [address], 10/04/2024 08:12:45 10/03/19 25 10/04/2024 TSH TSH 2.670 uIU/m L 0.450- 4.500 normal Not Available [facility] ([facility]) [address] [place], [address], 10/04/2024 08:12:45 10/03/1910/04/2024 PROST ATE-S PECIF IC AG prostate specific Ag 5.0 NG/mL 0.0-4. 0 above high normal Magda [...] t be inter prete d as absol [place] evide nce of the prese nce or absen ce of emmy shaffer se. Not Available [facility] ([facility]) [address] [facility], [place], [address], 10/04/2024 08:12:46 10/03/1910/04/2024 VITAM IN D, 25-HY DROXY vitamin D, 25-hydroxy 36.3 NG/mL 30.0-1 00.0 Vitam in D defic iency has been [...] 1. IOM (Inst itute of Medic ine). 2010. Dieta ry refer ence intak es for calci um and D. Candelario marin [place]: The Natio nal [facility] Press . 2. Imtiaz VIDAL, Simran mcarthur [place], Damien off-F errar i CRUZ, et al. Evalu ation , treat ment, and preve ntion of vitam in D defic iency : an Endoc rine Socie ty clini sukhi pract ice guide line. JCEM. 2010; 96(7) :1911 -30. Not Available [facility] ([facility]) [address] [facility], [place], [address], 10/04/2024 08:12:46 10/03/1910/03/2024 HbA1c (hemo globi n A1c), blood HbA1c 6.3 Not Available [address], [address], 10/03/2024 11:20:19 03/10/20 25 03/10/2025 HbA1c (hemo globi n A1c), blood HbA1c 6.5 Not Available [address], [address], 03/10/2025 10:25:54 05/29/20 25 05/30/2025 FE+TI BC+FE R iron bind.cap.(TI BC) 254 ug/dL 250-45 0 normal Not Available [facility] ([facility]) [address] [facility], [place], [address], 05/30/2025 08:11:56 05/29/20 25 05/30/2025 FE+TI BC+FE R UIBC 114 ug/dL 111-34 3 normal Not Available [facility] ([facility]) [address] [facility], [place], [address], 05/30/2025 08:11:56 05/29/20 25 05/30/2025 FE+TI BC+FE R iron 140 ug/dL 38-169 normal Not Available [facility] ([facility]) [address] [place], [address], 05/30/2025 08:11:56 05/29/20 25 05/30/2025 FE+TI BC+FE R iron saturation 55 % 15-55 normal Not Available [facility] ([facility]) [address] [place], [address], 05/30/2025 08:11:56 05/29/20 25 05/30/2025 FE+TI BC+FE R ferritin 536 NG/mL 30-400 above high normal Not Available [facility] ([facility]) [address] [facility], [place], [address], 05/30/2025 08:11:56 05/29/20 25 05/30/2025 CBC WITH DIFFE RENTI AL/PL ATELE T WBC 7.0 x10e3 /uL 3.4-10 .8 normal Not Available [facility] ([facility]) [address] [facility], [place], [address], 05/30/2025 08:11:56 05/29/2005/30/2025 CBC WITH DIFFE RENTI AL/PL ATELE T RBC 4.88 x10e6 /uL 4.14-5 .80 normal Not Available [facility] ([facility]) [address] [place], [address], 05/30/2025 08:11:56 05/29/20 25 05/30/2025 CBC WITH DIFFE RENTI AL/PL ATELE T hemoglobin 15.6 g/dL 13.0-1 7.7 normal Not Available [facility] ([facility]) [address] [place], [address], 05/30/2025 08:11:56 05/29/20 25 05/30/2025 CBC WITH DIFFE RENTI AL/PL ATELE T hematocrit 48.0 % 37.5-5 1.0 normal Not Available [facility] ([facility]) [address] [place], [address], 05/30/2025 08:11:56 05/29/20 25 05/30/2025 CBC WITH DIFFE RENTI AL/PL ATELE T MCV 98 fL 79-97 above high normal Not Available [facility] ([facility]) [address] [place], [address], 05/30/2025 08:11:56 05/29/20 25 05/30/2025 CBC WITH DIFFE RENTI AL/PL ATELE T MCH 32.0 pg 26.6-3 3.0 normal Not Available [facility] ([facility]) [address] [place], [address], 05/30/2025 08:11:56 05/29/20 25 05/30/2025 CBC WITH DIFFE RENTI AL/PL ATELE T MCHC 32.5 g/dL 31.5-3 5.7 normal Not Available [facility] ([facility]) [address] [facility], [place], [address], 05/30/2025 08:11:56 05/29/20 25 05/30/2025 CBC WITH DIFFE RENTI AL/PL ATELE T RDW 12.8 % 11.6-1 5.4 Not Available [facility] ([facility]) [address] [place], [address], 05/30/2025 08:11:56 05/29/20 25 05/30/2025 CBC WITH DIFFE RENTI AL/PL ATELE T platelets 166 x10e3 /uL 150-45 0 normal Not Available [facility] ([facility]) [address] [place], [address], 05/30/2025 08:11:56 05/29/20 25 05/30/2025 CBC WITH DIFFE RENTI AL/PL ATELE T neutrophils 65 % not estab. normal Not Available [facility] ([facility]) [address] [place], [address], 05/30/2025 08:11:56 05/29/20 25 05/30/2025 CBC WITH DIFFE RENTI AL/PL ATELE T lymphs 22 % not estab. normal Not Available [facility] ([facility]) [address] [facility], [place], [address], 05/30/2025 08:11:56 05/29/20 25 05/30/2025 CBC WITH DIFFE RENTI AL/PL ATELE T monocytes 11 % not estab. normal Not Available [facility] ([facility]) [address] [facility], [place], [address], 05/30/2025 08:11:56 05/29/20 25 05/30/2025 CBC WITH DIFFE RENTI AL/PL ATELE T eos 1 % not estab. normal Not Available [facility] ([facility]) [address] [facility], [place], [address], 05/30/2025 08:11:56 05/29/20 25 05/30/2025 CBC WITH DIFFE RENTI AL/PL ATELE T basos 1 % not estab. normal Not Available [facility] ([facility]) [address] [facility], [place], [address], 05/30/2025 08:11:56 05/29/2005/30/2025 CBC WITH DIFFE RENTI AL/PL ATELE T immature cells CRA Not Available [facility] ([facility]) [address] [facility], [place], [address], 05/30/2025 08:11:56 05/29/20 25 05/30/2025 CBC WITH DIFFE RENTI AL/PL ATELE T neutrophils (absolute) 4.6 x10e3 /uL 1.4-7. 0 normal Not Available [facility] ([facility]) [address] [place], [address], 05/30/2025 08:11:56 05/29/20 25 05/30/2025 CBC WITH DIFFE RENTI AL/PL ATELE T lymphs (absolute) 1.5 x10e3 /uL 0.7-3. 1 normal Not Available [facility] ([facility]) [address] [facility], [place], [address], 05/30/2025 08:11:56 05/29/20 25 05/30/2025 CBC WITH DIFFE RENTI AL/PL ATELE T monocytes(ab solute) 0.8 x10e3 /uL 0.1-0. 9 normal Not Available [facility] ([facility]) [address] [facility], [place], [address], 05/30/2025 08:11:56 05/29/20 25 05/30/2025 CBC WITH DIFFE RENTI AL/PL ATELE T eos (absolute) 0.1 x10e3 /uL 0.0-0. 4 normal Not Available [facility] ([facility]) [address] [facility], [place], [address], 05/30/2025 08:11:56 05/29/20 25 05/30/2025 CBC WITH DIFFE RENTI AL/PL ATELE T baso (absolute) 0.0 x10e3 /uL 0.0-0. 2 normal Not Available [facility] ([facility]) [address] [facility], [place], [address], 05/30/2025 08:11:56 05/29/20 25 05/30/2025 CBC WITH DIFFE RENTI AL/PL ATELE T immature granulocytes 0 % not estab. Not Available [facility] ([facility]) [address] [facility], [place], [address], 05/30/2025 08:11:56 05/29/20 25 05/30/2025 CBC WITH DIFFE RENTI AL/PL ATELE T immature grans (abs) 0.0 x10e3 /uL 0.0-0. 1 Not Available [facility] ([facility]) [address] [facility], [place], [address], 05/30/2025 08:11:56 05/29/20 25 05/30/2025 CBC WITH DIFFE RENTI AL/PL ATELE T NRBC CRA Not Available [facility] ([facility]) [address] [facility], [place], [address], 05/30/2025 08:11:56 05/29/20 25 05/30/2025 CBC WITH DIFFE INDIO AL/PL ATELE T hematology comments: CRA Not Available [facility] ([facility]) [address] [facility], [place], [address], 05/30/2025 08:11:56 05/29/20 25 05/30/2025 COMP. METAB OLIC PANEL (14) glucose 69 mg/dL 70-99 below low normal Not Available [facility] ([facility]) [address] [facility], [place], [address], 05/30/2025 08:11:57 05/29/20 25 05/30/2025 COMP. METAB OLIC PANEL (14) BUN 12 mg/dL 8-27 normal Not Available [facility] ([facility]) [address] [facility], [place], [address], 05/30/2025 08:11:57 05/29/20 25 05/30/2025 COMP. METAB OLIC PANEL (14) creatinine 1.19 mg/dL 0.76-1 .27 normal Not Available [facility] ([facility]) [address] [facility] [place] [place], [address], 05/30/2025 08:11:57 05/29/20 25 05/30/2025 COMP. METAB OLIC PANEL (14) eGFR 59 mL/mi n/1.7 3 >59 below low normal Not Available [facility] ([facility]) [address] [facility] [place] [place], [address], 05/30/2025 08:11:57 05/29/20 25 05/30/2025 COMP. METAB OLIC PANEL (14) BUN/creatini ne ratio 10 10-24 normal Not Available [facility]) [address] [facility], [place], [address], 05/30/2025 08:11:57 05/29/20 25 05/30/2025 COMP. METAB OLIC PANEL (14) sodium 139 mmol/ L 134-14 4 normal Not Available [facility] ([facility]) [address] [facility] [place] [place], [address], 05/30/2025 08:11:57 05/29/20 25 05/30/2025 COMP. METAB OLIC PANEL (14) potassium 3.8 mmol/ L 3.5-5. 2 normal Not Available [facility] ([facility]) [address] [facility] [place] [place], [address], 05/30/2025 08:11:57 05/29/20 25 05/30/2025 COMP. METAB OLIC PANEL (14) chloride 99 mmol/ L 96-106 normal Not Available [facility] ([facility]) [address] [facility], [place], [address], 05/30/2025 08:11:57 05/29/20 25 05/30/2025 COMP. METAB OLIC PANEL (14) carbon dioxide, total 25 mmol/ L 20-29 normal Not Available [facility] ([facility]) [address] [facility], [place], [address], 05/30/2025 08:11:57 05/29/20 25 05/30/2025 COMP. METAB OLIC PANEL (14) calcium 9.8 mg/dL 8.6-10 .2 normal Not Available [facility] ([facility]) [address] [facility] [place] [place], [address], 05/30/2025 08:11:57 05/29/2005/30/2025 COMP. METAB OLIC PANEL (14) protein, total 6.6 g/dL 6.0-8. 5 normal Not Available [facility] ([facility]) [address] [facility] [place], [address], 05/30/2025 08:11:57 10/09/20 25 05/30/2025 COMP. METAB OLIC PANEL (14) albumin 4.5 g/dL 3.7-4. 7 normal Not Available [facility] ([facility]) [address] [facility] [place] [place], [address], 05/30/2025 08:11:57 05/29/20 25 05/30/2025 COMP. METAB OLIC PANEL (14) globulin, total 2.1 g/dL 1.5-4. 5 Not Available [facility] ([facility]) [address] [facility] [place] [place], [address], 05/30/2025 08:11:57 05/29/2005/30/2025 COMP. METAB OLIC PANEL (14) bilirubin, total 0.8 mg/dL 0.0-1. 2 normal Not Available [facility] ([facility]) [address] [facility] [place] [place], [address], 05/30/2025 08:11:57 05/29/20 25 05/30/2025 COMP. METAB OLIC PANEL (14) alkaline phosphatase 79 IU/L 48-129 normal Not Available [facility] ([facility]) [address] [facility] [place], [address], 05/30/2025 08:11:57 05/29/20 25 05/30/2025 COMP. METAB OLIC PANEL (14) AST (SGOT) 22 IU/L 0-40 normal Not Available [facility] ([facility]) [address] [facility] [place] [place], [address], 05/30/2025 08:11:57 05/29/20 25 05/30/2025 COMP. METAB OLIC PANEL (14) ALT (SGPT) 18 IU/L 0-44 normal Not Available [facility] ([facility]) [address] [facility] [place] [place], [address], 05/30/2025 08:11:57 10/09/05/30/2025 LIPID PANEL cholesterol, total 143 mg/dL 100-19 9 normal Not Available [facility] ([facility]) [address] [facility], [place], [address], 05/30/2025 08:11:58 05/29/20 25 05/30/2025 LIPID PANEL triglyceride s 117 mg/dL 0-149 normal Not Available [facility] ([facility]) [address] [facility], [place], [address], 05/30/2025 08:11:58 05/29/20 25 05/30/2025 LIPID PANEL HDL cholesterol 43 mg/dL >39 normal Not Available [facility] ([facility]) [address] [facility], [place], [address], 05/30/2025 08:11:58 05/29/20 25 05/30/2025 LIPID PANEL VLDL cholesterol sukhi 21 mg/dL 5-40 Not Available [facility] ([facility]) [address] [facility], [place], [address], 05/30/2025 08:11:58 05/29/20 25 05/30/2025 LIPID PANEL LDL chol calc ([facility]) 79 mg/dL 0-99 Not Available [facility] ([facility]) [address] [facility], [place], [address], 05/30/2025 08:11:58 05/29/20 25 05/30/2025 LIPID PANEL LDL calc comment: CRA Not Available [facility] ([facility]) [address] [facility], [place], [address], 05/30/2025 08:11:58 05/29/20 25 05/30/2025 VITAM IN B12 AND FOLAT E vitamin B12 397 pg/mL 232-12 45 normal Not Available [facility] ([facility]) [address] [place], [address], 05/30/2025 08:11:58 10/09/05/30/2025 VITAM IN B12 AND FOLAT E folate (folic acid), serum 5.6 NG/mL >3.0 normal A serum folat e hina ntrat ion of less than 3.1 ng/mL is consi dered to repre sent clini sukhi defic iency . Not Available [facility] ([facility]) [address] [facility], [place], [address], 05/30/2025 08:11:58 05/29/2005/30/2025 TSH TSH 1.590 uIU/m L 0.450- 4.500 normal Not Available [facility] ([facility]) [address] [facility], [place], [address], 05/30/2025 08:11:58 05/29/2005/30/2025 PROST ATE-S PECIF IC [...] t be inter prete d as absol [place] evide nce of the prese nce or absen ce of emmy pedroza se. Not Available [facility] ([facility]) [address] [facility], [place], [address], 05/30/2025 08:11:59 05/29/2005/30/2025 VITAM IN D, 25-HY [...] um and D. Candelario marin [place]: [facility] . 2. Imtiaz woodward [place], Simran mcarthru [place], Damien off-F errar i CRUZ, et al. Evalu ation , treat ment, and preve ntion of vitam in D defic iency : an Endoc rine Socie ty clini sukhi pract ice guide line. JCEM. 2010; 96(7) :1911 -30. Not Available [facility] ([facility]) [address] [facility], [place], [address], 05/30/2025 08:11:59 11/27/19 25 11/15/2024 exerc isperla buck s echoc ardio gram No observ ation record ed. [facility] [address], [place], [address], 12/06/2024 10:52:23 Result Notes None recorded. Problems Name Problem SNOMED Code Status Onset Date Resolution Date Notes Provider Name and Address Organization Details Recorded Time Pain in left knee Completed 201610/17/2016 Problem Code: M25.562; Problem Code Type: ICD-10; Not Available [facility] 21:01:52 Infected bursa 127992470 Completed 201612/02/2016 Problem Code: M71.162; Problem Code Type: ICD-10; Not Available [facility] 2 21:01:52 Bursitis 73406216 Completed 201612/02/2016 Problem Code: 727.3; Problem Code Type: ICD-9; Not Available [facility] 2 21:02:04 Knee pain Completed 201610/17/2016 Problem Code: 719.46; Problem Code Type: ICD-9; Not Available [facility] 2 21:02:07 Prolapse d lumbar interver tebral disc 503157276 Active 2016 Problem Code: M51.26; Problem Code Type: ICD-10; Not Available [facility] 2 21:01:52 Displace ment of lumbar interver tebral disc without myelopat hy 23041516 Completed 201602/19/2021 Problem Code: 722.10; Problem Code Type: ICD-9; Not Available [facility] 2 21:02:03 Hyperten sive disorder 78382674 Completed 201611/28/2017 Problem Code: I10; Problem Code Type: ICD-10; Not Available [facility] 2 21:01:50 Pain in right knee Completed 201607/02/2017 Problem Code: M25.561; Problem Code Type: ICD-10; Not Available [facility] 2 21:01:52 Pain in left knee Completed 201607/02/2017 Problem Code: M25.562; Problem Code Type: ICD-10; Not Available [facility] 2 21:02:01 Benign essentia l hyperten mary 0328602 Completed 201608/24/2017 Problem Code: 401.1; Problem Code Type: ICD-9; Not Available [facility] 2 21:02:02 Knee pain Completed 201607/02/2017 Problem Code: 719.46; Problem Code Type: ICD-9; Not Available [facility] 2 21:02:03 Chronic gouty arthriti s 00748863 Completed 201708/24/2017 Problem Code: M1A.0710 ; Problem Code Type: ICD-10; Not Available [facility] 2 21:01:51 Chronic gout without tophus 485566075 Completed 201708/24/2017 Problem Code: M1A.9XX0 ; Problem Code Type: ICD-10; Not Available [facility] 2 21:01:51 Pain in right knee Completed 201710/09/2017 Problem Code: M25.561; Problem Code Type: ICD-10; Not Available [facility] 2 21:01:52 Pain in left knee Completed 201710/09/2017 Problem Code: M25.562; Problem Code Type: ICD-10; Not Available [facility] 2 21:01:52 Low back pain 504846295 Completed 201710/09/2017 Problem Code: M54.5; Problem Code Type: ICD-10; Not Available [facility] 2 21:01:52 Knee pain Completed 201710/09/2017 Problem Code: 719.46; Problem Code Type: ICD-9; Not Available [facility] 2 21:02:04 Choleste rol screenin g Completed 201710/09/2017 Not Available [facility] 2 21:01:56 Hyperlip idemia screenin g Completed 201710/09/2017 Problem Code: V77.91; Problem Code Type: ICD-9; Not Available [facility] 2 21:02:05 Influenz a 2782871 Completed 201710/23/2017 Problem Code: J11.1; Problem Code Type: ICD-10; Not Available [facility] 2 21:01:50 Influenz a with non-resp iratory manifest ation 11516015 Completed 201710/23/2017 Problem Code: 487.8; Problem Code Type: ICD-9; Not Available [facility] 2 21:02:03 Influenz a 2443463 Completed 201712/11/2017 Problem Code: J10.1; Problem Code Type: ICD-10; Not Available [facility] 2 21:01:50 Acute bronchit is 86118159 Completed 201712/11/2017 Problem Code: J20.8; Problem Code Type: ICD-10; JASIEL schneider [facility] [employer] [facility]. 2 10:21:27 Influenz a with non-resp iratory manifest ation 57236026 Completed 201712/11/2017 Problem Code: 487.8; Problem Code Type: ICD-9; Not Available [facility] 2 21:02:04 Chronic gouty arthriti s 14638939 Completed 201705/21/2021 Problem Code: M1A.0710 ; Problem Code Type: ICD-10; Not Available [facility] 2 21:01:51 Uncontro lled type 2 diabetes mellitus 583226702 Completed 201705/20/2022 JASIELIZZY KAN [employer] 2 10:21:28 Localize d edema 624959767 Completed 201703/12/2018 Problem Code: R60.0; Problem Code Type: ICD-10; JASIEL KAN [employer] 2 10:21:27 Edema 484161176 Completed 201703/12/2018 Problem Code: 782.3; Problem Code Type: ICD-9; JASIEL KAN [employer] 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 2 10:21:27 Disorder of nervous system due to type 2 diabetes mellitus 673292883 Completed 201702/19/2021 Problem Code: 250.60; Problem Code Type: ICD-9; Not Available [facility] 2 21:02:00 Edema 281357072 Completed 201704/12/2018 Problem Code: 782.3; Problem Code Type: ICD-9; JASIEL [employer]. 2 10:21:27 Localize d edema 364118954 Completed 201705/20/2022 Problem Code: R60.0; Problem Code Type: ICD-10; JASIEL SIMONNER wyatt [employer] 2 10:21:27 Fracture of multiple ribs 8125214 Completed 201708/25/2020 Problem Code: S22.49XA ; Problem Code Type: ICD-10; Not Available [facility] 2 21:01:55 Edema 813524433 Completed 201705/20/2022 Problem Code: 782.3; Problem Code Type: ICD-9; JASIEL LUCIUS [employer], [employer] 2 10:21:27 Closed fracture of two ribs 7233559 Completed 201702/19/2021 Problem Code: 807.02; Problem Code Type: ICD-9; Not Available [facility] 2 21:02:05 Chronic gouty arthriti s 69131371 Completed 201705/21/2021 Problem Code: M1A.0710 ; Problem Code Type: ICD-10; Not Available [facility] 2 21:01:51 Abnormal weight gain 070011650 Completed 201707/28/2018 Problem Code: R63.5; Problem Code Type: ICD-10; Not Available [facility] 2 21:01:54 Chronic gouty arthriti s 83616101 Active 2017 Problem Code: M1A.0710 ; Problem Code Type: ICD-10; Not Available [facility] 2 21:01:59 Acute bronchit is 32750544 Completed 201805/20/2022 Problem Code: J20.9; Problem Code Type: ICD-10; JASIEL SIMONRUBY schneider, [employer] 2 10:21:27 Hypothyr oidism 40347208 Active 2018 Not Available [facility] 2 21:01:49 Screenin g for malignan t neoplasm of prostate Completed 201805/20/2022 Problem Code: Z12.5; Problem Code Type: ICD-10; JASIEL schneider, [employer] 2 10:21:28 Body mass index 30+ - obesity 334338109 Completed 201808/25/2020 Problem Code: Z68.30; Problem Code Type: ICD-10; JASIEL schneider, [employer] 2 10:21:27 Allergic contact dermatit is caused by plant material 16215588273 096477 Completed 201905/20/2022 Problem Code: L23.7; Problem Code Type: ICD-10; JASIEL schneider, [employer] 2 10:21:27 General examinat ion of patient Completed 201905/20/2022 JASIEL shcneider, [employer] 2 10:21:27 Body mass index 25-29 - overweig 677747561 Completed 201905/20/2022 Problem Code: Z68.29; Problem Code Type: ICD-10; JASIEL schneider, [employer] 2 10:21:27 Itching 682674925 Completed 201905/20/2022 Problem Code: L29.9; Problem Code Type: ICD-10; JASIEL schneider, [employer] 2 10:21:28 Eruption 639504927 Completed 201905/20/2022 Problem Code: R21; Problem Code Type: ICD-10; JASIEL schneider, [employer] 2 10:21:27 Body mass index 25-29 - overweig 945024173 Completed 201908/25/2020 Problem Code: Z68.29; Problem Code Type: ICD-10; JASIEL schneider, [employer] 2 10:21:27 Influenz a vaccine needed 27536086480 06 Completed 201908/25/2020 Problem Code: Z23; Problem Code Type: ICD-10; JASIEL KAN null, [employer] 10:21:27 Nicotine dependen ce 68453867 Active 2020 Problem Code: F17.200; Problem Code Type: ICD-10; Not Available [facility] 21:01:49 Body mass index 30+ - obesity 287595677 Completed 202009/24/2020 Problem Code: Z68.32; Problem Code Type: ICD-10; JASIEL KAN null, [employer] 10:21:27 Tingling of skin 006716760 Completed 202005/20/2022 Problem Code: R20.2; Problem Code Type: ICD-10; JASIEL KAN null, [employer] 10:21:27 Body mass index 30+ - obesity 897734099 Completed 202005/20/2022 Problem Code: Z68.30; Problem Code Type: ICD-10; JASIEL LUCIUS null, [employer] 10:21:27 Acute pharyngi tis 671984065 Completed 202005/20/2022 JASIELIZZY KAN null, [employer] 10:21:27 Acute respirat ory infectio ns 939979422 Completed 202005/20/2022 Problem Code: J22; Problem Code Type: ICD-10; JASIEL KAN null, [employer] 10:21:27 Cough 70540787 Completed 202012/24/2020 Problem Code: R05; Problem Code Type: ICD-10; Not Available [facility] 21:01:52 Cough 79074547 Completed 202012/24/2020 Problem Code: R05; Problem Code Type: ICD-10; Not Available [facility] 21:01:53 Dyspnea 093531413 Completed 202002/19/2021 Problem Code: R06.02; Problem Code Type: ICD-10; Not Available [facility] 21:01:53 Cough 37991138 Completed 202002/19/2021 Problem Code: R05; Problem Code Type: ICD-10; Not Available [facility] 21:01:53 Dysphagi a 09764595 Completed 202005/20/2022 JASIELIZZY KAN [employer] 10:21:28 Hyperten sive disorder 41646549 Active 2020 Problem Code: I10; Problem Code Type: ICD-10; Not Available [facility] 21:01:49 Noninfec tious gastroen teritis 82423498 Completed 202005/20/2022 JASIEL KAN Rockwell Collins, [facility] 10:21:27 Influenz a vaccine needed 20283925882 06 Completed 202005/20/2022 Problem Code: Z23; Problem Code Type: ICD-10; JASIEL KAN Rockwell Collins, [facility] 10:21:27 Current drug user 500726364 Active 2020 Problem Code: Z79.899; Problem Code Type: ICD-10; Not Available [facility] 21:02:00 Body mass index 30+ - obesity 013574338 Completed 202102/17/2022 Problem Code: Z68.30; Problem Code Type: ICD-10; JASIELIZZY KAN Rockwell [employer], [employer] 10:21:27 Type 2 diabetes mellitus without complica tion 312976332 Active 2021 Not Available [facility] 21:01:49 Body mass index 25-29 - overweig ht 982186407 Completed 202102/17/2022 Problem Code: Z68.29; Problem Code Type: ICD-10; JASIEL KAN Rock[employer], [employer] 2 10:21:27 Essentia l hyperten mary 95505754 Active 2021 Cullen Manzano DO [address] [place] [address], [address] , [employer] 2 08:19:59 Diabetes mellitus 27689884 Active 2023 Sadie schneider, [employer] 4 13:26:58 Well controll ed type 2 diabetes mellitus 166048159 Active 2024 Sadie schneider, [employer] 5 10:25:51 Problem Notes None recorded. [...] Available Not Available Not Available Fluzone High-Dose 6848-0256 (PF) 180 mcg/0.5 mL intramusc ular syringe [...] Details Last Updated DateTime 5 172.72 cm 28 kg/m2 97852 g 58 /min 92 % 132/70 mm[Hg] Sadie [employer]ED. 5 11:20:46 Date Recorded Body height Body mass index (BMI) Body weight Heart rate Oxygen saturation Systolic And Diastolic Provider Name and Address Organization Details Last Updated DateTime 5 172.72 cm 27.2 kg/m2 63277.0 3 g 60 /min 94 % 133/70 mm[Hg] [employer] 5 10:33:03 Date Recorded Body height Body mass index (BMI) Body weight Heart rate Oxygen saturation Body temperature Systolic And Diastolic Provider Name and Address Organization Details Last Updated DateTime 5 172.72 cm 25.8 kg/m2 78746.7 g 60 /min 96 % 98 [degF] 137/82 mm[Hg] Sadie [employer] 5 17:07:54 Date Recorded Body height Body mass index (BMI) Body weight Heart rate Oxygen saturation Systolic And Diastolic Provider Name and Address Organization Details Last Updated DateTime 5 172.72 cm 25.1 kg/m2 27028.7 4 g 53 /min 95 % 136/87 mm[Hg] Sadie [employer] 5 09:01:09 Date Recorded Body height Body mass index (BMI) Body weight Heart rate Oxygen saturation Systolic And Diastolic Provider Name and Address Organization Details Last Updated DateTime 4 172.72 cm 28 kg/m2 48964.4 g 96 /min 94 % 136/76 mm[Hg] [facility] 4 11:10:35 Social History Question Answer Notes LastModified by Organizat ion Details LastModified Time Tobacco Smoking Status Never Smoker JASIEL schneider [employer]. 05/20/2022 10:23:47 Is Your Home Air Conditioned? Yes Information not available 03/10/2023 Are You Blind Or Do You Have Difficulty Seeing? No [email or web address] Information n ot available 05/20/2022 Are You [...] Do You Have Serious Difficulty Hearing? No Information not available 05/20/2022 What Type Of Diet Are You Following? REGULAR Information n ot available 07/26/2023 Have There Been Any Changes To Your Family Or Social Situation? No Information no t available 03/10/2023 What Was The Date Of Your Most Recent Tobacco Screening? 05/29/2025 Information not available 05/29/2025 What Is Your Relationship Status? [email or web address] Information not available 05/20/2022 Do You Use [...] Have Difficulty Walking Or Climbing Stairs? No [email or web address] Information not available 05/20/2022 Are You Currently In School? No [email or web address] Information not available 05/20/2022 Do You Have Any Dietary Restrictions? No Information not available 07/26/2023 Sex: Male Functional Status Question Answer Note LastModified by Organizat ion Details LastModified Time What is your level of alcohol consumption? None [email or web address] Information not available 05/20/2022 Do you or have you ever used smokeless tobacco? Current snuff user [email or web address] Information not available 05/20/2022 Do you have transportation difficulties? No [email or web address] Information not available 05/20/2022 Are you able to walk independently without assistance or assistive devices? YESWOREST [email or web address] Information not available 05/20/2022 Do you have difficulty doing errands alone? No [email or web address] Information not available 05/20/2022 Are you able to care for yourself independently? Yes Information not available 05/20/2022 Do you have difficulty dressing, bathing, grooming, or toileting? No [email or web address] Information not available 05/20/2022 Mental Status Question Answer Note LastModified by Organization D etails LastModified Time Do you have difficulty concentrating, remembering or making decisions? No [email or web address] Information no t available 05/20/2022 Family History Relationship Description Onset Age of this Age Resolved Age Notes LastModified by Organization Details LastModified Time Son Family history of malignant neoplasm [email or web address] Not available 05/20 10:22:48 Unspecified Relation Family history of Myocardial infarction [email or web address] Not available 04/23 10:21:57 Unspecified Relation Family history of Ulcerative colitis [email or web address] Not available 05/20 10:22:25 Father No current problems or disability [email or web address] Not available 04/23 10:22:58 Mother No current problems or disability [email or web address] Not available 04/23 10:22:58 Medical History Condition Response Diabetes Y Gout Y Hypertension Y Immunizations Vaccine Type Date Status Note Provider Nam e and Address Organization Details Recorded Time Influenza, high-dose, quadrivalent, PF 3 completed Roselia Brady APRN [address] [place], [address], [employer] 05/23/2023 11:21:26 COVID-19, mRNA, LNP-S, PF, tamar-sucrose, 30 mcg/0.3 mL 3 completed Sadie schneider, [employer] 06/30/2023 17:52:04 Influenza, split virus, quadrivalent, PF 2 completed Roselia Brady APRN [address] [place], [address], [employer] 06/06/2022 13:21:34 Pneumococcal conjugate PCV 13 0 completed Not Available [facility] 04/26/2022 23:26:56 COVID-19, mRNA, LNP-S, PF, 100 mcg/0.5mL dose or 50 mcg/0.25mL dose 1 completed Sadie schneider, [employer] 05/29/2025 08:55:03 COVID-19, mRNA, LNP-S, PF, 100 mcg/0.5mL dose or 50 mcg/0.25mL dose 1 completed Sadie schneider, [employer] 05/29/2025 08:55:03 Influenza, split virus, quadrivalent, preservative 8 completed Not Available [facility] 04/26/2022 23:26:57 Influenza, split virus, quadrivalent, PF 1 completed Not Available [facility] 04/26/2022 23:26:57 Influenza, split virus, quadrivalent, preservative 0 completed Not Available [facility] 04/26/2022 23:26:59 Influenza, high-dose, trivalent, PF 4 completed Marie Trujillo, HUANG [address] [place], [address], [employer] 06/12/2024 13:18:09 COVID-19, mRNA, LNP-S, PF, tamar-sucrose, 30 mcg/0.3 mL 4 completed Roselia Brady APRN [address] [place], [address], [employer] 06/18/2024 12:40:38 Influenza, high-dose, trivalent, PF 5 completed Sadie schneider, [employer] 05/29/2025 11:22:05 COVID-19, mRNA, LNP-S, PF, 100 mcg/0.5mL dose or 50 mcg/0.25mL dose 1 completed Not Available [facility] 05/29/2025 08:54:48 COVID-19, mRNA, LNP-S, PF, 100 mcg/0.5mL dose or 50 mcg/0.25mL dose 2 completed Not Available [facility] 05/29/2025 08:54:48 COVID-19, mRNA, LNP-S, bivalent, PF, 50 mcg/0.5 mL or 25mcg/0.25 mL dose 2 completed Not Available [facility] 05/29/2025 08:54:48 Influenza, split virus, quadrivalent, preservative 9 completed Sadie schneider [facility], [facility] 05/29/2025 08:55:03 Past Encounters Encounter ID Performer Location Encounter Start Date Encounter Closed Date Diagnosis/Indication Diagnosis SNOMED-CT Code Diagnosis ICD10 Code Diagnosis IMO Codes Diagnosis Note [id number] Roselia Brady[address] 05/20/2022 10:05:22 05/20/2022 10:49:35 Type 2 diabetes mellitus without complication 782708916 E11.9 Chronic go uty arthritis 72669932 M1A.0710 Hypertensive disorder 38 830991 I10 [id number] [place] [address] 06/06/2022 09:16:55 06/06/2022 09:28:03 Administration of influenza vaccine 63925260 Z23 [id number] [place] [address] 08/23/2022 10:52:21 08/23/2022 11:25:38 Type 2 diabetes mellitus without complication 530616086 E11.9 Hypertensive disorder 38 252093 I10 Body mass index 25-29 - overweight 931529772 Z68.28 [id number] Roselia Brady [address] [address] 11/18/2022 10:37:11 11/18/2022 11:06:28 Essential hypertension 90499284 I10 Gastroesop hageal reflux disease without esophagitis 941496997 K21.9 Hypothyroidism 52061242 E03.9 Type 2 parisa betes mellitus without complication 064674114 E11.9 Body mass index 25-29 - overweight 447197850 Z68.28 [id number] Roseliastarla Brady [address] [place] [address] 03/10/2023 07:55:21 03/10/2023 08:54:01 Type 2 diabetes mellitus without complication 004452175 E11.9 Hypothyroidism 25916014 E03.9 Hypertensive disorder 38 270447 I10 Hyperlipidemia 84441458 E78.5 Gastroesop hageal reflux disease without esophagitis 252333613 K21.9 Essential hypertension 01136540 I10 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 525433752 E11.41 Body mass index 25-29 - overweight 159580710 Z68.28 [id number] [place] [address] 05/23/2023 09:35:39 05/23/2023 10:04:35 Administration of influenza vaccine 19345221 Z23 [id number] [place] [address] 06/20/2023 10:40:38 06/20/2023 11:44:14 Type 2 diabetes mellitus without complication 599559345 E11.9 Chronic go uty arthritis 08420567 M1A.0710 Unsteady when walking 22 734495 R26.89 Carotid ar sarika occlusion 387635869 I65.29 Body mass index 25-29 - overweight 474888165 Z68.28 [id number] Brigitte Mendez [place] [address] 06/30/2023 11:41:37 06/30/2023 12:09:54 Active or passive immunization 789668485 Z23 [id number] [place] [address] 07/18/2023 09:15:47 07/18/2023 11:21:30 Essential hypertension 92451873 I10 gave pt clonidine 0.1mg tablet in off today at 1000 07/18/23 Headache [id number] R51.9 pt went to ER 07/18/23 Body mass index 25-29 - overweight 690745703 Z68.28 [id number] Brigitte Mendez, [place] [id number] 07/26/2023 14:10:09 07/26/2023 15:02:48 Dysuria 77862206 R30.0 Reassuranc e. His exam is benign and his urine is NEG for UTI. He should continue fluids avoiding caffeine and monitor his temp, BP , and glucose t home if he develops further chills. Chill [id number] R68.83 [id number] Roselia Brady [place] [id number] 09/19/2023 10:15:42 09/19/2023 11:22:59 Diabetes mellitus 39788627 E11.9 Long-term drug therapy [id number] Z79.899 Hypertensive disorder 38 588684 I10 Hypothyroidism 83093077 E03.9 Hyperlipidemia 57209528 E78.5 Nocturia 959727443 R35.1 Body mass index 25-29 - overweight 929774152 Z68.28 [id number] Roselia Brady [place] [id number] 12/19/2023 09:54:32 12/19/2023 10:58:46 Diabetes mellitus 74195686 E11.9 Fatigue 01977811 R53.83 Hyperlipidemia 10407940 E78.5 Hypothyroidism 82216057 E03.9 Body mass index 25-29 - overweight 251917846 Z68.28 [id number] Roselia Brady [place] [id number] 03/19/2024 13:14:05 03/19/2024 15:01:29 Diabetes mellitus 77081044 E11.9 Hypertensive disorder 38 897474 I10 Hypothyroidism 10862939 E03.9 Type 2 parisa betes mellitus without complication 675591667 E11.9 Body mass index 25-29 - overweight 629478343 Z68.28 [id number] Marie Trujillo [place] [id number] 06/12/2024 10:11:43 06/12/2024 11:09:13 Administration of influenza vaccine 04128114 Z23 [id number] [place] [id number] 06/18/2024 10:33:07 06/18/2024 11:46:29 Type 2 diabetes mellitus without complication 732221762 E11.9 Administra tion of SARS-CoV-2 antigen vaccine 753985990 Z23 Hypothyroidism 09470118 E03.9 Essential hypertension 05532166 I10 Body mass index 25-29 - overweight 607190732 Z68.28 [id number] Roselia Brady [place] [id number] 10/03/2024 10:34:13 10/03/2024 11:47:24 Type 2 diabetes mellitus without complication 576137448 E11.9 Fatigue 90391193 R53.83 Hyperlipidemia 45330815 E78.5 Nocturia 021294766 R35.1 Vitamin D deficiency 347 78045 E55.9 Vitamin B deficiency 479 12829 E53.9 Body mass index 25-29 - overweight 269882139 Z68.28 [id number] Roselia Brady [place] [id number] 03/10/2025 10:13:13 03/10/2025 11:08:24 Well controlled type 2 diabetes mellitus 138719451 E11.9 172500 Essential hypertension 55454106 I10 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 738611161 E11.41 Type 2 parisa betes mellitus without complication 147184958 E11.9 Overweight in adulthood with body mass index of 25 or more but less than 30 973825466 Z68.27 916183 [id number] Roselia Brady [place] [id number] 04/29/2025 16:55:55 04/29/2025 17:24:45 Acute bacterial sinusitis 93141813 J01.90 B96.89 95931 Overweight in adulthood with body mass index of 25 or more but less than 30 038178273 Z68.25 [id number] Roselia Brady APRN [facility] [address] [place] [address] 05/29/2025 08:40:41 05/29/2025 09:26:01 Fatigue 86103257 R53.83 8917223 Mixed hyperlipidemia 267 952603 E78.2 58880 Vitamin D deficiency 347 75673 E55.9 23553 Cobalamin deficiency 190 288430 E53.8 83400 Iron defic iency anemia 69366233 D50.9 08439936 Nocturia 555550015 R35.1 50022 Active immunization 3387 9002 Z23 30762160 Unintentio nal weight loss 932047102 R63.4 298529 Overweight in adulthood with body mass index of 25 or more but less than 30 755083492 Z68.25 604188 Health Concerns Section Related Observation LastModified by Organization Detai ls LastModified Time None Recorded Concern Status LastModified by Organization Details LastModified Time None Recorded Advance Directives Directive None Recorded Payers Insurance Date Sequence Insurance Name Policy Number Policy Russell Covered Member ID Russell Member ID Guarantor Name 05/30/2025 SLIDING FEE SCHEDULE - DISCOUNT Miguel Piper 05/29/2025 1 [employer] (MEDICARE REPLACEMENT/A DVANTAGE - PPO) [id number] Miguel Swenson [place] [id number] Miguel Piper 05/29/2025 [place]IC[place] [employer] | [employer] [facility] [id number] Miguel Swenson [place] [id number] Miguel Piper Notes Date Note Type Note Provider Name and Address Organization Details Recorded Time 06/18/2024 text/html pt here today for a 3 month f/u. pt states he doesnt need any refills on meds but is doing well on current medication regime and has no new complaints today. A1C 6.3, 6.3 at last visit. pt to continue current medication regime, diabetic diet and exercise. Roselia Brady APRN [address] [place] [address], [place], [address], [facility] 06/18/2024 12:45:02 10/03/2024 text/html 84 year old male here for chronic disease f/u. Denies acute concerns at this time. States he takes all medication as prescribed without AE. Todays A1C 6.3. Will continue current medication regimen and repeat labs. Pt agrees with Martir seen at neurology on 09/25 for f/u on CRUZ and neurological changes. Denies changes made at this appointment and plan to repeat carotid duplex annually. Roselia Brady APRN [address] [place], [address], [employer] 10/03/2024 15:20:45 03/10/2025 text/html pt here today for medication refills. pt states hes doing well on current medication regime and has no new complaints today. A1C 6.5. pt to continue current medication regime, diabetic diet and exercise. Rsoelia Brady APRN [address] [place], [address], [employer]. 03/10/2025 11:39:37 04/29/2025 text/html pt here today with c/o sinus symptoms, headache and cough for around 2 weeks. pt has not taken any OTC meds and denies any ill contacts. on exam, ears with fluid, sinuses tender, throat dry, lungs clear. ordered abx. educated pt on new med. pt voiced understanding. increase fluids. return for worsening symptoms. Roselia Brady APRN [address] [place], [address], [employer] 04/29/2025 17:41:59 05/29/2025 text/html pt here today for medication [...] well. pt voiced understanding. Roselia Brady APRN [address] [place], [address], [employer] 05/29/2025 16:57:44"
--- OUTSIDE RECORDS SUMMARY | 2025-07-12 09:29 | XMS_ITS | Clinical Summary ---
Author Organization Healthcare Address [address] [place] [address] Care Team Providers Care Collar Setter Name Role Phone Jackelyn Thompson MIRANDA Primary Care Provider [phone] Family History Medical History Relation Name Comments Conversions - Other Other Back pro blem Relation Name Status Comments Other Social History Tobacco Use Types Packs/Day Years Used Date Smoking Tobacco: Never Alcohol Use Standard Drinks/Week Comments No 0 (1 standard drink = 0.6 oz pur e alcohol) Sex and Gender Information Value Date Recorded Sex Assigned at Not on file Legal Sex Male 7:18 PM EDT Gender Identity Not on file Sexual Orientation Not on file Last Filed Vital Signs Vital Sign Reading Time Taken Comments Blood Pressure - - Pulse - - Temperature - - Respiratory Rate - - Oxygen Saturation - - Inhaled Oxygen Concentration - - Weight 83.9 kg (185 lb 0.2 oz) 03/29/2016 1:01 P M EDT Height 172.7 cm (5' 8 ) 03/29/2016 1:01 PM EDT Body Mass Index 28.13 03/29/2016 1:01 PM EDT Plan of Treatment Health Maintenance Due Date Last Done Comments [facility]-Depression Screening 1938 [facility]-Medicare Annual Wellness (AWV) 1938 [facility]-/Child/Adol SDOH Screenings 1940 [facility]- SDOH Screenings 02/16/1956 [facility]-Adult SDOH Screenings 02/16/1956 [facility]-DTaP,Tdap,and Td Vaccines (1 - Tdap) 1957 [facility]-Zoster Vaccines (1 of 2) 02/16/1988 [facility]-RSV Vaccine: 60+ Years or (1 - 1-dose 75+ series) 2013 [facility]-Pneumococcal Vaccine: 50+ Years (2 of 2 - PCV20 or PCV21) 02/24/2021 02/25/2020 [id number] Vaccine ( season) 2025 06/28/2022, 11/25/2021, 06/03/2021, Additional history exists [facility]-Influenza Vaccine (#1) 04/21/202506/06, 05/24/2021, 06/05/2020, Additional history exists HPV Vaccines Aged Out No longer eligi ble based on patient's age to complete this topic [facility]-HIB Vaccines Aged Out No longer e ligible based on patient's age to complete this topic [facility]-Hepatitis A Vaccines Aged Out No longer eligible based on patient's age to complete this topic [facility]-IPV Vaccines Aged Out No longer e ligible based on patient's age to complete this topic [facility]-Rotavirus Vaccines Aged Out No lo nger eligible based on patient's age to complete this topic Insurance [employer] MEDICARE Care Teams Collar Setter Relationship Specialty Start Date End Date Jackelyn Thompson APRN [address] [place] [address] PCP - General 01/01/21
[2025-07-12 09:31] VITALS: BP 173/150; PULSE 61; O2SAT 96
--- NOTE | 2025-07-12 09:51 | XR_ITS ---
PROCEDURE INFORMATION: Exam: XR Lumbosacral Spine Exam date and time: 07/12/2025 10:34 AM Age: 85 years old Clinical indication: Low back pain; Additional info: Pain, mid lumbar spine, no trauma TECHNIQUE: Imaging protocol: Radiologic exam of the lumbosacral spine. Views: 2 or 3 views. Total images: 3 COMPARISON: CR XR KUB 08/08/2023 1:27 AM FINDINGS: Bones/joints: Rightward curvature of the lumbar spine with degenerative changes. Moderate disc space narrowing noted L4-L5 and L5-S1. Vertebral heights are maintained. Soft tissues: Unremarkable. Gastrointestinal tract: Bowel gas pattern is nonobstructive and nonspecific. Large amount of stool is present throughout the colon. IMPRESSION: 1. Rightward curvature of the lumbar spine with degenerative changes. 2. Moderate disc space narrowing noted L4-L5 and L5-S1.
--- NOTE | 2025-07-12 09:58 | HMH.EDGENADL ---
Discharge Plan Disposition Patient Disposition: Home, Self-Care Prescriptions Prescriptions: New lidocaine 5 % adhesive patch,medicated 1 patch topical DAILY Qty: 15 0RF Rx Instructions: leave on most painful area for up to 12 hrs No Action atorvastatin 40 mg tablet 40 mg PO HS Qty: 90 3RF Ozempic 0.25 mg or 0.5 mg (2 mg/3 mL) pen injector 0.25 mg SQ QWEEK Patient Comments: inject 0.25 MG subcutaneously ONCE WEEKLY glipizide 10 mg tablet 10 mg PO BID lisinopril 40 mg tablet 40 mg PO DAILY Qty: 90 3RF omeprazole 40 mg capsule,delayed release(DR/EC) 40 mg PO DAILY hydrochlorothiazide 12.5 mg tablet 12.5 mg PO DAILY Qty: 90 3RF allopurinol 300 MG tablet 300 mg PO DAILY clopidogrel 75 mg tablet 75 mg PO DAILY Qty: 60 0RF aspirin 81 mg Tablet,Delayed Release (Dr/Ec) 81 mg PO DAILY levothyroxine [Synthroid] 25 mcg Tablet 25 mcg PO DAILYDM Qty: 0 0RF clonidine HCl 0.1 mg tablet 0.1 mg PO BID amitriptyline 50 mg tablet 50 mg PO HS gabapentin 300 mg capsule 300 mg PO TID amlodipine 10 mg tablet 20 mg PO DAILY metoprolol succinate 50 mg tablet extended release 24 hr 50 mg PO BID polyethylene glycol 3350 [Miralax] 17 gram/dose powder 17 g PO .q4 PRN (Reason: constipation) Qty: 850 0RF empagliflozin 25 MG tablet 25 mg PO DAILY ondansetron HCl 4 mg tablet 4 mg PO Q8H PRN (Reason: nausea and vomiting) 5 Days Qty: 30 0RF Referrals Follow up/Referrals: Roselia Brady APRN [Primary Care Provider, Medical] - See instructions Activity Restrictions/Add. Instructions Additional Instructions/Restrictions: You likely have a pulled muscle in your back. Encouraged to continue taking Tylenol if needed. I am also prescribing lidocaine patches to help with your symptoms. If you develop any new or worsening symptoms, or if you become concerned for your health for any reason, return to the emergency department for evaluation. I do encourage you to follow-up with your primary care doctor early next week if symptoms have not improved over the weekend. Clinical Impressions Clinical Impression: Low back pain Instructions Patient Instructions: DI for Low Back Pain Print Language Print Language: Croatian Discharge ED Provider: Humberto Syed General Adult HPI General Chief complaint: Back Pain/Injury Stated complaint: back pain Time Seen by Provider: 07/12/25 09:47 Mode of Arrival: Ambulatory Source of Information: Patient Description of Symptoms (Recalled from ER Triage Doc. by RN): pt presents to the ED with lower back pain that radiates to his hips. pt reports 5 days ago he was going to roll out of bed when he felt his back catch . pt states that he has been able to sleep in bed from the pain. Denies chest pain and shortness of breath. History of Present Illness HPI narrative: Miguel Saldaña is an 85-year-old male with a history of hypertension, diabetes, hypothyroidism, hyperlipidemia 5 days of mid lower back pain. Who presents to the emergency department for complaints of 5 days of mid lower back pain after twisting to get out of bed and felt his back catch . Since then, he states that he feels like his back is catching and has pain in the middle of his lumbar spine. He denies any numbness, tingling, weakness. He has been ambulatory without difficulty. He denies any difficulty urinating or urinary retention. He denies any changes in his bowel habits. He denies any numbness or tingling in his genital region. Related Data Home Medications ?Medication ?Instructions ?Recorded ?Confirmed allopurinol 300 mg tablet 300 mg PO DAILY GOUT 04/04/18 10/29/24 glipizide 10 mg tablet 10 mg PO BID Diabetes 01/25/21 10/29/24 empagliflozin 25 mg tablet 25 mg PO DAILY Diabetes 03/05/21 10/29/24 aspirin 81 mg tablet,delayed 81 mg PO DAILY CIRCULATION 06/17/23 10/29/24 release amitriptyline 50 mg tablet 50 mg PO HS 07/18/23 10/29/24 clonidine HCl 0.1 mg tablet 0.1 mg PO BID 07/18/23 10/29/24 gabapentin 300 mg capsule 300 mg PO TID 07/18/23 10/29/24 amlodipine 10 mg tablet 20 mg PO DAILY 07/22/23 10/29/24 metoprolol succinate 50 mg 50 mg PO BID 10/30/23 10/29/24 tablet,extended release 24 hr omeprazole 40 mg capsule,delayed 40 mg PO DAILY 10/30/23 10/29/24 release semaglutide 0.25 mg or 0.5 mg (2 0.25 mg SQ QWEEK 05/01/24 10/29/24 mg/3 mL) subcutaneous pen injector (Ozempic) Previous Rx's ?Medication ?Instructions ?Recorded clopidogrel 75 mg tablet 75 mg PO DAILY #60 tabs 06/14/23 levothyroxine 25 mcg tablet 25 mcg PO DAILYDM #0 tabs 06/17/23 (Synthroid) lisinopril 40 mg tablet 40 mg PO DAILY #90 tabs 06/21/23 atorvastatin 40 mg tablet 40 mg PO HS Cholesterol #90 tabs 07/24/23 ondansetron HCl 4 mg tablet 4 mg PO Q8H PRN nausea and 08/03/23 vomiting 5 days #30 tabs polyethylene glycol 3350 17 17 g PO .q4 PRN constipation #850 08/08/23 gram/dose oral powder (Miralax) grams hydrochlorothiazide 12.5 mg tablet 12.5 mg PO DAILY #90 tabs 11/29/24 lidocaine 5 % topical patch 1 patch topical DAILY #15 ea 07/12/25 Allergies Allergy/AdvReac Type Severity Reaction Status Date / Time No Known Allergies Allergy Verified 10/29/24 09:13 [facility] Disclaimer: The information contained in this section may have been updated after the patient was seen, as this information can be updated by other users. Medical History (Updated 07/12/25 @ 11:27 by Humberto Syed MD) Dizziness Elevated serum creatinine Bilateral carotid artery stenosis Hyperlipidemia Diabetes Hypothyroidism Hypertension Surgical History No pertinent past surgical history Social History Smoking Status: Never smoker alcohol intake: never substance use type: denies use current occupational status: other Travel in the last 8 weeks?: None caffeine: No Have you lived/traveled outside US in past 30 days?: No Contact w/someone who lives/traveled outside US past 30 days?: No Exposure to someone with infectious disease in past 14 days?: No Do you have a fever (greater than 100.4 F or 38 C)?: No Have you tested positive for COVID-19?: No Exposed to someone with COVID-19 in past 14 days?: No Do you have a sore throat?: No Do you have a cough?: No Do you have any weakness?: No Do you have any diarrhea?: No Are you experiencing any unusual bleeding?: No Do you have any muscle aches/pain?: No Do you have any abdominal pain?: No Are you experiencing loss of taste or smell?: No Other Medical History Have you received the Flu Vaccine for this season: No Have you received the Pneumonia Vaccine: Yes ROS Obtained: Yes Systems reviewed as appropriate & no additional complaints except as documented Physical Exam General General appearance: alert and in no apparent distress Head Head exam: atraumatic Eye Eye exam: Present normal appearance ENT ENT exam: Present normal external ear exam Neck Neck exam: Present full ROM Chest Chest inspection: Present symmetric chest wall rise Respiratory Respiratory exam: Present normal lung sounds bilaterally; Absent respiratory distress, wheezes or stridor Cardiovascular Cardiovascular exam: Present regular rate and normal rhythm Abdominal Exam Abdominal exam: Present soft; Absent tenderness or guarding exam: Present deferred Extremities Exam Extremities exam: Present normal inspection and full ROM Back Exam Back exam: Present normal inspection; Absent tenderness, paraspinal tenderness or vertebral tenderness (No midline lumbar or thoracic spine tenderness) Neurological Exam Neurological exam: Present alert, oriented X3 and other (5 out of 5 strength in bilateral lower extremities with hip flexion and extension, knee flexion and extension. Sensation 5 out of 5 to bilateral lower extremities.) Psychiatric Psychiatric exam: Present normal affect Skin Skin exam: Present warm and dry Medical Decision Making Medical Records Screening: Per USPSTF and CDC recommendations, given the prevalence of disease in our region, it is our hospital?s policy to screen for HIV and viral Hepatitis for all patients aged 18 and over and those with ongoing risk factors. Jemal Inquiry Pt receiving controlled substance: No Vital Signs: 07/12/25 09:22 07/12/25 09:22 07/12/25 09:31 Temperature 98 F 98 F Temperature Source Oral Oral Pulse Rate 67 61 Pulse Rate [Right] 67 Respiratory Rate 16 16 Blood Pressure 166/81 H 173/150 H Blood Pressure [Right Arm] 166/81 H Blood Pressure Mean [Right Arm] 109 Blood Pressure Source Automatic Cuff Blood Pressure Source [Right Arm] Automatic Cuff Blood Pressure Position Supine Blood Pressure Position [Right Arm] Supine 02 Sat by Pulse Oximetry 97 97 96 Oxygen Delivery Method Room Air Room Air Room Air 07/12/25 10:00 07/12/25 10:30 07/12/25 11:01 Temperature Temperature Source Pulse Rate 56 L 51 L 52 L Pulse Rate [Right] Respiratory Rate Blood Pressure 128/102 H 159/85 H 188/90 H Blood Pressure [Right Arm] Blood Pressure Mean [Right Arm] Blood Pressure Source Blood Pressure Source [Right Arm] Blood Pressure Position Blood Pressure Position [Right Arm] 02 Sat by Pulse Oximetry 95 95 96 Oxygen Delivery Method Room Air Room Air Room Air Orders (Tests/Meds): ORDERS Category Date Time Status Lumbar spine XR 2-3 views [XR lumbar spine 2-3V] Stat Exams 07/12/25 09:51 Completed HIV Combo Stat Lab 07/12/25 09:34 Ordered Hepatitis C Ab Qual. W/ RFX Stat Lab 07/12/25 09:34 Ordered Medical Decision Narrative: Miguel Saldaña is an 85-year-old male with a history of hypertension, diabetes, hypothyroidism, hyperlipidemia 5 days of mid lower back pain. Who presents to the emergency department for complaints of 5 days of mid lower back pain after twisting to get out of bed and felt his back catch . Since then, he states that he feels like his back is catching and has pain in the middle of his lumbar spine. He denies any numbness, tingling, weakness. He has been ambulatory without difficulty. He denies any difficulty urinating or urinary retention. He denies any changes in his bowel habits. He denies any numbness or tingling in his genital region. On arrival, patient is hypertensive but hemodynamically stable, no acute distress, breathing comfortably on room air with appropriate oxygen saturation. Physical exam, stated above, revealed well-appearing male sitting comfortably on his stretcher. He is sitting upright And supporting his own weight. He has no midline thoracic or lumbar spine tenderness, step-offs or deformity. No significant paraspinal muscle tenderness. He has full strength and sensation in the bilateral lower extremities. He does not describe any radicular symptoms to me. He has no red flag symptoms for cauda equina and no risk factors for epidural abscess. I do feel the patient symptomatology is most likely explained by a muscle strain given the mechanism and exam. He is not having any urinary symptoms to suggest urinary tract infection. Will obtain lumbar spine x-rays X-ray imaging was interpreted by me personally. No acute fracture. There is rightward curvature of the lumbar spine with degenerative changes. Moderate to space narrowing at L4-L5 and L5-S1 On reassessment, patient states that his pain has improved and he is pain-free at this moment. I do feel the patient likely has a muscle strain. Will recommend Tylenol and lidocaine patches for symptomatic relief. Strict return precautions were given. I encouraged him to follow-up with his primary care doctor early next week if symptoms have not improved. All questions were answered. He demonstrated understanding and was in agreement this plan. He was then discharged from the emergency department in stable condition. Critical Care Critical Care Time Critical Care Time: No
[2025-07-12 10:00] VITALS: BP 128/102; PULSE 56; O2SAT 95
[2025-07-12 10:30] VITALS: BP 159/85; PULSE 51; O2SAT 95
[2025-07-12 11:01] VITALS: BP 188/90; PULSE 52; O2SAT 96
[2025-07-12 11:30] VITALS: BP 188/90; PULSE 53; RESP 16; TEMP 36.6; O2SAT 97
== END 2025-07-12 11:37 | disposition home or self-care (01) ==
PROVIDERS: Emergency Provider Student in an Organized Health Care Education/Training Program; PCP Nurse Practitioner
DX: M54.50 Low back pain, unspecified (principal); X50.1XXA Overexertion from prolonged static or awkward postures, initial encounter
CPT/HCPCS: 72100; 99283; 99284